=== PATIENT | female | born 1965 | race Caucasian/White ===

== ENCOUNTER → 2020-06-08 14:53 | Outpatient (CLI) | payer MEDICARE, MEDICAID, SELFPAY ==
[2020-06-08 17:15] LABS: Basophils % 0.3 % (0.1-2.0); Eosinophils # 0.1 K/mm3 (0.0-0.4); Eosinophils % 0.6 % (0.1-12.0); Hematocrit 45.9 % (37.0-47.0); Hemoglobin 14.5 g/dL (12.2-16.2); Lymphocytes # 1.8 K/mm3 (0.7-4.5); Lymphocytes % 20.5 % (10-50); Mean Corpuscular HGB Conc 31.5 g/dL (31.8-35.4); Mean Corpuscular Hemoglobin 26.4 pg (27.0-31.2); Mean Corpuscular Volume 83.7 fl (81-99); Mean Platelet Volume 7.6 fl (7.4-10.4); Monocytes # 0.4 K/mm3 (0.1-1.0); Monocytes % 3.9 % (1.7-9.3); Neutrophils # 6.6 K/mm3 (1.8-7.8); Neutrophils % 74.6 % (37.0-80.0); Platelet Count 273 K/mm3 (142-424); Red Blood Count 5.48 M/mm3 (4.20-5.40); Red Cell Distribution Width 12.4 % (11.5-17.5); White Blood Count 8.8 K/mm3 (4.8-10.8)
[2020-06-08 17:26] LABS: Alanine Aminotransferase 13 U/L (12-78); Albumin Level 4.6 g/dl (3.5-5.0); Albumin/Globulin Ratio 1.3 (1.1-1.8); Alkaline Phosphatase 108 U/L (38-126); Anion Gap 12.8 mEq/L (5-15); Aspartate Amino Transferase 23 U/L (14-36); Bilirubin,Total 0.3 mg/dl (0.2-1.3); Blood Urea Nitrogen 11 mg/dl (7-17); Calcium 10.2 mg/dl (8.4-10.2); Carbon Dioxide 28 mmol/L (22.0-30.0); Chloride 102 mmol/L (98-107); Estimated Glomerular Filt Rate 75 ml/min (>60); GFR (African American) 91 ML/MIN (>60); Globulin 3.6 g/dL (1.3-3.2); Glucose 105 mg/dl (74-100); Magnesium 1.7 mg/dl (1.6-2.3); Potassium 3.8 mmoL/L (3.5-5.1); Sodium 139 mmol/L (136-145); Total Protein,Serum 8.2 g/dl (6.3-8.2)
[2020-06-08 17:44] LABS: 25-OH Vitamin D, Total 31.8 ng/mL (30-100)
[2020-06-08 18:15] LABS: Vitamin B12 313 pg/mL (239-931)
== END ==
PROVIDERS: PCP Nurse Practitioner Family; Visit Provider Internal Medicine Gastroenterology
DX: Z01.812 Encounter for preprocedural laboratory examination (principal); Z11.52 Encounter for screening for COVID-19; K21.9 Gastro-esophageal reflux disease without esophagitis; R13.10 Dysphagia, unspecified
CPT/HCPCS: 36415; 80053; 82306; 82607; 83735; 84443; 85025; U0003

== ENCOUNTER → 2020-07-20 14:51 | Outpatient (CLI) | payer MEDICARE, MEDICAID, SELFPAY ==
--- NOTE | 2020-07-20 14:55 | MR_ITS ---
PROCEDURE INFORMATION: Exam: MR Cervical Spine Without Contrast Exam date and time: 07/20/2020 2:55 PM Age: 55 years old Clinical indication: Neck pain; Prior surgery; Surgery date: 6+ months; Additional info: Cervical radiculopathy. HX cervical surgery x1yr ago. Unable to turn head to the left. Bilateral neck and shoulder pain. RT arm tingling. Symptoms [id number]. No injury or trauma. 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 No prior. TECHNIQUE: Imaging protocol: Multiplanar magnetic resonance images of the cervical spine without contrast. Total images: 291 COMPARISON: No relevant prior studies available. FINDINGS: Vertebrae: Odontoid intact. Visualized upper thoracic spine levels were normal. Spinal cord: Mild ventral and dorsal cord surface flattening at C5-C6 related to canal stenosis, with no intrinsic cord signal changes or syrinx. C1-C2: Craniocervical alignment is normal. Unremarkable. C2-C3: Disc desiccation. No canal or foraminal stenosis. C3-C4: Disc desiccation. Slight 1 mm disc bulge. No canal or foraminal stenosis. C4-C5: Slight 1 mm anterolisthesis. Disc desiccation and slight disc space narrowing. 1 mm disc bulge. No central canal stenosis. Moderate left-sided facet hypertrophic change with periarticular edema and periarticular marrow edema. Additional marrow edema with STIR hyperintensity tracks into the leftward pedicles and posterolateral vertebral bodies at C4 and C5. The lack of significant joint fluid or articular erosive change goes against infection somewhat and would tend to favor acute reactive changes of hypertrophic osteoarthritic change although this is not definitive. Postcontrast imaging may be helpful in further characterization. No gross signs of abscess. C5-C6: Disc desiccation and moderate disc space narrowing with 2 mm retrolisthesis and 3 mm posterior mixed spondylotic ridge. Moderate acute reactive end plate changes with STIR hyperintensity. Mild ligamentum flavum hypertrophy. Moderate-severe central canal stenosis with AP thecal sac dimension 6.5 mm. No intrinsic cord signal change. Moderate right and moderate-severe left foraminal stenosis. C6-C7: Prior ACDF without gross hardware complication. Slight central canal stenosis with AP thecal sac dimension 9.5 mm. Slight left foraminal stenosis. C7-T1: Normal. Soft tissues: Soft tissues are unremarkable. Thyroid: The thyroid gland is unremarkable. Vertebral arteries: Expected flow voids in the vertebral arteries. Other findings: Visualized portions of the brain are unremarkable. IMPRESSION: 1. At C5-C6 there is moderate-severe central canal stenosis due to a 3 mm posterior mixed spondylotic protrusion and superimposed ligamentum flavum hypertrophy dorsally, as well as 2 mm degenerative retrolisthesis at this level. 2. Moderate acute reactive end plate changes at C5-C6 with STIR hyperintensity. 3. Moderate left-sided facet arthropathy at C4-C5 demonstrating moderate periarticular marrow edema extending into the leftward pedicles and vertebral bodies, with mild periarticular soft tissue edema. This is nonspecific in nature. It could represent acute reactive inflammatory changes of osteoarthritis. Septic joint seems less likely given the lack of articular erosions and joint fluid, but is not fully excluded, correlate clinically. Postcontrast MRI imaging may be helpful. 4. Multilevel bilateral foraminal stenoses as detailed above.
== END ==
PROVIDERS: PCP Nurse Practitioner Family; Visit Provider Neurological Surgery
DX: M50.20 Other cervical disc displacement, unspecified cervical region (principal); M54.12 Radiculopathy, cervical region
CPT/HCPCS: 72141; 76376

== ENCOUNTER → 2020-10-17 12:58 | Outpatient (CLI) | payer MEDICARE, MEDICAID, SELFPAY ==
--- NOTE | 2020-10-17 13:01 | MR_ITS ---
PROCEDURE: MR LUMBAR SPINE WO/W CON CLINICAL INDICATION: HX OF LUMBAR SURGERY, ACUTE PAIN OF RIGHT LOWER EXTREMITY COMPARISON: MR MR CERVICAL SPINE WO CON from 07/20/2020 TECHNIQUE: Standard multiplanar multiecho sequences are performed without contrast. 3-D MIP and myelographic images are also rendered and reviewed FINDINGS: Normal alignment. Spinal cord ends at L1. T11-T12: Mild degenerative disc disease. T12-L1: Degenerative disc.: Mild degenerative disc disease with minimal bulging disc. Osteophytes are. There is facet ligamentum hypertrophy with lateral recess narrowing. L2-L3: Degenerative disc disease bulging disc with facet ligamentum hypertrophy and with bilateral lateral recess narrowing and moderate bilateral foraminal narrowing greater than right. There is a small central disc protrusion. Borderline canal stenosis. L3-L4: 2 mm anterolisthesis of L3 with bulging disc with severe facet and ligamentum hypertrophic change with moderate canal stenosis at 8 mm and severe bilateral lateral recess narrowing with moderate right and severe left-sided foraminal narrowing. L4-5: Mild bulging disc with severe facet and ligamentum hypertrophy. There is severe bilateral lateral recess narrowing due to the facet and ligamentum hypertrophy. This is slightly greater on the right with impingement upon the descending right L5 and S1 nerve roots and impingement upon the left L5 nerve root. Moderate to severe canal stenosis. L5-S1: Degenerative disc disease with bulging disc with endplate osteophyte. There is a broad-based central and right paracentral bulging disc/disc osteophyte complex eccentric toward the right which is impinging upon the right S1 nerve root. There is severe right foraminal narrowing due to facet hypertrophic change impinging upon the right exiting L5 nerve root. Canal stenosis is present at this level. There is severe facet hypertrophic change. There is severe left foraminal narrowing. IMPRESSION: Abnormal MRI of the lumbar spine. There is multilevel lumbar spondylosis with degenerative disc disease, bulging disc, facet and ligamentum hypertrophy with resultant multilevel canal stenosis, lateral recess narrowing, and foraminal narrowing with neural impingement. Please see above for detailed description at each level. Dictated by: Camacho Sierra MD 10/18/2020 06:42 Camacho Sierra MD in [facility] 10/18/2020 06:42
== END ==
PROVIDERS: PCP Nurse Practitioner Family; Visit Provider Physician Assistant Medical
DX: M54.40 Lumbago with sciatica, unspecified side (principal); M79.604 Pain in right leg; Z98.890 Other specified postprocedural states
CPT/HCPCS: 72158; 76376; A9576

== ENCOUNTER → 2020-11-09 08:37 | Outpatient (CLI) | payer MEDICARE, MEDICAID, SELFPAY ==
--- NOTE | 2020-11-09 08:44 | CT_ITS ---
PROCEDURE INFORMATION: Exam: CT Cervical Spine Without Contrast Exam date and time: 11/09/2020 8:44 AM Age: 55 years old Clinical indication: Other: Bilateral arm numbness/neck pain; Additional info: Cervical myelopathy, cervical cord compression, TECHNIQUE: Imaging protocol: Computed tomography images of the cervical spine without contrast. Radiation optimization: All CT scans at this facility use at least one of these dose optimization techniques: automated exposure control; mA and/or kV adjustment per patient size (includes targeted exams where dose is matched to clinical indication); or iterative reconstruction. COMPARISON: MR CERVICAL SPINE WO CON 07/20/2020 3:06 PM FINDINGS: Vertebrae: There is no evidence of acute fracture. Degenerative osteoarthrosis anteriorly C1-C2 with periarticular spurs and sclerosis. Anterior metallic fusion hardware at C6-C7 appears intact with no evidence of loosening or infection. Straightening of cervical lordosis above the fusion, suggesting muscle spasm. C2-C3: Shallow posterior disc bulge or protrusion indenting the thecal sac series 3, image 36. Central spinal canal appears very mildly narrowed. Neural foramina are ample. C3-C4: Mild degenerative spondylosis. Posterior disc narrowing. Shallow posterior disc bulge. Small lateral uncovertebral spurs greater toward the left. Mild bilateral facet arthropathy. The central spinal canal is very mildly narrowed. Left neural foramen is moderately narrowed, right foramen remains ample. C4-C5: Prominent erosive left facet arthropathy with 2 mm anterolisthesis at C4-C5. The disc appears moderately narrowed posteriorly, and there is mild spondylosis. There is shallow posterior disc bulging. The central spinal canal is minimally narrowed. The left C5 neural foramen appears moderately severely stenosed, and right neural foramen remains ample. C5-C6: The disc appears moderately degenerated and narrowed, with anterior, lateral and posterior spondylosis. Disc-osteophyte complex indents the thecal sac and impinges on the ventral surface of the cord, with at least moderate central spinal stenosis. Canal appears narrowed to 7-8 mm AP diameter in the midline. Mild bilateral facet arthropathy. No significant listhesis is seen in the neutral supine position. Both C6 foramina appear moderately severely stenosed, primarily due to lateral uncovertebral spurs. C6-C7: Post discectomy. Anterior fusion hardware appears intact. The bony central spinal canal is mildly narrowed but adequate. Mild bilateral facet hypertrophy. The C7 foramina are moderately narrowed by facet arthropathy on the right, and lateral uncovertebral spurs on the left. C7-T1: The disc appears narrowed posteriorly. Soft tissue resolution is limited due to metallic hardware. No definite spinal or foraminal stenoses. Other bones/joints: There are no lytic skeletal lesions seen. Soft tissues: No acute findings. No prevertebral swelling or hematoma. Surgical clips in the right face, post parotidectomy; There are no soft tissue masses or fluid collections. Sinuses: Endoscopic sinus surgical changes with bilateral maxillary antrostomies and partial ethmoidectomies. There are bubbly secretions in the right sphenoid sinus, which could be [id number] sinusitis, with some thick fluid in the posterior sinus, series 3, images 7 -10. Mild ethmoid mucosal thickening. Mastoid air cells: Partial opacification of right mastoid air cells, worrisome for mastoid effusion nonspecific etiology. Correlate for acute mastoiditis. Lungs: No acute findings in the visualized lung apices. IMPRESSION: 1. No acute fracture o
== END ==
PROVIDERS: PCP Nurse Practitioner Family; Visit Provider Physician Assistant Medical
DX: M54.2 Cervicalgia (principal); M54.40 Lumbago with sciatica, unspecified side; M54.12 Radiculopathy, cervical region; G95.9 Disease of spinal cord, unspecified; G95.20 Unspecified cord compression
CPT/HCPCS: 72125

== ENCOUNTER → 2021-01-28 12:43 | Outpatient (CLI) | payer MEDICARE, MEDICAID, SELFPAY | PROVIDERS: PCP Nurse Practitioner Family; Visit Provider Nurse Practitioner | DX: Z20.822 Contact with and (suspected) exposure to COVID-19 (principal) | CPT/HCPCS: C9803; U0003; U0005 ==

== ENCOUNTER → 2021-03-11 15:45 | Outpatient (CLI) | payer MEDICARE, MEDICAID, SELFPAY | PROVIDERS: Visit Provider Nurse Practitioner | DX: Z20.822 Contact with and (suspected) exposure to COVID-19 (principal) | CPT/HCPCS: C9803; U0003; U0005 ==

== ENCOUNTER 2024-12-28 13:00 | Outpatient (RCR) | payer MEDICARE, SELFPAY | END 2024-12-28 23:59 | disposition home or self-care (01) | LOC: PT 13:00 | PROVIDERS: Visit Provider Physician Assistant Medical | DX: Z47.89 Encounter for other orthopedic aftercare (principal); Z98.1 Arthrodesis status | CPT/HCPCS: 97014; 97110; 97162; 97530; G0283 ==

== ENCOUNTER 2024-12-28 13:18 | Emergency (ER) | payer MEDICARE, SELFPAY ==
--- OUTSIDE RECORDS SUMMARY | 2024-11-22 11:11 | XMS_ITS | Encounter Summary ---
Author Organization Healthcare Address [address] [place] [address] Care Team Providers Care Blankbook Stitching Machine Operator Name Role Phone Ceci Couch APRN Primary Care Provider Jed Toribio MD Unavailable [phone] Ceci Aguilar Unavailable [phone] Nadir John MD Unavailable [phone] Ceci Aguilar Unavailable [phone] Nadir John MD Unavailable [phone] Encounter Details Date Type Department Care Team (Latest Contact Info) Description 11/22/2024 11:11 AM EDT - 11/22/2024 11:59 PM EDT Hospital En[facility] [address] [place] [id number] S/P cervical spinal fusion; Status post lumbar spinal fusion Discharge Disposition: Home or Self Care Social History Tobacco Use Types Packs/Day Years Used Date Smoking Tobacco: Former Cigarettes 1 40 0 04/1980 - 04/2020 Passive Smoke Exposure: Past Smokeless Tobacco: Never Alcohol Use Standard Drinks/Week Comments Never 0 (1 standard drink = 0.6 oz pur e alcohol) Social Connection and Isolation Panel Answer Date Recorded In a typical week, how many times do you talk on the phone with family, friends, or neighbors? More than three times a week 08/14/2023 How often do you get togethe r with friends or relatives? More than three times a week 08/14/2023 How often do you attend chur or hindu services? Never 08/14/2023 Do you belong to any clubs o r organizations such as mandaeism groups, unions, fraternal or athletic groups, or school groups? No 08/14/2023 How often do you attend meet ings of the clubs or organizations you belong to? Never 08/14/2023 Are you , , di vorced, , never , or living with a partner? 08/14/2023 AUDIT-C Answer Date Recorded Q1: How often do you have a drink containing alcohol? Never 08/14/2023 Q2: How many drinks containi ng alcohol do you have on a typical day when you are drinking? Patient does not drink Q3: How often do you have si x or more drinks on one occasion? Never 08/14/2023 PHQ-2 Answer Date Recorded Patient Health Questionnaire-2 Score 6 06[facility]20[facility] - Occupational Stress Questionnaire Answer Date Recorded Do you feel stress - tense, restless, nervous, or anxious, or unable to sleep at night because your mind is troubled all the time - these days? Not at all 08/14/2023 Exercise Vital Sign Answer Date Recorde d On average, how many days pe r week do you engage in moderate to strenuous exercise (like a brisk walk)? 0 days 08/14/2023 On average, how many minutes do you engage in exercise at this level? 0 min 08/14/2023 PHQ-9 Answer Date Recorded Patient Health Questionnaire-9 Score 20 06/10/2024 Humiliation, Afraid, Rape, and Kick questionnair e Answer Date Recorded Within the last year, have y ou been afraid of your partner or ex-partner? No 10/10/2024 Within the last year, have y ou been humiliated or emotionally abused in other ways by your partner or ex-partner? No Within the last year, have y ou been kicked, hit, slapped, or otherwise physically hurt by your partner or ex-partner? No 10/10/2024 Within the last year, have y ou been raped or forced to have any kind of sexual activity by your partner or ex-partner? No 10/10/2024 Hunger Vital Sign Answer Date Recorded Within the past 12 months, y ou worried that your food would run out before you got the money to buy more. Never true 10/11/19 25 Within the past 12 months, t he food you bought just didn't last and you didn't have money to get more. Never true 10/10/2024 PRAPARE - Transportation Answer Date Re corded In the past 12 months, has l ack of transportation kept you from medical appointments or from getting medications? No 09/30 In the past 12 months, has l ack of transportation kept you from meetings, work, or from getting things needed for daily living? No 10/10/2024 Housing Stability Vital Sign Answer Tc e Recorded In the last 12 months, was t here a time when you were not able to pay the mortgage or rent on time? No 10/10/2024 Number of Times Moved in the Last Year Not on fi le 10/10/2024 At any time in the past 12 m [facility], were you homeless or living in a prison (including now)? No 10/10/2024 Safety and Environment Answer Date Chip rded Do you worry that your child may have been physically abused? Patient declined 08/18/2023 Do you worry that your child may have been sexually abused? Patient declined 08/18/2023 Are there any guns kept in o r around your home or where your child spends time? Patient declined 08/18/2023 Guns Unloaded or Locked Away Not on file Utilities Answer Date Recorded In the past 12 months has th e [employer], [employer], oil, or water [employer] threatened to shut off services in your home? No 10/10/2024 PHQ-2A Answer Date Recorded Patient Health Questionnaire-2 Score 6 11/06/2022 Comments No Sex and Gender Information Value Date Recorded Sex Assigned at Female 01/30/2021 12:26 PM EST Legal Sex Female 8:17 PM EDT Gender Identity Female 01/30/2021 12:26 PM EST Sexual Orientation Not on file documented as of this encounter Medications at Time of Discharge acetaminophen (Tylenol) 500 MG tablet Take 2 tablets by mouth every 6 hours as needed for pain or headaches. 05/31/2024 baclofen (Lioresal) 10 MG tabletIndications:S/ P cervical spinal fusion Take 1 tablet by mouth 3 times a day as needed for muscle spasms. 90 tablet 2 07/12/2024 busPIRone (Buspar) 10 MG tabletIndications:Ot her depression TAKE 1 TABLET BY MOUTH THREE TIMES DAILY 270 tablet 1 11/15/2024 cyclobenzaprine (Fexmid) 7.5 MG tablet Take 1 tablet by mouth 3 times a day. 30 tablet 10/11/2024 fluticasone (Flonase) 50 MCG/ACT nasal spray USE 2 SPRAY(S) IN EACH NOSTRIL ONCE DAILY, SHAKE GENTLY, PRIME BEFORE FIST USE, CLEAN TIP AFTER USE 48 g 3 09/11/2023 lactobacillus (Culturelle Immunity Support) capsule Take 1 capsule by mouth daily. 10/11/2024 lamoTRIgine (LaMICtal) 200 MG tabletIndications:Ot her depression Take 1 tablet by mouth once daily 90 tablet 1 06/01/2024 methocarbamol (Robaxin) 500 MG tabletIndications:St atus post lumbar spinal fusion Take 2 tablets by mouth 4 times a day as needed for muscle spasms. 60 tablet 2 10/25/2024 naloxone (Narcan) 4 mg/0.1 mL nasal spray 1. Give 1 spray in nostril for no/slow breathing or cannot wake after opioid use 2. Call 911 3. Repeat in other nostril if symptoms continue 1 each 05/31/2024 omeprazole (PriLOSEC) [address] capsuleIndications:C hronic GERD TAKE 1 CAPSULE BY MOUTH TWICE DAILY DO NOT CRUSH OR CHEW 180 capsule 1 10/26/2024 ondansetron ODT (Zofran-ODT) 4 MG disintegrating tabletIndications:Na usea DISSOLVE 1 TABLET IN MOUTH EVERY 8 HOURS NEEDED FOR NAUSEA AND VOMITING 20 tablet 10/27/2024 senna-docusate (Jeannine-Colace) 8.6-50 MG tablet Take 2 tablets by mouth 2 times a day. 20 tablet 10/11/2024 sertraline (Zoloft) 100 MG tablet Take 1 tablet by mouth daily. 90 tablet 1 06/01/2024 diazePAM (Valium) 5 MG tabletIndications:St atus post lumbar spinal fusion,S/P cervical spinal fusion Take 1 tablet by mouth every 12 hours as needed for anxiety, sleep or muscle spasms. 45 tablet 10/25/2024 5 oxyCODONE (Roxicodone) 10 MG immediate release tabletIndications:St atus post lumbar spinal fusion,S/P cervical spinal fusion Take 1 tablet by mouth every 6 hours as needed for moderate pain or severe pain. 60 tablet 11/21/2024 5 oxyCODONE (Roxicodone) 15 MG immediate release tablet Take 1 tablet by mouth every 4 hours as needed for severe pain. 30 tablet 10/11/2024 5 oxyCODONE (Roxicodone) 15 MG immediate release tabletIndications:St atus post lumbar spinal fusion,S/P cervical spinal fusion Take 1 tablet by mouth every 6 hours as needed for moderate pain or severe pain. 60 tablet 10/25/2024 venlafaxine XR (Effexor-XR) 150 MG 24 hr capsule Take 1 capsule by mouth daily. Take with food. 90 capsule 1 06/01/2024 5 documented as of this encounter Plan of Treatment Upcoming Encounters Date Type Department Care Team (Late st Contact Info) Description 01/04/2025 3:20 PM EST Office Visit [facility] Orthopaedic Surgery & Sports Medicine [address] [place] [address] Nadir John MD [address] [place] [address] documented as of this encounter Goals Goal Patient Goal Type Associated Problems Recent Progress Patient-Stated? Author Autogenerat ed Goal Care Plan Autogenerated Problem No Jordan, My T documented as of this encounter Procedures Procedure Name Priority Date/Time Associated Diagnosis Comments XR LUMBAR SPINE 2 OR 3 VIEWS Routine 11/22/2024 11:20 AM EDT Status post lumbar spinal fusion XR CERVICAL SPINE 2 OR 3 VIEWS Routine 11/22/2024 11:20 AM EDT S/P cervical spinal fusion documented in this encounter Results * XR Lumbar Spine 2 or 3 Views (11/22/2024 11:20 AM EDT) Anatomical Region Laterality Modality Spine, L-spine Digital Radiogra phy Impressions 11/22/2024 11:34 AM EDT Grade 1 anterolisthesis at C2-3 on flexion only. Anterior cervical fusion hardware without hardware failure or loosening. L2-5 posterior fusion. No hardware failure or loosening. CRITICAL RESULT: No. COMMUNICATION: Per this written report. Drafted by Yemi Rodriguez MD on 11/22/2024 11:32 AM Final report signed by Yemi Rodriguez MD on 11/22/2024 11:34 AM Narrative 11/22/2024 11:34 AM EDT CLINICAL INDICATION: follow up fusion TECHNIQUE: XR LUMBAR SPINE 2 OR 3 VIEWS, XR CERVICAL SPINE 2 OR 3 VIEWS COMPARISON: Radiograph 10/25/2024 FINDINGS: Cervical spine: Patient is edentulous. Grade 1 anterolisthesis at C2-3 on flexion. Postsurgical changes from anterior fusion at C3-4 as well as C4-C6. No prevertebral swelling. Lumbar spine: Overlying soft tissue, stool, bowel gas obscures bone detail. L2- L5 posterior fusion. No hardware failure or loosening. Similar appearance of disc space narrowing and irregularity at L2-3. Grade 1 anterolisthesis at L4-5 redemonstrated. Aortic atherosclerotic vascular calcifications. Marked L5-S1 discogenic disease. Procedure Note Yemi Rodriguez MD - 11/22/2024 CLINICAL INDICATION: follow up fusion TECHNIQUE: XR LUMBAR SPINE 2 OR 3 VIEWS, XR CERVICAL SPINE 2 OR 3 VIEWS COMPARISON: Radiograph 10/25/2024 FINDINGS: Cervical spine: Patient is edentulous. Grade 1 anterolisthesis at C2-3 onflexion. Postsurgical changes from anterior fusion at C3-4 as well asC4-C6. No prevertebral swelling. Lumbar spine: Overlying soft tissue, stool, bowel gas obscures bonedetail. L2-L5 posterior fusion. No hardware failure or loosening. Similarappearance of disc space narrowing and irregularity at L2-3. Grade 1anterolisthesis at L4-5 redemonstrated. Aortic atherosclerotic vascularcalcifications. Marked L5-S1 discogenic disease. IMPRESSION: Grade 1 anterolisthesis at C2-3 on flexion only. Anterior cervical fusion hardware without hardware failure or loosening. L2-5 posterior fusion. No hardware failure or loosening. CRITICAL RESULT: No. COMMUNICATION: Per this written report. Drafted by Yemi Rodriguez MD on 11/22/2024 11:32 AM Final report signed by Yemi Rodriguez MD on 11/22/2024 11:34 AM Ceci SEVERINO IMG XR PROCEDURES Final Result * XR Cervical Spine 2 or 3 Views (11/22/2024 11:20 AM EDT) Anatomical Region Laterality Modality Spine, C-spine Digital Radiogra phy Impressions 11/22/2024 11:34 AM EDT Grade 1 anterolisthesis at C2-3 on flexion only. Anterior cervical fusion hardware without hardware failure or loosening. L2-5 posterior fusion. No hardware failure or loosening. CRITICAL RESULT: No. COMMUNICATION: Per this written report. Drafted by Yemi Rodriguez MD on 11/22/2024 11:32 AM Final report signed by Yemi Rodriguez MD on 11/22/2024 11:34 AM Narrative 11/22/2024 11:34 AM EDT CLINICAL INDICATION: follow up fusion TECHNIQUE: XR LUMBAR SPINE 2 OR 3 VIEWS, XR CERVICAL SPINE 2 OR 3 VIEWS COMPARISON: Radiograph 10/25/2024 FINDINGS: Cervical spine: Patient is edentulous. Grade 1 anterolisthesis at C2-3 on flexion. Postsurgical changes from anterior fusion at C3-4 as well as C4-C6. No prevertebral swelling. Lumbar spine: Overlying soft tissue, stool, bowel gas obscures bone detail. L2- L5 posterior fusion. No hardware failure or loosening. Similar appearance of disc space narrowing and irregularity at L2-3. Grade 1 anterolisthesis at L4-5 redemonstrated. Aortic atherosclerotic vascular calcifications. Marked L5-S1 discogenic disease. Procedure Note Yemi Rodriguez MD - 11/22/2024 CLINICAL INDICATION: follow up fusion TECHNIQUE: XR LUMBAR SPINE 2 OR 3 VIEWS, XR CERVICAL SPINE 2 OR 3 VIEWS COMPARISON: Radiograph 10/25/2024 FINDINGS: Cervical spine: Patient is edentulous. Grade 1 anterolisthesis at C2-3 onflexion. Postsurgical changes from anterior fusion at C3-4 as well asC4-C6. No prevertebral swelling. Lumbar spine: Overlying soft tissue, stool, bowel gas obscures bonedetail. L2-L5 posterior fusion. No hardware failure or loosening. Similarappearance of disc space narrowing and irregularity at L2-3. Grade 1anterolisthesis at L4-5 redemonstrated. Aortic atherosclerotic vascularcalcifications. Marked L5-S1 discogenic disease. IMPRESSION: Grade 1 anterolisthesis at C2-3 on flexion only. Anterior cervical fusion hardware without hardware failure or loosening. L2-5 posterior fusion. No hardware failure or loosening. CRITICAL RESULT: No. COMMUNICATION: Per this written report. Drafted by Yemi Rodriguez MD on 11/22/2024 11:32 AM Final report signed by Yemi Rodriguez MD on 11/22/2024 11:34 AM Ceci SEVERINO IMG XR PROCEDURES Final Result documented in this encounter Visit Diagnoses Diagnosis S/P cervical spinal fusion Arthrodesis status Status post lumbar spinal fusion Arthrodesis status documented in this encounter Additional Health Concerns Active Problems Noted Date Diagnosed Date Autogenerated Problem 09/05/2024 Assessment Noted Time PHQ-9 Depression Total Score: 20 025 9:29 AM EDT A fall risk assessment has been complete d for the patient 11/22/2024 11:38 AM EDT A Body Mass Index follow-up plan has been documented for the patient 11/22/2024 9:23 PM EDT documented as of this encounter Care Teams Blankbook Stitching Machine Operator Relationship Specialty Start Date End Date Ceci Couch APRN [address] [place] [address] PCP - General 07/13/20 Jed Toribio MD [address] [place] [address] Surgeon Neurosurgery 10/02/20 Ceci Aguilar PA [address] [place] [address] Physician Cord Cutter Neurosurgery 10/24/20 Nadir John MD [address] [place] [address] Surgeon Neurosurgery 11/19/20 Ceci Aguilar PA [address] [place] [address] Physician Cord Cutter Neurosurgery 02/13/21 Nadir John MD [address] [place] [address] Surgeon Neurosurgery 04/29/21 documented as of this encounter
--- OUTSIDE RECORDS SUMMARY | 2024-11-22 11:20 | XMS_ITS | Encounter Summary ---
Author Organization Healthcare Address [address] [place] [address] Care Team Providers Care Station Mechanic Name Role Phone Ceci Couch APRN Primary Care Provider [phone] Jed Toribio MD Unavailable [phone] Ceci Gilliam Unavailable [phone] Nadir John MD Unavailable [phone] Ceci Gilliam Unavailable [phone] Nadir John MD Unavailable [phone] Reason for Referral * Consultation (Routine) - Authorized Specialty Diagnoses / Procedures Referred By Jada hoyt Referred To Contact Pain Medicine Diagnoses Status post lumbar spinal fusion S/P cervical spinal fusion Other chronic postprocedural pain Ceci Gilliam PA [address] [place] [address] Phone: tel: fax: Referral ID Status Reason Start Date Expiration Date Visits Requested Visits Authorized [id number] Authorized Specialty Services Required 11/22/2024 05/24/2026 [address] Segundo Mcguire Encounter Details Date Type Department Care Team (Latest Contact Info) Description 11/22/2024 11:20 AM EDT Office Visit [place] [facility] [address] [place] [address] Ceci Gilliam PA [address] [place] [address] Status post lumbar spinal fusion (Primary Dx); S/P cervical spinal fusion; Tobacco use; Other chronic postprocedural pain Social History Tobacco Use Types Packs/Day Years [...] week 08/14/2023 How often do you attend [facility] or faith services? Never 08/14/2023 Do you belong to any clubs o r organizations such as denominational groups, unions, fraternal or athletic groups, or [...] Recorded Patient Health Questionnaire-2 Score 6 06/10/2024 [facility] [place] [facility] - Occupational Stress Questionnaire Answer Date Recorded [...] [facility] time in the past [facility] were you homeless or living in a care home (including now)? No 10/10/2024 Safety and Environment [...] Recorded In the past 12 months has e electric, gas, oil, or water company threatened to shut off services in your home? No 10/10/2024 PHQ-2A Answer Date Recorded Patient Health Questionnaire-2 Score 6 11/06/2022 Comments No Sex and Gender Information Value Date Recorded Sex Assigned at Female 01/30/2021 12:26 PM EST Legal Sex Female 8:17 PM EDT Gender Identity Female 01/30/2021 12:26 PM EST Sexual Orientation Not on file documented as of this encounter Last Filed Vital Signs Vital Sign Reading Time Taken Comments Blood Pressure 108/78 11/22/2024 11:38 AM EDT Pulse 100 11/22/2024 11:38 AM EDT Temperature - - Respiratory Rate - - Oxygen Saturation 100% 11/22/2024 11:38 AM EDT Inhaled Oxygen Concentration - - Weight 50 kg (110 lb 3.7 oz) 11/22/2024 11:38 AM EDT Height 152.4 cm (5') 11/22/2024 11:38 AM EDT Body Mass Index 21.53 11/22/2024 11:38 AM EDT documented in this encounter Miscellaneous Notes * Progress Notes - Ceci Gilliam PA - 11/22/2024 11:20 AM EDT We had the pleasure of seeing your patient in our clinic today for continued Neurosurgical evaluation. Chief Complaint 6 week postoperative follow up. History Of Present Illness Rachel Bronson is a 59 y.o. female here today for continued neurosurgical surveillance. The patient is now 6 weeks status post an L2-L5 laminectomy and fusion with L4-[address] John on 10/07/2024. She is also 6 months status post C3-4 ACDF from prior C4-5-6 and C6-7 ACDFs. Overall, the patient continues to do well. She continues to endorse neck pain with residual numbness and tingling in both hands; however, the numbness and tingling in her hands continues to improve. She feels her balance is still unsteady, reporting a fall on Thursday. Since the fall, she feels numbness in the right lower back and down the right lower extremity into the foot. She endorses pain in the right lower extremity along posterior thigh. She feels her right side is not working well. She states her legs give out on her for no apparent reason. She denies any specific triggers. She is scheduled to start physical therapy on December 05, 2024. She has not had any physical therapy since surgery. She continues taking pain medication, oxycodone, and Valium for muscle spasms which are beneficial. She denies loss of bowel or bladder incontinence. The patient has resumed using nicotine again and smokes up to a pack a day. The patient denies any issues or concerns with the incision. She denies loss of bowel or bladder incontinence. Past Medical History She has a past medical history of Carpal tunnel syndrome, unspecified upper limb, Cellulitis, unspecified, Diverticulitis of large intestine without perforation or abscess without bleeding, Essential(primary) hypertension, GERD (gastroesophageal reflux disease), and Seasonal allergies. Surgical History She has a past surgical history that includes Carpal tunnel release (N/A); section, low transverse (N/A); Sinus surgery (N/A); Other surgical history (N/A); Other surgical history (N/A); Other surgical history (N/A); Other surgical history (N/A); Cervical fusion (Left, 01/30/2021); Lumbar laminectomy (Right, 03/13/2021); Anterior cervical discectomy w/ fusion (Left, 05/27/2024); Neck surgery (Left); Spine surgery; and Spinal fusion (10/07/2024). Family History Family History[1] Social History She reports that she quit smoking about 4 years ago. Her smoking use included cigarettes. She started smoking about 44 years ago. She has a 40 pack-year smoking history. She has been exposed to tobacco smoke. She has never used smokeless tobacco. She reports that she does not drink alcohol and doesnot use drugs. Medications Current Medications[2] Allergies Patient has no known allergies. Review of Systems 14 point review of systems was performed and was negative except as noted per HPI. General Physical Exam Constitutional Oriented to person, place, and time. Appears well-developed and well-nourished. Head Normocephalic and atraumatic. Neck No tracheal deviation or JVD noted. Pulmonary/Chest Effort normal, no shortness of breath Neurological Alert and oriented to person, place, and time Skin Skin is warm and dry Psychiatric Normal mood and affect, behavior and judgment Objective: MUSCULOSKELETAL EXAM: Well healed lumbar incision. Last Recorded Vitals Visit Vitals BP 108/78 Pulse 100 Ht 1.524 m (5') Wt 50 kg (110 lb 3.7 oz) SpO2 100% BMI 21.53 kg/m?? OB Status Postmenopausal Smoking Status Former BSA 1.45 m?? Labs No lab exists for component: ALB Imaging Cervical flexion-extension x-ray films were obtained today and personally reviewed. Imaging demonstrates a grade 1 anterolisthesis at C2-3 on flexion only. Anterior cervical fusion hardware spans from C3-C7 without evidence of hardware failure or loosening noted. Lumbar AP/Lat x-ray films were alsoobtained today and personally reviewed. Imaging demonstrates fusion posteriorly spanning from [id number] evidence of hardware failure or loosening noted. Assessment and Plan Rachel Bronson is a 59 y.o. female here today for continued neurosurgical surveillance. The patient is now 6 weeks status post an L2-L5 laminectomy and fusion with L4-[address] John on 10/07/2024. She is also 6 months status post C3-4 ACDF from prior C4-5-6 and C6-7 ACDFs. Overall, the patient is doing well. She is making progress. We feel she would greatly benefitfrom outpatient physical therapy for which she is scheduled to start on December 05, 2024. We encouraged the patient to continue using a walker for support until strength and mobility have improved with physical therapy. The patient is scheduled to follow up in 6 weeks for continued neurosurgical surv eillance. We will repeat cervical and lumbar x-ray films at follow-up appointment. Because the patient still requires opiate medication for pain control, we will place a referral to pain management to manage chronic opiate use. If the patient continues to endorse symptoms at her scheduled follow-up appointment despite physical therapy, we may elect to obtain new imaging for further diagnostic workup. However, we are hopeful that symptoms will improve with physical therapy. The patient understands that they are not a candidate for surgery unless they have been free from all nicotine products for 6 weeks and we will perform a cotinine test. We spent 3 to 10 minutes counseling them regarding the negative effects of tobacco on health. This includes heart disease, lung cancer, and stroke, as well as acceleration of degenerative change. The patient is agreeable to plan of care. They had the opportunity to ask questions, all of which were answered to their satisfaction. Parts of this note were dictated using [employer] voice recognition software. As a result, errors may occur. When identified, these adjunct faculty for medical terminology errors are corrected, but while every attempt is made to prevent/correct these, errors may still exist. I personally spent a total of 40 minutes on this encounter. This time includes face to face with patient, counseling and discussion and/or coordination of care. I spent >50% in tzey-[id number] communication with the patient over the diagnosis, treatment options and plan. Assessment/Plan Active Problems: There are no active Hospital Problems. Ceci Gilliam PA-C [facility] [place] Department of Neurosurgery [1] Family History Problem Relation Name Age of Onset Aneurysm Father Diabetes Brother Diabetes Father Hyperlipidemia Brother Hyperlipidemia Mother Hypertension Mother Hypertension Brother Migraines Sister [2] Current Outpatient Medications Medication Sig Dispense Refill acetaminophen (Tylenol) 500 MG tablet Take 2 tablets by mouth every 6 hours as needed for pain or headaches. baclofen (Lioresal) 10 MG tablet Take 1 tablet by mouth 3 times a day as needed for muscle spasms. 90 tablet 2 busPIRone (Buspar) 10 MG tablet TAKE 1 TABLET BY MOUTH THREE TIMES DAILY 270 tablet 1 cyclobenzaprine (Fexmid) 7.5 MG tablet Take 1 tablet by mouth 3 times a day. 30 tablet 0 diazePAM (Valium) 5 MG tablet Take 1 tablet by mouth every 12 hours as needed for anxiety, sleep ormuscle spasms. 45 tablet 0 fluticasone (Flonase) 50 MCG/ACT nasal spray USE 2 SPRAY(S) IN EACH NOSTRIL ONCE DAILY, SHAKE GENTLY, PRIME BEFORE FIST USE, CLEAN TIP AFTER USE 48 g 3 lactobacillus (Culturelle Immunity Support) capsule Take 1 capsule by mouth daily. lamoTRIgine (LaMICtal) 200 MG tablet Take 1 tablet by mouth once daily 90 tablet 1 methocarbamol (Robaxin) 500 MG tablet Take 2 tablets by mouth 4 times a day as needed for muscle spasms. 60 tablet 2 naloxone (Narcan) 4 mg/0.1 mL nasal spray 1. Give 1 spray in nostril for no/slow breathing or cannot wake after opioid use 2. Call 911 3. Repeat in other nostril if symptoms continue 1 each 0 omeprazole (PriLOSEC) [address] capsule TAKE 1 CAPSULE BY MOUTH TWICE DAILY DO NOT CRUSH OR CHEW 180capsule 1 ondansetron ODT (Zofran-ODT) 4 MG disintegrating tablet DISSOLVE 1 TABLET IN MOUTH EVERY 8 HOURS ASNEEDED FOR NAUSEA AND VOMITING 20 tablet 0 oxyCODONE (Roxicodone) 10 MG immediate release tablet Take 1 tablet by mouth every 6 hours as needed for moderate pain or severe pain. 60 tablet 0 oxyCODONE (Roxicodone) 15 MG immediate release tablet Take 1 tablet by mouth every 4 hours as needed for severe pain. 30 tablet 0 oxyCODONE (Roxicodone) 15 MG immediate release tablet Take 1 tablet by mouth every 6 hours as needed for moderate pain or severe pain. 60 tablet 0 senna-docusate (Jeannine-Colace) 8.6-50 MG tablet Take 2 tablets by mouth 2 times a day. 20 tablet 0 sertraline (Zoloft) 100 MG tablet Take 1 tablet by mouth daily. 90 tablet 1 venlafaxine XR (Effexor-XR) 150 MG 24 hr capsule Take 1 capsule by mouth daily. Take with food. 90 capsule 1 No current facility-administered medications for this visit. documented in this encounter Plan of Treatment Upcoming Encounters Date Type Department Care Team (Late st Contact Info) Description 01/04/2025 3:20 PM EST Office Visit [facility] [address] [place] [address] Nadir John MD [address] [place] [address] Scheduled Referrals Name Type Priority Associated Diagnoses Orde r Schedule Ambulatory referral to Pain Medicine Outpatient Referral Routine Status post lumbar spinal fusion S/P cervical spinal fusion Other chronic postprocedural pain 1 Occurrences starting 11/22/2024 until 05/26/2026 documented as of this encounter Goals Goal Patient Goal Type Associated Problems Recent Progress Patient-Stated? Author Autogenerat ed Goal Care Plan Autogenerated Problem No Jordan, My T documented as of this encounter Results * XR Cervical Spine 2 or 3 [...] Yemi Rodriguez MD on 11/22/2024 11:34 AM us Ceci SEVERINO IMG XR PROCEDURES Final Result * XR Lumbar Spine 2 or 3 [...] documented in this encounter Visit Diagnoses Diagnosis Status post lumbar spinal fusion- Primary Arthrodesis status S/P cervical spinal fusion Arthrodesis status Tobacco use Other chronic postprocedural pain S/P cervical spinal fusion Arthrodesis status Status [...] documented as of this encounter Care Teams Station Mechanic Relationship Specialty Start Date End Date Ceci Couch APRN [address] [place] [address] PCP - General 07/13/20 Jed Toribio MD [address] [place] [phone] Surgeon Neurosurgery 10/02/20 Ceci Gilliam PA [address] [place] [address] Physician Line Therapist Neurosurgery 10/24/20 Nadir John MD [address] [place] [phone] Surgeon Neurosurgery 11/19/20 Ceci Gilliam PA [address] [place] [address] Physician Line Therapist Neurosurgery 02/13/21 Nadir John MD [address] [place] [phone] Surgeon Neurosurgery 04/29/21 documented as of this encounter
[2024-12-28] VITALS (7 sets, daily range): BP systolic 127–139; BP diastolic 80–97; PULSE 85–105; RESP 16–18; TEMP 37.1–37.2; O2SAT 96–98; BMI 21.4
--- NOTE | 2024-12-28 13:22 | ED_ITS ---
<Statement entered by Varghese Nascimento MD - 12/28/24 20:14> I was consulted by the ELINOR, and we discussed the complexity of the problems being addressed. I approve the treatment and management plan for this patient's care in the emergency department, thus performing a substantive portion of the medical decision making. Varghese Nascimento MD Discharge Plan Disposition Patient Disposition: Home, Self-Care Condition: Good Referrals Follow up/Referrals: Ceci Couch [Primary Care Provider, Medical] - See instructions Activity Restrictions/Add. Instructions Additional Instructions/Restrictions: You were evaluated on an emergency basis. It is very important that you follow- up with your primary care provider and any specialist who we discussed within the next 2 days in order to better assess your health more comprehensively. For example, incidental findings on imaging or laboratory results that were performed today may be discovered, which do not require immediate medical care, but may impact your health in the future. If your symptoms worsen or persist, please return to the emergency department immediately for reassessment. Take all medications as prescribed. In queue for allowing me to participate in your health care, and I hope you feel better soon. Clinical Impressions Clinical Impression: Acute exacerbation of chronic low back pain Instructions Patient Instructions: DI for Low Back Pain Print Language Print Language: Fijian Discharge ED Provider: Varghese Nascimento General Adult HPI General Chief complaint: Fall Stated complaint: AO-12/27/24, fall, Pain lower back/buttocks Time Seen by Provider: 12/28/24 13:24 History of Present Illness HPI narrative: Who presents to department complaints of pain pain following last night. Patient reports she had lumbar fusion done the [facility] on October 07. She states last night while trying to use the restroom her right leg gave out and she fell. She denies hitting her head or loss of consciousness. She does report numbness and tingling to her left leg from her knee down. She also reports tingling but only on the right side of her groin. She denies bowel or bladder incontinence. He reports taking oxycodone 10 mg Q6 that is prescribed by her pain management provider. Related Data Allergies Allergy/AdvReac Type Severity Reaction Status Date / Time No Known Allergies Allergy Unverified 02/17/17 15:35 [facility] Disclaimer: The information contained in this section may have been updated after the patient was seen, as this information can be updated by other users. Social History Smoking Status: Current every day smoker alcohol intake: current current occupational status: previously employed Travel in the last 8 weeks?: None ROS Obtained: Yes other Musculoskeletal Musculoskeletal: Reports back pain, Reports numbness and Reports tingling Neurologic Neurologic: Reports numbness and Reports tingling Physical Exam Narrative Physical exam: General: Awake, aware, in no acute distress HEENT: Normocephalic, no evidence of trauma CV: RRR, no murmurs, rubs, or gallops Pulm: CTA bilaterally with no rhonchi, rales, wheezes ABD: Nontender, no swelling, guarding, or rebound tenderness Psych, appropriate mood and affect Musculoskeletal: Patient with 2+ pulses as well as 5 out of 5 strength in all extremities. Patient with 2+ patellar reflexes bilaterally. Patient reports decrease sensation to her left lower extremity but only from the knee down. She also reports tenderness on palpation of her right buttock. Patient denies tenderness on palpation of her spine. General General appearance: alert Respiratory Respiratory exam: Present normal lung sounds bilaterally Cardiovascular Cardiovascular exam: Present regular rate Neurological Exam Neurological exam: Present alert Medical Decision Making Medical Records Screening: Per USPSTF and CDC recommendations, given the prevalence of disease in our region, it is our hospital?s policy to screen for HIV and viral Hepatitis for all patients aged 18 and over and those with ongoing risk factors. El Inquiry Pt receiving controlled substance: No Vital Signs: 12/28/24 13:24 12/28/24 13:25 12/28/24 13:25 Temperature 99 F 99 F Temperature Source Oral Oral Pulse Rate 94 H 105 H Pulse Rate [Right] 105 H Respiratory Rate 18 18 Blood Pressure 130/80 130/80 Blood Pressure [Right Arm] 130/80 Blood Pressure Mean 85 Blood Pressure Mean [Right Arm] 96 Blood Pressure Source Automatic Cuff Blood Pressure Source [Right Arm] Automatic Cuff Blood Pressure Position Supine Blood Pressure Position [Right Arm] Supine 02 Sat by Pulse Oximetry 98 97 97 Oxygen Delivery Method Room Air Room Air 12/28/24 13:30 12/28/24 14:07 12/28/24 14:31 Temperature Temperature Source Pulse Rate 94 H 86 Pulse Rate [Right] Respiratory Rate 16 Blood Pressure 139/88 138/97 H Blood Pressure [Right Arm] Blood Pressure Mean 105 110 Blood Pressure Mean [Right Arm] Blood Pressure Source Blood Pressure Source [Right Arm] Blood Pressure Position Blood Pressure Position [Right Arm] 02 Sat by Pulse Oximetry 96 98 98 Oxygen Delivery Method Room Air 12/28/24 15:00 Temperature Temperature Source Pulse Rate 85 Pulse Rate [Right] Respiratory Rate Blood Pressure 127/87 Blood Pressure [Right Arm] Blood Pressure Mean Blood Pressure Mean [Right Arm] Blood Pressure Source Blood Pressure Source [Right Arm] Blood Pressure Position Blood Pressure Position [Right Arm] 02 Sat by Pulse Oximetry 98 Oxygen Delivery Method Room Air Lab Data Lab Results 12/28/24 14:07: WBC 8.0, RBC 4.57, Hgb 12.4, Hct 38.8, MCV 84.9, MCH 27.1, MCHC 32.0, RDW 13.9, Plt Count 328, MPV 9.7, Neut % (Auto) 67.7, Lymph % (Auto) 24.2, [place] % (Auto) 6.6, Eos % (Auto) 0.9, Baso % (Auto) 0.3, Neut # (Auto) 5.4, Lymph # (Auto) 1.9, [place] # (Auto) 0.5, Eos # (Auto) 0.1, Baso # (Auto) 0.0, Sodium 135 L, Potassium 3.6, Chloride 98, Carbon Dioxide 31 H, Anion Gap 9.6, BUN 14, Creatinine 0.80, Estimated Creat Clear 61, Estimated GFR 74, Est GFR ( Amer) 89, Glucose 72 L, Calcium 9.9, Magnesium 1.5 L, Total Bilirubin 0.3, AST 20, ALT 10 L, Alkaline Phosphatase 106, Total Protein 7.7, Albumin 3.5, Globulin 4.2 H, Albumin/Globulin Ratio 0.8 L, HCV Ab CORDELL w/Rflx PCR Qn Negative, HIV Ag/Ab Combo Qual Negative 12/28/24 15:27: Urine Color Yellow, Urine Appearance Clear, Urine pH 6.0, Ur Specific Anita 1.025, Urine Protein Negative, Urine Glucose (UA) Negative, Urine Ketones Negative, Urine Blood Negative, Urine Nitrate Negative, Urine Bilirubin Negative, Urine Urobilinogen 0.2, Ur Leukocyte Esterase Negative, Urine RBC 5-10, Urine WBC 10-20, Ur Squamous Epith Cells 5-10, Urine Bacteria 4+, Urine Mucus 4+ 12/28/24 14:07 12/28/24 14:07 Orders (Tests/Meds): ED MEDICATIONS Discontinued Medications Generic Name Dose Route Start Last Admin Trade Name Pat PRN Reason Stop Dose Admin Ketorolac Tromethamine 15 mg 12/28/24 13:45 12/28/24 14:14 Ketorolac 15mg/Ml Vial IV 12/28/24 13:46 15 mg ONCE ONE Administration Magnesium Oxide 400 mg 12/28/24 14:42 12/28/24 15:17 Magnesium Oxide 400mg Tablet PO 12/28/24 14:43 400 mg ONCE ONE Administration Orphenadrine Citrate 60 mg 12/28/24 13:45 12/28/24 14:14 Orphenadrine Citrate 60mg/2ml Vial IV 12/28/24 13:46 60 mg ONCE ONE Administration ORDERS Category Date Time Status CT bony pelvis Stat Cat Scan 12/28/24 13:[address] lumbar spine wo con Stat Cat Scan 12/28/24 13:45 Completed CBC w/Auto Diff [Complete Blood Count Auto Diff] Stat Lab 12/28/24 14:07 Completed CMP [Comprehensive Metabolic Panel] Stat Lab 12/28/24 14:07 Completed Drug Screen,Urine Stat Lab 12/28/24 15:32 Ordered HIV Combo Stat Lab 12/28/24 14:07 Completed Hepatitis C Ab Qual. W/ RFX Stat Lab 12/28/24 14:07 Completed MAG [Magnesium] Stat Lab 12/28/24 14:07 Completed Urinalysis and Microscopic Stat Lab 12/28/24 15:27 Completed Urine Culture Stat Micro 12/28/24 15:27 Received Medical Decision Narrative: Initial impression of presenting illness: 59-year-old female presents emergency department with complaints of pain after falling last night. States that she was attempting to use the restroom when her right leg gave out and she fell. She reports that she had lumbar spinal fusion done with neurosurgery at [facility] on October 07. He reports that she takes 10 mg of oxycodone scheduled every 6 hours as prescribed by her pain management provider. She states since the fall she has had numbness and tingling on her left lower extremity from the knee down. She also reports that she has tingling in her groin but only on the right side of her groin into her buttocks. Denies bowel or bladder incontinence. Differential diagnosis includes but is not limited to: Degenerative disc disease, hardware failure, fracture, cauda equina, herniated disks, musculoskeletal strain Patient arrives hemodynamically stable, afebrile, without respiratory distress with vital signs interpreted by myself. Initial physical exam reveals decree sensation to left lower extremity but only from the knee down. Patient has 5 out of 5 strength in all extremities as well as 2+ patellar reflexes bilaterally. Patient with 2+ pulses in all extremities as well. Rest of exam is unremarkable. Initial diagnostic plan: Laboratory studies, CT of lumbar spine without contrast as well as CT of bony pelvis Results from initial plan were reviewed and interpreted by myself, pertinent positives include: Magnesium 1.5, rest of laboratory studies were nonactionable. Urinalysis was positive for 4+ bacteria however there were 5-10 white blood cells per high-power field as well as 4+ mucus. Will hold on treating patient for UTI as she currently does not have any symptoms and we will wait for culture results before treating. Patient's prevoid bladder scan had 215 mL with a postvoid residual of less than [address] of bony pelvis was unremarkable. CT of lumbar spine without contrast shows L2-L5 fusions with spondylolisthesis of L2 and 3 as well as L4 and 5. Interventions in the ED: Patient was given oral magnesium for supplementation. She was also given Toradol and Norflex for pain control. Patient was made aware of the results and the findings, upon reevaluation patient has remained stable throughout stay, symptoms remained stable. Upon reevaluation patient is resting comfortably in bed with no signs of acute distress. Patient was able to ambulate to the restroom with the use of her home walker without difficulty. Disposition: Reviewed findings today's workup with patient informed no acute abnormalities were noted. Commend that she continue with her previously prescribed oxycodone. Also recommended that she talk to her surgeon if her symptoms are not improving over the next several days to see if additional imaging such as an MRI is needed. Ducted her to return to the emergency department with any new or worsening symptoms. Patient is agreeable to plan of care. Patient made aware of findings and had a detailed discussion with symptomatic care and return precautions, patient voiced understanding. Critical Care Critical Care Time Critical Care Time: No
--- OUTSIDE RECORDS SUMMARY | 2024-12-28 13:34 | XMS_ITS | Clinical Summary ---
Author Organization [facility] Address [address] [id number] Care Team Providers Care Centrifugal Spinner Name Role Phone Ceci Couch APRN Primary Care Provider Jed Toribio MD Unavailable [phone] Ceci Aguilar Unavailable [phone] Nadir John MD Unavailable [phone] Ceci Aguilar Unavailable Nadir John MD Unavailable [phone] Allergies No known active allergies Medications fluticasone (Flonase) 50 MCG/ACT nasal spray USE 2 SPRAY(S) IN EACH NOSTRIL ONCE DAILY, SHAKE GENTLY, PRIME BEFORE FIST USE, CLEAN TIP AFTER USE 48 g 3 09/11/19 24 Active acetaminophen (Tylenol) 500 MG tablet Take 2 tablets by mouth every 6 hours as needed for pain or headaches. 06/01/19 25 Active naloxone (Narcan) 4 mg/0.1 mL nasal spray 1. Give 1 spray in nostril for no/slow breathing or cannot wake after opioid use 2. Call 911 3. Repeat in other nostril if symptoms continue 1 each 06/01/19 25 Active sertraline (Zoloft) 100 MG tablet Take 1 tablet by mouth daily. 90 tablet 1 06/02/19 25 Active lamoTRIgine (LaMICtal) 200 MG tabletIndications :Other depression Take 1 tablet by mouth once daily 90 tablet 1 06/02/19 25 Active baclofen (Lioresal) 10 MG tabletIndications :S/P cervical spinal fusion Take 1 tablet by mouth 3 times a day as needed for muscle spasms. 90 tablet 2 07/13/19 25 Active cyclobenzaprine (Fexmid) 7.5 MG tablet Take 1 tablet by mouth 3 times a day. 30 tablet 10/12/19 25 Active lactobacillus (Culturelle Immunity Support) capsule Take 1 capsule by mouth daily. 10/12/19 25 Active senna-docusate (Jeannine-Colace) 8.6-50 MG tablet Take 2 tablets by mouth 2 times a day. 20 tablet 10/12/19 25 Active methocarbamol (Robaxin) 500 MG tabletIndications :Status post lumbar spinal fusion Take 2 tablets by mouth 4 times a day as needed for muscle spasms. 60 tablet 2 10/26/19 25 Active ondansetron ODT (Zofran-ODT) 4 MG disintegrating tabletIndications :Nausea DISSOLVE 1 TABLET IN MOUTH EVERY 8 HOURS NEEDED FOR NAUSEA AND VOMITING 20 tablet 10/28/19 25 Active omeprazole (PriLOSEC) [address] capsuleIndication s:Chronic GERD TAKE 1 CAPSULE BY MOUTH TWICE DAILY DO NOT CRUSH OR CHEW 180 capsule 1 10/27/19 25 Active busPIRone (Buspar) 10 MG tabletIndications :Other depression TAKE 1 TABLET BY MOUTH THREE TIMES DAILY 270 tablet 1 11/16/19 25 Active diazePAM (Valium) 5 MG tabletIndications :Status post lumbar spinal fusion,S/P cervical spinal fusion Take 1 tablet by mouth every 12 hours as needed for anxiety, sleep or muscle spasms. 45 tablet 12/08/19 25 Active oxyCODONE (Roxicodone) 5 MG immediate release tabletIndications :Status post lumbar spinal fusion,S/P cervical spinal fusion Take 1 tablet by mouth every 6 hours as needed for moderate pain or severe pain. 60 tablet 12/14/19 25 Active venlafaxine XR (Effexor-XR) 150 MG 24 hr capsuleIndication s:Anxiety and depression TAKE 1 CAPSULE BY MOUTH ONCE DAILY WITH FOOD 30 capsule 12/20/19 25 Active venlafaxine XR (Effexor-XR) 150 MG 24 hr capsule Take 1 capsule by mouth daily. Take with food. 90 capsule 1 06/02/19 25 2024 Discontinued oxyCODONE (Roxicodone) 15 MG immediate release tablet Take 1 tablet by mouth every 4 hours as needed for severe pain. 30 tablet 10/12/19 25 2024 Discontinued oxyCODONE (Roxicodone) 15 MG immediate release tabletIndications :Status post lumbar spinal fusion,S/P cervical spinal fusion Take 1 tablet by mouth every 6 hours as needed for moderate pain or severe pain. 60 tablet 10/26/19 25 2024 Discontinued diazePAM (Valium) 5 MG tabletIndications :Status post lumbar spinal fusion,S/P cervical spinal fusion Take 1 tablet by mouth every 12 hours as needed for anxiety, sleep or muscle spasms. 45 tablet 10/26/19 25 2024 Discontinued(R eorder) oxyCODONE (Roxicodone) 10 MG immediate release tabletIndications :Status post lumbar spinal fusion,S/P cervical spinal fusion Take 1 tablet by mouth every 6 hours as needed for moderate pain or severe pain. 60 tablet 11/22/19 25 2024 Discontinued oxyCODONE (Roxicodone) 5 MG immediate release tablet Take 1 tablet by mouth every 6 hours as needed for severe pain for up to 7 days. 28 tablet 12/08/19 25 2024 Active Problems Problem Noted Date Diagnosed Date History of lumbar laminectomy 10/07/2024 Assessment & Plan (10/10/2024 11:39 AM EDT): - s/p L2-5 lami fusion (*CSF leak) - 10/08 XR Lumbar Spine: See findings above - 10/09 CIELO removed; Stitch #1/5 - Len # 4/14 - Change dressing daily with gauze and paper tape. - Continue multimodal PO pain control with scheduled tylenol, flexeril, and PRN baclofen, robaxin, oxycodone. Increased doses of flexeril and robaxin. - Patient reports no BM this admission. Increased daily bowel regimen. - Patient reports history of IBS-C. - Resume home meds as able. - PT/OT following. Recommend acute rehab. CM sent referral to [facility]. - Nursing to assist patient out of bed to the chair at each meal time/evening and with ambulation in the hallway 3 times a day. Spinal stenosis of lumbar re gion with neurogenic claudication 09/05/2024 Assessment & Plan (10/10/2024 11:39 AM EDT): - s/p L2-5 lami fusion (*CSF leak) - 10/08 XR Lumbar Spine: See findings above - 10/09 CIELO removed; Stitch #1/5 - Len # 4/14 - Change dressing daily with gauze and paper tape. - Continue multimodal PO pain control with scheduled tylenol, flexeril, and PRN baclofen, robaxin, oxycodone. Increased doses of flexeril and robaxin. - Patient reports no BM this admission. Increased daily bowel regimen. - Patient reports history of IBS-C. - Resume home meds as able. - PT/OT following. Recommend acute rehab. CM sent referral to [facility]. - Nursing to assist patient out of bed to the chair at each meal time/evening and with ambulation in the hallway 3 times a day. DDD (degenerative disc disease), cervical 2024 DDD (degenerative disc disease), thoracic 2024 Severe protein-calorie malnutrition 05/20/2024 Unable to ambulate 05/19/2024 Spinal stenosis of lumbar re gion without neurogenic claudication 11/18/2022 Spondylolisthesis at L4-L5 level 11/18/2022 History of lumbar fusion 11/18/2022 At high risk for falls 05/16/2021 Chronic pain 01/31/2021 Chronic, continuous use of opioids 01/31/2021 Cervical spinal stenosis 01/30/2021 Cervical myelopathy 11/19/2020 Overview (11/19/2020): Added automatically from request for surgery [id number] Cervical disc disease with myelopathy 11/19/2020 Overview (11/19/2020): Added automatically from request for surgery [id number] Lumbosacral radiculopathy at L5 11/19/2020 Overview (11/19/2020): Added automatically from request for surgery [id number] Esophagogastric junction outflow obstruction Neck pain 05/10/2020 Pre-diabetes 11/03/2019 Acute allergic reaction 11/02/2019 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 Esophageal dysmotility 03/22/2019 Changing skin lesion 03/10/2019 Status post cervical spinal fusion 01/31/2019 Overview (10/02/2020): Arthrodesis status HNP (herniated nucleus pulposus), cervical 01/04 Dysphagia 12/09/2018 Lumbar disc disease with radiculopathy 9 Overview (10/02/2020): Intervertebral disc disorders with radiculopathy, lumbar region Adenoid cystic carcinoma of parotid gland 2017 HNP (herniated nucleus pulposus), lumbar 018 Parotid mass 09/15/2017 Overview (10/02/2020): Disease of salivary gland, unspecified Low back pain 09/08/2017 Mass present on one side of neck 07/16/2017 DDD (degenerative disc disease), lumbar 08/05/19 17 Hearing decreased 02/19/2015 Allergic rhinitis 05/27/2014 Arthralgia of multiple sites 05/27/2014 Chronic GERD 05/27/2014 Assessment & Plan (10/10/2024 11:39 AM EDT): - Has pepcid ordered. Obesity 05/27/2014 Anxiety and depression 08/16/2012 Assessment & Plan (10/10/2024 11:39 AM EDT): - Continue home zoloft, buspar, and effevor. Essential (primary) hypertension 08/16/2012 Hereditary and idiopathic neuropathy 08/16/2012 Hyperlipidemia 08/16/2012 Resolved Problems Problem Noted Date Diagnosed Date Resolved Date Weakness 05/20/2024 05/31/2024 Unable to ambulate 05/19/2024 Lumbar stenosis with neurogenic claudication 2 05/31/2024 Cervical radiculopathy at C6 05/01/2020 02/01/2021 Nausea without vomiting 12/29/20182 05/2024 Encounters Date Type Department Care Team Description 12/19/2024 Refill [facility] [address] [place] [address] Ceci Couch APRN Anxiety and depression (Primary Dx) 12/13/2024 Refill [facility] [address], [address] [place] [address] Ceci Aguilar PA Status post lumbar spinal fusion (Primary Dx); S/P cervical spinal fusion 12/07/2024 Refill [facility] [address] [place] [address] Nadir John MD 12/07/2024 Refill [facility] [address] [place] [address] Nerissa Bangura APRN, DNP Status post lumbar spinal fusion; S/P cervical spinal fusion 12/07/2024 Refill [facility] [address] [place] [address] Nadir John MD Status post lumbar spinal fusion; S/P cervical spinal fusion 11/29/2024 Telephone [facility] [address] [place] [address] [facility], Physician, 11/22/2024 11:20 AM EDT Office Visit [facility] [address] [place] [address] Ceci Aguilar PA Status post lumbar spinal fusion (Primary Dx); S/P cervical spinal fusion; Tobacco use; Other chronic postprocedural pain 11/22/2024 11:11 AM EDT - 11/22/2024 11:59 PM EDT Hospital Encounter [facility] [address] [place] [address] S/P cervical spinal fusion; Status post lumbar spinal fusion Discharge Disposition: Home or Self Care 11/22/2024 Travel 11/18/2024 Refill [facility] [address] [place] [address] Daily Erickson MD Status post lumbar spinal fusion; S/P cervical spinal fusion 11/10/2024 Refill [facility] [address] [place] [address] Ceci Couch APRN Other depression 11/09/2024 Telephone [facility] [address] [place] [address] [facility], Physician, MD 11/04/2024 Refill [facility] [address] [place] [address] Ceci gAuilar PA Status post lumbar spinal fusion (Primary Dx); S/P cervical spinal fusion 11/04/2024 Telephone [facility] [address] [place] [address] Nadir John MD Med Refill 10/25/2024 1:09 PM EDT - 10/25/2024 11:59 PM EDT Hospital Encounter [facility] [address], [address] [place] [address] Status post lumbar spinal fusion; S/P cervical spinal fusion Discharge Disposition: Home or Self Care 10/25/2024 9:20 AM EDT Office Visit [facility] [address] [place] [address] Ceci Aguilar PA Status post lumbar spinal fusion (Primary Dx); S/P cervical spinal fusion; Tobacco use 10/25/2024 Refill [facility] [address] [place] [address] Couch, Ceci E, COMMUNITY SERVICE TECHNICIAN Nausea; Chronic GERD 10/25/2024 Refill [facility] [address] [place] [address] Ceci Aguilar PA 10/25/2024 Refill [facility] [address] [place] [address] Ceci Aguilar PA Status post lumbar spinal fusion (Primary Dx); S/P cervical spinal fusion 10/25/2024 Travel 10/18/2024 Refill [facility] [address] [place] [address] Ceci Aguilar PA Status post lumbar spinal fusion (Primary Dx); Postoperative pain 10/18/2024 Refill [facility] [address] [place] [address] Kyrie Ferrer MD 10/08/2024 Travel 10/07/2024 1:14 PM EDT Anesthesia Event [facility] [address] [place] [phone] Codey Cantrell MD Mitchell, Shad A, CRNA, [facility] 10/07/2024 11:44 AM EDT - 10/11/2024 3:13 PM EDT Hospital Encounter [facility] [address] [place] [id number] Nadir John MD Spinal stenosis of lumbar region with neurogenic claudication [M48.062] (Primary Dx); History of lumbar laminectomy [Z98.890]; Spondylolisthesis at L4-L5 level [M43.16]; History of lumbar fusion Discharge Disposition: Home or Self Care 10/07/2024 11:00 AM EDT - 10/07/2024 3:50 PM EDT Surgery [facility] [address] [place] [address] Nadir John MD L2-L5 Laminectomy and Fusion with L4-L5 TLIF 10/07/2024 Travel 10/04/2024 Refill [facility] [address], [address] [place] [phone] Ceci Aguilar PA Status post lumbar spinal fusion (Primary Dx) 10/03/2024 Refill [facility] [address] [place] [phone] Ceci Aguilar PA Spondylolisthesis at L4-L5 level (Primary Dx); Status post lumbar spinal fusion; Lumbar disc disease with radiculopathy; History of lumbar fusion; Spinal stenosis of lumbar region with neurogenic claudication 10/03/2024 Refill [facility] [address], [address] [place] [address] Nadir John MD Cervical disc disease with myelopathy; S/P cervical spinal fusion; Lumbar disc disease with radiculopathy from Last 3 Months Immunizations Immunization Administration Dates Next Due Influenza, injectable, quadr ivalent, preservative free 11/19/2022,11/16/2019,12/29/2018,2018 Tdap 11/19/2022,05/23/2016 Family History Medical History Relation Name Comments Diabetes Brother 1 Hyperlipidemia Brother 2 Hypertension Brother 3 Aneurysm Father Diabetes Father Hyperlipidemia Mother Hypertension Mother Migraines Sister Relation Name Status Comments Brother 1 Brother 2 Brother 3 Father Mother Sister Social History Tobacco Use Types Packs/Day Years Used Date Smoking Tobacco: Former Cigarettes 1 40 0 04/1980 - 04/2020 Passive Smoke Exposure: Past Smokeless Tobacco: Never Tobacco Cessation:Counseling Given: Not Answered Alcohol Use Standard Drinks/Week Comments Never 0 [...] How often do you attend chur or protestant services? Never 08/14/2023 Do you belong to any clubs o r organizations such as alevism groups, unions, fraternal or athletic groups, or [...] Recorded Patient Health Questionnaire-2 Score 6 06/10/2024 [facility] - Occupational Stress Questionnaire Answer Date [...] any time in the past 12 m [facility], were you homeless or living in a snf (including now)? No 10/10/2024 Safety and Environment [...] the past 12 months has th e electric, gas, oil, or water company threatened to shut off services in your home? No 10/10/2024 PHQ-2A Answer Date Recorded Patient Health Questionnaire-2 Score 6 11/06/2022 Comments No Sex and Gender Information Value Date Recorded Sex Assigned at Female 01/30/2021 12:26 PM EST Legal Sex Female 8:17 PM EDT Gender Identity Female 01/30/2021 12:26 PM EST Sexual Orientation Not on file Last Filed Vital Signs Vital Sign Reading Time Taken Comments Blood Pressure 108/78 11/22/2024 11:38 AM EDT Pulse 100 11/22/2024 11:38 AM EDT Temperature 37 C (98.6 F) 10/11/2024 11:07 AM EDT Respiratory Rate 16 10/11/2024 11:07 AM EDT Oxygen Saturation 100% 11/22/2024 11:38 AM EDT Inhaled Oxygen Concentration - - Weight 50 kg (110 lb 3.7 oz) 11/22/2024 11:38 AM EDT Height 152.4 cm (5') 11/22/2024 11:38 AM EDT Body Mass Index 21.53 11/22/2024 11:38 AM EDT Plan of Treatment Upcoming Encounters Date Type Department Care Team (Late st Contact Info) Description 01/04/2025 3:20 PM EST [facility] [address] [place] [address] Nadir John MD [address] [place] [address] Health Maintenance Due Date Last Done Comments [facility]-Infant/Child/Adol SDOH Screenings 1965 [facility]-Hepatitis B Vaccines (1 of 3 - 19+ 3-dose series) 06/08/1986 [facility]-Pneumococcal Vaccine: 50+ Years (1 of 2 - PCV) 06/08/1986 [facility]-Zoster Vaccines (1 of 2) 06/08/1986 CT Colonography 06/08/2012 FIT-DNA 06/08/2012 FIT 06/08/2012 FOBT 06/08/2012 Sigmoidoscopy 06/08/2012 Lung Cancer Screening Shared Decision Making 06/08/2017 [facility]-Breast Cancer Screening 06/08/2017 [facility]-Pap Smear 09/09/2020 09/09/2017, 07/16/2017 [facility]-Cervical Cancer Screening 09/09/2022 [facility]-HPV/Cotest 09/09/2022 09/09/2017, 07/16/2017 [facility]-Lung Cancer Screening 02/04/20232021, 12/03/2020, 10/09/2017 [facility]-Medicare Annual Wellness (AWV) 08/17/2024 08/18/2023 [id number] Vaccine (3 - season) 2024 01/21/2021, 05/09/2020 [facility]-Influenza Vaccine (#1) 10/31/202411/19, 11/16/2019, 12/29/2018, Additional history exists [facility]- SDOH Screenings 04/12/2025 [facility]-Adult SDOH Screenings 04/12/2025 10/10/2024 [facility]-Depression Screening 06/10/2025 06/10/2024, 05/31 Colonoscopy 08/20/2027 08/19/2017, 08/19/2017 [facility]-Colorectal Cancer Screening 08/20/2027 [facility]-DTaP,Tdap,and Td Vaccines (3 - Td or Tdap) 11/19/2032 11/19/2022, 05/23/2016 [facility]-HIV Screening Completed 05/19/2024 [facility]-Hepatitis C Screening Completed 05/19/2024, [facility]-Diabetes: Hemoglobin A1C Discontinued 09/15/2024, 08/18/2023, 07/10/2022, Additional history exists [facility]-Obesity Intervention Completed 025, 10/25/2024, 09/15/2024, Additional history exists HPV Vaccines Aged Out No longer eligi ble based on patient's age to complete this topic [facility]-HIB Vaccines Aged Out No longer e ligible based on patient's age to complete this topic [facility]-Hepatitis A Vaccines Aged Out No longer eligible based on patient's age to complete this topic [facility]-IPV Vaccines Aged Out No longer e ligible based on patient's age to complete this topic [facility]-Rotavirus Vaccines Aged Out No lo nger eligible based on patient's age to complete this topic Goals Goal Patient Goal Type Associated Problems Recent Progress Patient-Stated? Author Autogenerat ed Goal Care Plan Autogenerated Problem No Jordan, [employer] Implanted Type Area Chief Vendor Quality Device Identifier Shelf Expiration Date Model / Serial / Lot Cif Ui H 7mm 8deg S - S. - [id number] Implanted:Qty: 1 on 01/30/2021 by Nadir John MD at [facility] Cage Left: Spine Cervical [employer] [id number] 01/30/2022 [id number] / . / Cif Ui H 6mm 8deg S - S. - [id number] Implanted:Qty: 1 on 01/30/2021 by Nadir John MD at [facility] Cage Left: Spine Cervical [employer] [id number] 01/30/2022 [id number] / . / Large Diameter 14mm - S. - [id number] Implanted:Qty: 2 on 01/30/2021 by Nadir John MD at [facility] Pin N/A: Spine Cervical [employer] [id number] 01/30/2022 [id number] / . / Plate-03/02/2018 Implanted:03/02 (Quantity not on file) Plate Left: Neck Plate Two Level 32mm - S. - [id number] Implanted:Qty: 1 on 01/30/2021 by Nadir John MD at [facility] Plate N/A: Spine Cervical [employer] -[id number] 01/30/2022 [id number] / . / Self Drilling Screw 14mm - S. - [id number] Implanted:Qty: 4 on 01/30/2021 by Nadir John MD at [facility] Screw N/A: Spine Cervical [employer] -[id number] 01/30/2022 [id number] / . / Graft Vivigen 1cc - [id number] - [id number] Implanted:Qty: 1 on 01/30/2021 by Nadir John MD at [facility] Left: [facility]ervical [facility][id number] 09/07/2021 [id number] / [id number] / [id number] Tissue Vivigen Formable 1.3cc Sm Pk/4 - [id number] - [id number] Implanted:Qty: 1 on 05/27/2024 by Nadir John MD at [facility]ine Cervical [facility]-[id number] 05/13/2025 [id number] / [id number] / [id number] Cage Zero Va Lord 8mm - [id number] Implanted:Qty: 1 on 05/27/2024 by Nadir John MD at [facility] N/A: Spine Cervical [employer] -[id number] 12/30/2033 [id number] / / Compression Pin, 12mm - [id number] Implanted:Qty: 2 on 05/27/2024 by Nadir John MD at [facility] N/A: Spine Cervical [employer] [id number] 05/27/2025 [id number] / / Screw 3.7mm Ti Cervical Selfdrill 16mm - [id number] Implanted:Qty: 2 on 05/27/2024 by Nadir John MD at [facility] N/A: Spine Cervical [employer] [id number] 05/27/2025 [id number] / / Screw 5.5mm Viper Ti Fen Crtcl Polyax 7mm X 45mm - Sna - [id number] Implanted:Qty: 6 on 10/07/2024 by Nadir John MD at [facility] N/A: Spine Lumbar [employer] -[id number] 10/07/2024 [id number] / NA / NA Single Inner Setscrew - Sna - [id number] Implanted:Qty: 8 on 10/07/2024 by Nadir John MD at [facility] N/A: Spine Lumbar [employer] [id number] 10/07/2024 [id number] / NA / NA Giovanny 5.5 Expedium Ti Prelordosed 105mm - Sna - [id number] Implanted:Qty: 2 on 10/07/2024 by Nadir John MD at [facility] N/A: Spine Lumbar [employer] -[id number] 10/07/2024 [id number] / NA / NA Tissue Vivigen Formable [facility] Lg Pk/4 - [id number] - [id number] Implanted:Qty: 1 on 10/07/2024 by Nadir John MD at [facility] N/A: Spine Lumbar [facility]-[id number] 09/21/2025 [id number] / [id number] / [id number] Screw 5.5mm Viper Ti Fen Crtcl Polyax 6mm X 45mm - Sna - [id number] Implanted:Qty: 2 on 10/07/2024 by Nadir John MD at [facility] N/A: Spine Lumbar [employer] LP-[id number] 10/07/2024 [id number] / NA / NA Procedures Procedure Name Priority Date/Time Associated Diagnosis Comments XR LUMBAR SPINE 2 OR 3 VIEWS Routine 11/22/2024 11:20 AM EDT Status post lumbar spinal fusion XR CERVICAL SPINE 2 OR 3 VIEWS Routine 11/22/2024 11:20 AM EDT S/P cervical spinal fusion XR CERVICAL SPINE 2 OR 3 VIEWS Routine 10/25/2024 1:49 PM EDT S/P cervical spinal fusion XR LUMBAR SPINE 2 OR 3 VIEWS Routine 10/25/2024 1:49 PM EDT Status post lumbar spinal fusion CBC W/O DIFFERENTIAL Routine 10/08/2024 5:14 PM EDT BASIC METABOLIC PANEL, PLASMA STAT 10/08/2024 9:31 AM EDT XR LUMBAR SPINE 2 OR 3 VIEWS Routine 10/08/2024 6:32 AM EDT FL LESS THAN 1 HOUR (NON-REPORTABLE) Routine 10/07/2024 4:40 PM EDT ANESTHESIA PERIPHERAL IV PLACEMENT Routine 10/07/2024 1:47 PM EDT ANESTHESIA PERIPHERAL IV PLACEMENT Routine 10/07/2024 1:44 PM EDT PB ANESTHESIA NON-TIMED PROCEDURE PLACEHOLDER Routine 10/07/2024 1:39 PM EDT PB ANESTHESIA PLACEHOLDER Routine 10/07/2024 1:35 PM EDT NV AN ELECTIVE ENDOTRACHEAL AIRWAY Routine 10/07/2024 1:35 PM EDT ADD ON SPINE NAVIGATION 10/07/2024 1:01 PM EDT Spinal stenosis of lumbar region with neurogenic claudication Spondylolisthesis at L4-L5 level History of lumbar laminectomy Incidental durotomy FUSION, SPINE, LUMBAR, TLIF 10/07/2024 1:01 PM EDT Spinal stenosis of lumbar region with neurogenic claudication Spondylolisthesis at L4-L5 level History of lumbar laminectomy Incidental durotomy HEMOGLOBIN A1C Routine 09/15/2024 12:33 PM EDT Chronic bilateral low back pain with bilateral sciatica Lumbar disc disease with radiculopathy Lumbosacral radiculopathy at L5 Essential (primary) hypertension Chronic GERD Degeneration of intervertebral disc of lumbar region with discogenic back pain and lower extremity pain Pre-diabetes Spondylolisthesis at L4-L5 level Hyperlipidemia, unspecified hyperlipidemia type Preop testing Bleeding tendency (CMS/HCC) Tobacco use HEPATITIS C ANTIBODY - ED W/REFLEX TO HCV QUANT PCR STAT 05/19/2024 4:09 PM EDT ED HIV 1/2 ANTIBODY/ANTIGEN SCREEN WITH REFLEX TO HIV I/II DIFFERENTIATION STAT 05/19/2024 4:[address] CHEST W IV CONTRAST Routine 12:57 PM EST Mucoepidermoid carcinoma (CMS/HCC) CYTO DATA CONVERSION Routine 09/09/2017 12:00 AM EDT COLONOSCOPY EXTERNAL RESULT 08/19/2017 from Last 3 Months or Most Recently Relevant to Health Maintenance Results * XR Lumbar Spine 2 or 3 Views (11/22/2024 11:20 AM EDT) Only the most recent of3 resultswithin the time period is included. Anatomical Region Laterality Modality Spine, L-spine Digital [...] or 3 Views (11/22/2024 11:20 AM EDT) Only the most recent of2 resultswithin the time period is included. Anatomical Region Laterality Modality Spine, C-spine Digital [...] Rodriguez MD on 11/22/2024 11:34 AM Ceci Aguilar PA IMG XR PROCEDURES Final Result * (ABNORMAL) CBC W/O Differential (10/08/2024 5:14 PM EDT) WBC Count 10.09 3.70 - 10.30 10*3/uL LAB HEMATOLOGY METHOD 10/08/2024 5:[address] [facility] [facility] RBC Count 3.10(L) 3.90 - 5.20 10*6/uL LAB HEMATOLOGY METHOD 10/08/2024 5:[address] [facility] HGB 8.9(L) 11.2 - 15.7 g/dL LAB HEMATOLOGY METHOD 10/08/2024 5:[address] [facility] HCT 27.2(L) 34.0 - 45.0 % LAB HEMATOLOGY METHOD 10/08/2024 5:[address] [facility] Platelet Count 227 155 - 369 10*3/uL LAB HEMATOLOGY METHOD 10/08/2024 5:[address] [facility] MCV 88 79 - 98 fL LAB HEMATOLOGY METHOD 10/08/2024 5:[address] [facility] MCH 28.7 26.0 - 32.0 pg LAB HEMATOLOGY METHOD 10/08/2024 5:[address] [facility] MCHC 32.7 30.7 - 35.5 g/dL LAB HEMATOLOGY METHOD 10/08/2024 5:[address] [facility] RDW 12.5 11.5 - 14.5 % LAB HEMATOLOGY METHOD 10/08/2024 5:[address] [facility] MPV 9.7 8.8 - 12.5 fL LAB HEMATOLOGY METHOD 10/08/2024 5:[address] [facility] nRBC 0.0 <=0.0 per 100 WBCs LAB HEMATOLOGY METHOD 10/08/2024 5:[address] [facility] Blood Venous blood specimen / Unknown Venipuncture / Unknown 10/08/2024 5:14 PM EDT 10/08/2024 5:21 PM EDT us Nadir John MD LAB BLOOD ORDERABLES Final Resu lt [facility] [address] [place] [address] * (ABNORMAL) Basic metabolic panel (10/08/2024 9:31 AM EDT) Glucose, Plasma 92 74 - 99 mg/dL 10/08/2024 10:[address] [facility] BUN, Plasma 13 7 - 21 mg/dL 10/08/2024 10:[address] [facility] Creatinine, Plasma 0.51(L) 0.60 - 1.10 mg/dL 10/08/2024 10:[address] [facility] BUN/Creatinine Ratio 25 10/08/2024 10:[address] [facility] Sodium, Plasma 139 136 - 145 mmol/L 10/08/2024 10:[address] [facility] Potassium, Plasma 3.8 3.6 - 4.9 mmol/L 10/08/2024 10:[address] [facility] Chloride, Plasma 103 97 - 107 mmol/L 10/08/2024 10:[address] [facility] CO2, Plasma 27 22 - 29 mmol/L 10/08/2024 10:[address] [facility] Anion Gap 9 6 - 16 mmol/L 10/08/2024 10:[address] [facility] Total Calcium, Plasma 8.7(L) 8.9 - 10.2 mg/dL 10/08/2024 10:[address] [facility] eGFRcr 109.0 mL/min/1.7 3m*2 10/08/2024 10:[address] [facility] Comment:Reported eGFRcr in m L/min/1.73m2 is based the CKD-EPI 2020 equation that does not use a race coefficient. Blood Venous blood specimen / Unknown Venipuncture / Unknown 10/08/2024 9:31 AM EDT 10/08/2024 9:42 AM EDT Result Alannah John MD LAB BLOOD ORDERABLES Final Resu lt [facility] [address] [place] [address] * FL Less than 1 Hour Intraoperative (10/07/2024 4:40 PM EDT) Narrative IMAGING - 10/07/2024 4:41 PM EDT Images were obtained for surgical purposes. See Nadir John's surgical note in the patient's chart for the findings. Result Alannah John MD IMG FLUOROSCOPY PROCEDURES May l Result Performing Organization Address [facility] Co de Phone Number IMAGING * Peripheral IV (10/07/2024 1:47 PM EDT) Narrative Adolph Escamilla CRNA, DNP - 10/07/2024 1:47 PM EDT Adolph Escamilla CRNA, DNP 10/07/2024 2:29 PM Peripheral IV Date/Time: 10/07/2024 1:47 PM Inserted by: Codey Cantrell MD Placement Needle size: 18 G Location: foot Site prep: alcohol Technique: anatomical landmarks Attempts: 1 Result Alannah Cantrell MD ANESTHESIA ORDERABLES Final Re sult * Peripheral IV (10/07/2024 1:44 PM EDT) Narrative Adolph Escamilla CRNA, DNP - 10/07/2024 1:44 PM EDT Adolph Escamilla CRNA, DNP 10/07/2024 2:28 PM Peripheral IV Date/Time: 10/07/2024 1:44 PM Other anesthesia staff: Bartolo SNOW. Placement Needle size: 18 G Location: arm Site prep: alcohol Technique: anatomical landmarks Attempts: 1 Result Alannah Cantrell MD ANESTHESIA ORDERABLES Final Re sult * PB ANESTHESIA NON-TIMED PROCEDURE PLACEHOLDER (10/07/2024 1:39 PM EDT) Narrative Adolph Escamilla CRNA, DNP - 10/07/2024 1:39 PM EDT Adolph Escamilla CRNA, DNP 10/07/2024 2:31 PM Arterial Line: Date/Time: 10/07/2024 1:39 PM An arterial line was placed. Procedure performed using surface landmarks in the OR for the following indication(s): continuous blood pressure monitoring. A 20 gauge (size) (length), Arrow (type) catheter was placed into the Left radial artery and secured by tape. Events: patient tolerated procedure well with no complications. Staffing Performed: CHUY Anesthesiologist: Codey Cantrell MD ASSOCIATE MATERIAL HANDLER: Adolph Escamilla CRNA, DNP Codey Cantrell MD ANESTHESIA ORDERABLES Final Re sult * NV AN ELECTIVE ENDOTRACHEAL AIRWAY, PB ANESTHESIA PLACEHOLDER (10/07/2024 1:35 PM EDT) Narrative Adolph Escamilla CRNA, DNP - 10/07/2024 1:35 PM EDT Adolph Escamilla CRNA, DNP 10/07/2024 2:27 PM Airway Date/Time: 10/07/2024 1:35 PM Reason: elective Airway not difficult General Information and Staff Patient location during procedure: OR Anesthesiologist: Codey Cantrell MD ASSOCIATE MATERIAL HANDLER: Adolph Escamilla CRNA, DNP Performed: CHUY Patient Condition Indications for airway management: anesthesia and airway protection Patient position: sniffing Final Airway Details Final airway type: endotracheal airway Successful airway: ETT Cuffed: yes Successful intubation technique: video laryngoscopy Adjuncts used in placement: intubating stylet Endotracheal tube insertion site: oral Blade: Bennie Blade size: #3 ETT size (mm): 7.0 Cormack-Lehane Classification: grade I - full view of glottis Placement verified by: chest auscultation and capnometry Measured from: lips ETT to lips (cm): 21 Codey Cantrell MD ANESTHESIA ORDERABLES Final Re sult * Hemoglobin A1c (09/15/2024 12:33 PM EDT) Hemoglobin A1c 5.4 <5.7 % 09/15/2024 3:[address] [facility] Blood Venous blood specimen / Unknown Venipuncture / Unknown 09/15/2024 12:33 PM EDT 09/15/2024 12:[address] [facility] - 09/15/2024 3:44 PM EDT HA1C Interpretive Data: Diagnosis of Diabetes: Diabetic > or = 6.5% Pre-diabetic 5.7 to 6.4% Non-diabetic < or = 5.6% Glycemic Targets for Type I and Type II Diabetics: Non- Adults <7.0% Adults <6.0% Children and Adolescents <7.5% Source: [place] [employer]. Standards of medical care in diabetes,2017. Diabetes Care.2017:40 (suppl 1):S1-S135. Ceci SEVERINO LAB BLOOD ORDERABLES Final Resu lt Performing Organization Address [facility] Co de Phone Number [facility] [address] [place] [address] * ED HIV 1/2 Antibody/Antigen Screen w/Reflex to HIV 1/2 Differentiation (05/19/2024 4:09 PM EDT) Pathologist [facility] HIV 1 & 2 Antibody/Antigen Screen Non Reactive Non Reactive 05/19/2024 5:[address] [facility] Comment:Screening for HIV 1 & 2 antibodies, and P24 antigen is NONREACTIVE. No confirmatory testing is required. Blood Venous blood specimen / Unknown Venipuncture / Unknown 05/19/2024 4:09 PM EDT 05/19/2024 4:39 PM EDT Lloyd Klein MD LAB BLOOD ORDERABLES Final Resul t [facility] [address] [place] [address] * Hepatitis C Antibody - ED (05/19/2024 4:09 PM EDT) Hepatitis C Antibody Negative Negative 05/19/2024 5:[address] [facility] Blood Venous blood specimen / Unknown Venipuncture / Unknown 05/19/2024 4:09 PM EDT 05/19/2024 4:38 PM EDT us Lloyd Klein MD LAB BLOOD ORDERABLES Final Resul t [facility] [address] [place] [address] * CT Chest w IV Contrast (02/04/2022 12:57 PM EST) Anatomical Region Laterality Modality Chest Computed Tomogra phy Impressions 02/04/2022 2:27 PM EST No evidence of thoracic progression. CRITICAL RESULT: No. COMMUNICATION: Per this written report. Dictated by Esvin Obregon MD on 02/04/2022 2:25 PM Signed by Esvin Obregon MD on 02/04/2022 2:27 PM Narrative 02/04/2022 2:27 PM EST Exam/Procedure: CT CHEST W IV CONTRAST ordered by RYAN HENRIQUEZ [id number] CLINICAL INDICATION: Head/neck cancer, staging TECHNIQUE: Multiple CT helical images were obtained from thoracic inlet through upper abdomen with administration of IV contrast. 100 mL of Omnipaque-300 were administered intravenously. Total DLP (Dose-Length Product): 684 mGy*cm. Please note: The reported value represents the total of one or more individual components during the CT acquisition on this date and at this time, and as such, the same value may appear in more than one CT report depending on the interpreting/reporting physicians. COMPARISON: December 03, 2020 FINDINGS: Mediastinum and Pleura: No mediastinal or hilar adenopathy. No pleural or pericardial effusion. Lipomatous hypertrophy of the interatrial septum. Lungs: No suspicious pulmonary nodules. Upper Abdomen: No suspicious lesions in the partially visualized upper abdomen. Musculoskeletal: No suspicious lytic or sclerotic lesion. Procedure Note Esvin Obregon MD - 02/04/2022 Exam/Procedure: CT CHEST W IV CONTRAST ordered by RYAN [id number] CLINICAL INDICATION: Head/neck cancer, staging TECHNIQUE: Multiple CT helical images were obtained from thoracic inlet through upperabdomen with administration of IV contrast. 100 mL of Omnipaque-300 wereadministered intravenously. Total DLP (Dose-Length Product): 684 mGy*cm. Please note: The reportedvalue represents the total of one or more individual components during theCT acquisition on this date and at this time, and as such, the same valuemay appear in more than one CT report depending on theinterpreting/reporting physicians. COMPARISON: December 03, 2020 FINDINGS: Mediastinum and Pleura: No mediastinal or hilar adenopathy. No pleural orpericardial effusion. Lipomatous hypertrophy of the interatrial septum. Lungs: No suspicious pulmonary nodules. Upper Abdomen: No suspicious lesions in the partially visualized upperabdomen. Musculoskeletal: No suspicious lytic or sclerotic lesion. IMPRESSION: No evidence of thoracic progression. CRITICAL RESULT: No. COMMUNICATION: Per this written report. Dictated by Esvin Obregon MD on 02/04/2022 2:25 PM Signed by Esvin Obregon MD on 02/04/2022 2:27 PM Ryan Henriquez MD IMG CT PROCEDURES Final Re sult * Cytology (09/09/2017 12:00 AM EDT) 09/09/2017 09/09/2017 8:4 4 AM EDT Narrative [facility] - 09/10/2017 9:28 AM EDT [facility] MR #: [id number] [facility] [address] [place] [address] 1965 (Age: 52) FW Collect Date: 09/09/2017 00:00 Receipt Date: 09/09/2017 08:44 Page 1 DEPARTMENT OF PATHOLOGY AND LABORATORY MEDICINE CYTOPATHOLOGY REPORT Email: [email or web address] [phone] ATTENDING MD/Practitioner: Gillian Kulkarni MD Service: [facility] Location: [facility] Reported: 09/10/2017 09:28 Collected: 09/09/2017 00:00 [facility] [address] [place] [address] OUTSIDE DIAGNOSIS PAROTID, RIGHT, FNA (OUTSIDE CONSULT CASE; [id number]; DOS 08/25/2017, THIN PREP ONLY): - BASALOID SALIVARY GLAND NEOPLASM, SEE COMMENT. COMMENT The specimen is cellular, and demonstrates matrix material which is more rounded than fibrillar (although this is somewhat difficult to evaluate in this preparation). Cells are seen admixed with matrix material in some areas. The differential diagnosis includes adenoid cystic carcinoma, cellular pleomorphic adenoma, and basal cell neoplasm. Complete excision of the lesion is suggested. This case has been shown in consultation to Dr. Maggie Coy, who concurs with the diagnosis. Electronically Signed Out Radhames Henriquez MD PROCEDURES/ADDENDA CLINICAL INFORMATION: Other Clinical Conditions: Specimen obtained on: 08/25/2017 CLINICAL DIAGNOSIS For clinical data and diagnosis (ATYPICAL) for this specimen ([id number]/ PAROTID, FNA, RIGHT) see final report issued by [facility] Pathology Department. 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 A pathologist has performed and is responsible for the reported pathologic evaluation. Zack Kulkarni MD LAB PATHOLOGY ORDERABLES Final R esult [facility] * COLONOSCOPY EXTERNAL RESULT (08/19/2017) Anatomical Region Laterality Modality Endoscopy Narrative 08/19/2017 Ordered by an unspecified provider. us External Provider GI PROCEDURE ORDERABLES Final Result from Last 3 Months or Most Recently Relevant to Health Maintenance Additional Health Concerns Active Problems Noted Date Diagnosed Date Autogenerated Problem 09/05/2024 Insurance [employer] MEDICARE Advance Directives * Full Code (Latest Code Status on File) Date Activated Date Inactivated Comments 10/07/2024 5:55 PM 10/11/2024 5:18 PM Question Answer Comments I have reviewed the capacity from the link above and, if needed, have updated to appropriate status: Yes * Full Code Date Activated Date Inactivated Comments 05/20/2024 1:30 AM 05/31/2024 4:30 PM * Full Code Date Activated Date Inactivated Comments 01/30/2021 2:06 PM 02/01/2021 2:25 PM Question Answer Comments Patient has decision-making capacity? Yes Care Teams Centrifugal Spinner Relationship Specialty Start Date End Date Ceci Couch APRN [address] [place] [address] PCP - General 07/13/20 Jed Toribio MD [address] [place] [address] Surgeon Neurosurgery 10/02/20 Ceci Aguilar PA [address] [place] [address] Physician Oxygen Equipment Aide Neurosurgery 10/24/20 Nadir John MD [address] [place] [address] Surgeon Neurosurgery 11/19/20 Ceci Aguilar PA [address] [place] [phone] Physician Oxygen Equipment Aide Neurosurgery 02/13/21 Nadir John MD [address] [place] [address] Surgeon Neurosurgery 04/29/21
--- OUTSIDE RECORDS SUMMARY | 2024-12-28 13:34 | XMS_ITS | Encounter Summary ---
Author Organization [facility] Address [address] [id number] Care Team Providers Care Wellness Program Manager Name Role Phone Ceci Couch APRN Primary Care Provider Jed Toribio MD Unavailable Ceci Aguilar Unavailable [phone] Myles Henriquez MD Unavailable [phone] Nadir John MD Unavailable [phone] Ceci Aguilar Unavailable [phone] Nadir John MD Unavailable [phone] Rosa Chaney PACKAGING ASSOCIATE Unavailable Unavailab Jade Murillo PACKAGING ASSOCIATE Unavailable Unavailable Reason for Visit * Reason Comments Med Refill Encounter Details Date Type Department Care Team (Late st Contact Info) Description 09/09/2023 Refill [facility] [address] [place] [address] Ceci Couch APRN [address] [place] [address] History of lumbar fusion; Spondylolisthesis at L4-L5 level; Lumbar disc disease with radiculopathy Social History Tobacco Use Types Packs/Day Years Used Date Smoking Tobacco: Every Day Cigarettes 1 40 Started: 04/1980; Last attempted to quit: 04/2020 Passive Smoke Exposure: Past Smokeless Tobacco: Never Alcohol Use Standard Drinks/Week Comments Never 0 (1 standard drink = 0.6 oz pur e alcohol) Humiliation, Afraid, Rape, and Kick questionnair e Answer Date Recorded Within the last year, have y ou been afraid of your partner or ex-partner? Patient declined 08/18/2023 Within the last year, have y ou been humiliated or emotionally abused in other ways by your partner or ex-partner? Patient declined 08/18/2023 Within the last year, have y ou been kicked, hit, slapped, or otherwise physically hurt by your partner or ex-partner? Patient declined 08/18/2023 Within the last year, have y ou been raped or forced to have any kind of sexual activity by your partner or ex-partner? Patient declined 08/18/2023 Social Connection and Isolation Panel Answer Date Recorded In a typical week, how many times do you talk on the phone with family, friends, or neighbors? More than three times a week 08/14/2023 How often do you get togethe r with friends or relatives? More than three times a week 08/14/2023 How often do you attend chur ch or jewish services? Never 08/14/2023 Do you belong to any clubs o r organizations such as religion groups, unions, fraternal or athletic groups, or [...] Answer Date Recorded Patient Health Questionnaire-2 Score 0 08/18/2023 [facility] - Occupational Stress Questionnaire Answer Date Recorded [...] exercise at this level? 0 min 08/14/2023 Hunger Vital Sign Answer Date Recorded Within the past 12 months, y ou worried that your food would run out before you got the money to buy more. Never true 08/18/19 24 Within the past 12 months, t he food you bought just didn't last and you didn't have money to get more. Never true 08/18/2023 PRAPARE - Transportation Answer Date Re corded In the past 12 months, has l ack of transportation kept you from medical appointments or from getting medications? No 07/31 In the past 12 months, has l ack of transportation kept you from meetings, work, or from getting things needed for daily living? No 08/18/2023 Housing Stability Vital Sign Answer Tc e Recorded In the last 12 months, was t here a time when you were not able to pay the mortgage or rent on time? No 08/18/2023 In the last 12 months, how many places have you lived? 1 08/18/2023 In the last 12 months, was t here a time when you did not have a steady place to sleep or slept in a residential (including now)? No 08/18/2023 PHQ-9 Answer Date Recorded Patient Health Questionnaire-9 Score 20 03/06/2023 Safety and Environment Answer Date Chip rded [...] shut off services in your home? No 08/18/2023 PHQ-2A Answer Date Recorded Patient Health Questionnaire-2 Score 6 11/06/2022 Comments No Sex and Gender Information Value Date Recorded Sex Assigned at Female 01/30/2021 12:26 PM EST Legal Sex Female 8:17 PM EDT Gender Identity Female 01/30/2021 12:26 PM EST Sexual Orientation Not on file documented as of this encounter Miscellaneous Notes * Telephone Encounter - Valentina Gaming PharmD - 09/11/2023 10:08 AM EDT 2 medication(s) has been approved per protocol. documented in this encounter Plan of Treatment Upcoming Encounters Date Type Department Care Team (Late st Contact Info) Description 01/04/2025 3:20 PM EST Office Visit [facility] Orthopaedic Surgery & Sports Medicine [address] [place] [address] Nadir John MD [address] [facility] [place] [address] documented as of this encounter Visit Diagnoses Diagnosis History of lumbar fusion Spondylolisthesis at L4-L5 level Lumbar disc disease with radiculopathy documented in this encounter Additional Health Concerns Assessment Noted Time PHQ-9 Depression Total Score: 20 024 9:31 AM EST A fall risk assessment has been complete d for the patient 03/06/2023 9:34 AM EST A Body Mass Index follow-up plan has been documented for the patient 08/18/2023 11:37 AM EDT documented as of this encounter Care Teams Wellness Program Manager Relationship Specialty Start Date End Date Ceci Couch APRN [address] [place] [address] PCP - General 07/13/20 Jed Toribio MD [address] [place] [address] Surgeon Neurosurgery 10/02/20 Ceci Aguilar PA [address] [place] [phone] Physician Stock Broker Supervisor Neurosurgery 10/24/20 Myles Henriquez MD [address] [place] [phone] Consulting Physician Radiation Therapy 11/02/20 Nadir John MD [address] [place] [address] Surgeon Neurosurgery 11/19/20 Ceci Aguilar PA [address] [place] [address] Physician Stock Broker Supervisor Neurosurgery 02/13/21 Nadir John MD [address] [place] [address] Surgeon Neurosurgery 04/29/21 Rosa Chaney LPN VALUE-BASED TRANSFORMATION PROGRAM Licensed Practical Nurse 08/13/23 09/17/23 Jade Pack LPN [employer] [address] TCM Nurse 06/07/24 07/07/24 documented as of this encounter
--- OUTSIDE RECORDS SUMMARY | 2024-12-28 13:35 | XMS_ITS | Encounter Summary ---
Author Organization Healthcare Address [address] [place] [address] Care Team Providers Care Hat Finisher Name Role Phone Ceci Couch APRN Primary Care Provider Jed Toribio MD Unavailable Ceci Aguilar Unavailable [phone] Nadir John MD Unavailable [phone] Ceci Aguilar Unavailable [phone] Nadir John MD Unavailable [phone] Encounter Details Date Type Department Care Team (Late st Contact Info) Description 11/29/[address] [facility] [address] [place] [phone] [facility], Physician, [address] [place], [place] [id number] Social History Tobacco Use Types Packs/Day Years [...] How often do you attend chur or uatsdin services? Never 08/14/2023 Do you belong to any clubs o r organizations such as restoration groups, unions, fraternal or athletic groups, or [...] Recorded Patient Health Questionnaire-2 Score 6 06/10/2024 [facility] - Occupational Stress Questionnaire Answer Date Recorded [...] time in the past 12 m [facility], were you homeless or living in a nursing home (including now)? No 10/10/2024 Safety and [...] on file documented as of this encounter Plan of Treatment Upcoming Encounters Date Type Department Care Team (Late st Contact Info) Description 01/04/2025 3:20 PM EST Office Visit [facility] Orthopaedic Surgery & Sports Medicine [address] [place] [address] Nadir John MD [address] [place] [address] documented as of this encounter Goals Goal Patient Goal Type Associated Problems Recent Progress Patient-Stated? Author Autogenerat ed Goal Care Plan Autogenerated Problem No Jordan, My T documented as of this encounter Visit Diagnoses Not on filedocumented in this encounter Additional Health Concerns Active [...] documented as of this encounter Care Teams Hat Finisher Relationship Specialty Start Date End Date Ceci Couch APRN [address] [place] [address] PCP - General 07/13/20 Jed Toribio MD [address] [place] [address] Surgeon Neurosurgery 10/02/20 Ceci Aguilar PA [address] [place] [address] Physician Food Preparer Neurosurgery 10/24/20 Nadir John MD [address] [place] [address] Surgeon Neurosurgery 11/19/20 Ceci Aguilar PA [address] [place] [address] Physician Food Preparer Neurosurgery 02/13/21 Nadir John MD [address] [place] [phone] Surgeon Neurosurgery 04/29/21 documented as of this encounter
--- OUTSIDE RECORDS SUMMARY | 2024-12-28 13:35 | XMS_ITS | Encounter Summary ---
Author Organization [employer] ([place], [place], [place], [place]) Address [address] [place] [address] Care Team Providers Care Industrial Nurse Name Role Phone Unavailable Primary Care Provider Unavailabl e Encounter Details Date Type Department Care Team (Late st Contact Info) Description 06/29/2018 Transcribed Document [facility] [place] Family Medicine [address] [place] [address] ProviderZe MD [address] [place] [address] Social History Tobacco Use Types Packs/Day Years Used Date Smoking Tobacco: Never Assessed Comments Unknown Sex and Gender Information Value Date Recorded Sex Assigned at Female 08/27/2021 7:27 PM CDT Legal Sex Female 7:27 PM CDT Gender Identity Female 08/27/2021 7:27 PM CDT Sexual Orientation Not on file documented as of this encounter Miscellaneous Notes * Cerner Conversion Note - Ze Edwards MD - 06/29/2018 11:39 AM CDT Patient Education Materials Follows:and Gynecology Monitored Anesthesia Care Anesthesia is a term that refers to techniques, procedures, and medicines that help a person stay safe and comfortable during a medical procedure. Monitored anesthesia care, or sedation, is one type of anesthesia. Your anesthesia specialist may recommend sedation if you will be having a procedure that does not require you to be unconscious, such as: ??? Cataract surgery. ??? A dental procedure. ??? A biopsy. ??? A colonoscopy. During the procedure, you may receive a medicine to help you relax (sedative). There are three levels of sedation: ??? Mild sedation. At this level, you may feel awake and relaxed. You will be able to follow directions. ??? Moderate sedation. At this level, you will be sleepy. You may not remember the procedure. ??? Deep sedation. At this level, you will be asleep. You will not remember the procedure. The more medicine you are given, the deeper your level of sedation will be. Depending on how you respond to the procedure, the anesthesia specialist may change your level of sedation or the type of anesthesia to fit your needs. An anesthesia specialist will monitor you closely during the procedure. Let your health care provider know about: ??? Any allergies you have. ??? All medicines you are taking, including vitamins, herbs, eye drops, creams, and vipl-acb-asfnilj medicines. ??? Any use of steroids (by mouth or as a cream). ??? Any problems you or family members have had with sedatives and anesthetic medicines. ??? Any blood disorders you have. ??? Any surgeries you have had. ??? Any medical conditions you have, such as sleep apnea. ??? Whether you are or may be . ??? Any use of cigarettes, alcohol, or street drugs. What are the risks? Generally, this is a safe procedure. However, problems may occur, including: ??? Getting too much medicine (oversedation). ??? Nausea. ??? Allergic reaction to medicines. ??? Trouble breathing. If this happens, a breathing tube may be used to help with breathing. It will be removed when you are awake and breathing on your own. ??? Heart trouble. ??? Lung trouble. Before the procedure Staying hydrated Follow instructions from your health care provider about hydration, which may include: ??? Up to 2 hours before the procedure ? you may continue to drink clear liquids, such as water, clear fruit juice, black coffee, and plain tea. Eating and drinking restrictions Follow instructions from your health care provider about eating and drinking, which may include: ??? 8 hours before the procedure ? stop eating heavy meals or foods such as meat, fried foods, or fatty foods. ??? 6 hours before the procedure ? stop eating light meals or foods, such as toast or cereal. ??? 6 hours before the procedure ? stop drinking milk or drinks that contain milk. ??? 2 hours before the procedure ? stop drinking clear liquids. Medicines Ask your health care provider about: ??? Changing or stopping your regular medicines. This is especially important if you are taking diabetes medicines or blood thinners. ??? Taking medicines such as aspirin and ibuprofen. These medicines can thin your blood. Do not take these medicines before your procedure if your health care provider instructs you not to. Tests and exams ??? You will have a physical exam. ??? You may have blood tests done to show: ? How well your kidneys and liver are working. ? How well your blood can clot. General instructions ??? Plan to have someone take you home from the hospital or clinic. ??? If you will be going home right after the procedure, plan to have someone with you for 24 hours. What happens during the procedure? Your blood pressure, heart rate, breathing, level of pain and overall condition will be monitored. ??? An IV tube will be inserted into one of your veins. ??? Your anesthesia specialist will give you medicines as needed to keep you comfortable during the procedure. This may mean changing the level of sedation. ??? The procedure will be performed. After the procedure ??? Your blood pressure, heart rate, breathing rate, and blood oxygen level will be monitored until the medicines you were given have worn off. ??? Do notdrive for 24 hours if you received a sedative. ??? You may: ? Feel sleepy, clumsy, or nauseous. ? Feel forgetful about what happened after the procedure. ? Have a sore throat if you had a breathing tube during the procedure. ? Vomit. This information is not intended to replace advice given to you by your health care provider. Make sure you discuss any questions you have with your health care provider. Document Released: 11/12/2005 Document Revised: 07/25/2016 Document Reviewed: 06/08/2016 [employer]) Interactive Patient Education ? 2017 [employer] ([employer] Ophthalmology Cataract A cataract is cloudiness on the lens of your eye. The lens is the clear part of your eye that is behind your iris and pupil. The lens focuses light on the retina, which lets you see clearly. When a lens becomes cloudy, vision may become blurry. The clouding can range from a tiny dot to complete cloudiness. As some cataracts develop, they make a person more nearsighted. Other cataracts increase glare. Cataracts can worsen over time, and sometimes the pupil can look white. Cataracts get bigger and they cloud more of the lens, making it difficult to see. Cataracts can affect one eye or both eyes. What are the causes? Most cataracts are associated with age-related eye changes. The eye lens is mostly made up of water and protein. Normally, this protein is arranged in a way that keeps the lens clear. Cataracts develop when protein begins to clump together over time. This clouds the lens and lets less light pass through to the retina, which causes blurry vision. What increases the risk? This condition is more likely to develop in people who: ??? Are 60 years of age or older. ??? Have diabetes. ??? Have high blood pressure. ??? Take?certain medicines, such as steroids or hormone replacement therapy. ??? Have had an eye injury. ??? Have or have had eye inflammation. ??? Have a family history of cataracts. ??? Smoke. ??? Drink alcohol heavily. ??? Are frequently exposed to sun or very strong light without eye protection. ??? Are obese. ??? Have been exposed to large amounts of radiation, lead, or other toxic substances. ??? Have had eye surgery. What are the signs or symptoms? The main symptom of a cataract is blurry vision. Your vision may change or get worse over time. Other symptoms include: ??? Increased glare. ??? Seeing a bright ring or halo around light. ??? Poor night vision. ??? Double vision in one eye. ??? Having trouble seeing, even while wearing contact lenses or glasses. ??? Seeing colors that appear faded. ??? Trouble telling the difference between blue and purple. ??? Needing frequent changes to your prescription glasses or contacts. How is this diagnosed? This condition is diagnosed with a medical history and eye exam. You may need to see an qa specialist (donkey ride operator or solar manufacturer's representative). Your health care provider may enlarge (dilate) your pupils with eye drops to see the back of your eye more clearly and look for signs of cataracts or other damage. You may also have tests, including: ??? A visual acuity test. This uses a chart to determine the smallest letters that you can see from a specific distance. ??? A slit-lamp exam. This uses a microscope to examine small sections of your eye for abnormalities. ??? Tonometry. This test measures the pressure of the fluid inside your eye. How is this treated? Treatment depends on the stage of your cataract. For an early cataract, vision may improve by using different eyeglasses or stronger lighting. If that does not help your vision, surgery may be recommended to remove the cataract. If your health care provider thinks your cataract may be linked to any medicines that you are taking, he or she may change your medicines. Follow these instructions at home: Lifestyle ??? Use stronger or brighter lighting. ??? Consider using a magnifying glass for reading or other activities. ??? Become familiar with your surroundings. Having poor vision can put you at a greater risk for tripping, falling, or bumping into things. ??? Wear sunglasses and a hat if you are sensitive to bright light or are having problems with glare. ??? Quit smoking if you smoke. If you need help quitting, talk with your health care provider. General instructions ??? If you are prescribed new eyeglasses, wear them as told by your health care provider. ??? Take mxok-ecn-swsorel and prescription medicines only as told by your health care provider. Do not change your medicines unless told by your health care provider. ??? Do notdrive or operate heavy machinery if your vision is blurry, particularly at night. ??? Keep your blood sugar under control, if you have diabetes. ??? Keep all follow-up visits as told by your health care provider. This is important. Contact a health care provider if: ??? Your symptoms get worse. ??? Your vision affects your ability to perform daily activities. ??? You have new symptoms. ??? You have a fever. Get help right away if: ??? You have sudden vision loss. ??? You have redness, swelling, or increasing pain in your eye. ??? You develop a headache and sensitivity to light. This information is not intended to replace advice given to you by your health care provider. Make sure you discuss any questions you have with your health care provider. Document Released: 02/16/2006 Document Revised: 06/26/2016 Document Reviewed: 08/22/2015 [employer]) Interactive Patient Education ? 2017 [employer] documented in this encounter Plan of Treatment Not on file documented as of this encounter Visit Diagnoses Not on filedocumented in this encounter
--- OUTSIDE RECORDS SUMMARY | 2024-12-28 13:35 | XMS_ITS | Clinical Summary ---
Author Organization [facility] Address [address] [place] [address] Care Team Providers Care Adapted Physical Education Teacher Name Role Phone Unavailable Primary Care Provider Unavailabl e Social History Tobacco Use Types Packs/Day Years Used Date Smoking Tobacco: Never Assessed Abuse Screen Answer Date Recorded Unsafe at Home or Work/School Not on file Feels Threatened by Someone? Not on file 10/2022 Does Anyone Keep You from Co ntacting Others or Doint Things Outside the Home? Not on file 12/08/2022 Physical Sign of Abuse Present Not on file 1 Housing Stability Answer Date Recorded Current Living Arrangements Not on file 10/2022 Potentially Unsafe Housing Conditions Not on vasyl e 12/08/2022 Family and Community Support Answer Tc e Recorded Help with Day-to-Day Activities Not on file 12/08/2022 Lonely or Isolated Not on file 12/08/2022 Employment Answer Date Recorded Do you want help finding or keeping work or a mihcael b? Not on file 12/08/2022 Disabilities Answer Date Recorded Concentrating, Remembering, or Making Decisions Difficulty Not on file 12/08/2022 Doing Errands Independently Difficulty Not on fi le 12/08/2022 Education Answer Date Recorded Help with school or training? Not on file Preferred Language Not on file 12/08/2022 Comments Unknown Sex and Gender Information Value Date Recorded Sex Assigned at Not on file Legal Sex Female 1:03 PM EDT Gender Identity Not on file Sexual Orientation Not on file Last Filed Vital Signs Vital Sign Reading Time Taken Comments Blood Pressure 114/62 04/05/2014 9:08 AM EST Pulse 107 04/05/2014 9:08 AM EST Temperature - - Respiratory Rate 20 04/05/2014 9:08 AM EST Oxygen Saturation - - Inhaled Oxygen Concentration - - Weight 76.7 kg (169 lb 0.1 oz) 04/05/2014 9:08 A M EST Height 152.4 cm (5') 04/05/2014 9:08 AM EST Body Mass Index 33.01 04/05/2014 9:08 AM EST Plan of Treatment Health Maintenance Due Date Last Done Comments ANNUAL PHYSICAL 1965 Annual Gynecologic Pelvic and Breast Exam 1965 HEPATITIS C SCREENING 1965 TDAP/TD VACCINES (1 - Tdap) 06/08/1986 MAMMOGRAM 2007 COLOGUARD 06/08/2012 COLON CANCER SCREENING 5 YEAR SIGMOIDOSCOPY 06/08/2012 COLONOSCOPY 06/08/2012 COLORECTAL CANCER SCREENING 06/08/2012 CT COLONOGRAPHY 06/08/2012 FECAL OCCULT BLOOD TEST 06/08/2012 FIT Testing (1 year) 06/08/2012 Pneumococcal Vaccine 50+ (1 of 1 - PCV) 06/08/2017 ZOSTER VACCINE (1 of 2) 06/08/2017 INFLUENZA VACCINE 09/30/2024
--- OUTSIDE RECORDS SUMMARY | 2024-12-28 13:35 | XMS_ITS | Encounter Summary ---
Author Organization [facility] Address [address] [id number] Care Team Providers Care Wire Temperer Name Role Phone Ceci Couch APRN Primary Care Provider [phone] Jed Toribio MD Unavailable [phone] Ceci Aguilar Unavailable [phone] Nadir John MD Unavailable [phone] Ceci Aguilar Unavailable [phone] Nadir John MD Unavailable [phone] Encounter Details Date Type Department Care Team (Latest Contact Info) Description 11/22/2024 Travel Social History Tobacco Use Types Packs/Day Years [...] often do you attend chur ch or denominational services? Never 08/14/2023 Do you belong to any clubs o r organizations such as advent groups, unions, fraternal or athletic groups, or [...] Recorded Patient Health Questionnaire-2 Score 6 06/10/2024 [facility] - Occupational Stress Questionnaire Answer Date [...] any time in the past 12 m [facility], were you homeless or living in a jail (including now)? No 10/10/2024 Safety and Environment [...] Description 01/04/2025 3:20 PM EST Office Visit [facility] Orthopaedic Surgery & Sports Medicine [address] [place] [address] Nadir John MD [address] [place] [address] documented as of this encounter Goals Goal Patient Goal Type Associated Problems Recent Progress Patient-Stated? Author Autogenerat ed Goal Care Plan Autogenerated Problem No Amelia Ortega documented as of this encounter Visit Diagnoses [...] documented as of this encounter Care Teams Wire Temperer Relationship Specialty Start Date End Date Ceci Couch APRN [address] [place] [address] PCP - General 07/13/20 Jed Toribio MD [address] [place] [address] Surgeon Neurosurgery 10/02/20 Ceci Aguilar PA [address] [place] [address] Physician Inspector Air Carrier Neurosurgery 10/24/20 Nadir John MD [address] [place] [address] Surgeon Neurosurgery 11/19/20 Ceci Aguilar PA [address] [place] [address] Physician Inspector Air Carrier Neurosurgery 02/13/21 Nadir John MD [address] [place] [address] Surgeon Neurosurgery 04/29/21 documented as of this encounter
--- OUTSIDE RECORDS SUMMARY | 2024-12-28 13:35 | XMS_ITS | Encounter Summary ---
Author Organization [facility] Address [address] [place] [address] Care Team Providers Care Kiln Firer Name Role Phone Ceci Couch APRN Primary Care Provider [phone] Jed Toribio MD Unavailable [phone] Ceci Aguilar Unavailable [phone] Myles Henriquez MD Unavailable [phone] Nadir John MD Unavailable [phone] Ceci Aguilar Unavailable [phone] Nadir John MD Unavailable [phone] Jade Pack LPN Unavailable Unavailable Encounter Details Date Type Department Care Team (Late st Contact Info) Description 10/15/2023 Outside Procedure External Location [address] [place] [phone] Provider, Marce Madison Social History Tobacco Use Types Packs/Day Years [...] week 08/14/2023 How often do you attend [facility] or synagogue services? Never 08/14/2023 Do you belong to any clubs o r organizations such as jain groups, unions, fraternal or athletic groups, or [...] Recorded Patient Health Questionnaire-2 Score 0 08/18/2023 [facility]ational [facility] Questionnaire Answer [...] place to sleep or slept in a mcc (including now)? No 08/18/2023 PHQ-9 Answer Date [...] Description 01/04/2025 3:20 PM EST Office Visit [facility] Orthopaedic Surgery & Sports Medicine [address] [place] [address] Nadir John MD [address] [place] [address] documented as of this encounter Procedures Procedure Name Priority Date/Time Associated Diagnosis Comments CT HEAD WO IV CONTRAST 10/15/2023 4:45 PM EDT documented in this encounter Results * CT Head wo IV Contrast (10/15/2023 4:45 PM EDT) Anatomical Region Laterality Modality Head Computed Tomogra phy 10/15/2023 4:45 PM EDT Narrative 10/15/2023 5:23 PM EDT [address] [place] [address] Name: MARGA BRONSON Exam Date: 10/15/2023 : 1965 Age 58 years Gender: F Physician: GWENDOLYN WISE Facility: [facility] Facility HSV: Outpatient Exam: CT BRAIN W/O FINAL REPORT TECHNIQUE: null CLINICAL HISTORY: Headache COMPARISON: null FINDINGS: CT head without contrast Comparison: None Findings: No intra-axial mass, midline shift, hydrocephalus, or acute hemorrhage. No significant atrophy-like change or white matter disease. The visualized paranasal sinuses and mastoid air cells are normal. The orbits are unremarkable. There is no acute fracture. IMPRESSION: IMPRESSION: 1. No acute intracranial findings Authenticated and EASTERN Dictated By: Jeannie Hutton Transcribed By: Transcribed On: 10/15/2023 5:21 PM Electronically signed by: Jeannie Hutton 10/15/2023 Thank you for referring MARGA BRONSON to [facility]. Legally authenticated by LEYLA CERVANTES 2023-10-15 17:21:12 Procedure Note Provider, Marce Madison - 10/15/2023 [facility] [address] [place] [address] Name: MARGA BRONSON Exam Date: 10/15/2023 : 1965 Age 58 years Gender: F Physician: GWENDOLYN WISE Facility: [facility] Facility HSV: Outpatient Exam: CT BRAIN W/O FINAL REPORT TECHNIQUE: null CLINICAL HISTORY: Headache COMPARISON: null FINDINGS: CT head without contrast Comparison: None Findings: No intra-axial mass, midline shift, hydrocephalus, or acute hemorrhage. No significant atrophy-like change or white matter disease. The visualized paranasal sinuses and mastoid air cells are normal. The orbits are unremarkable. There is no acute fracture. IMPRESSION: IMPRESSION: 1. No acute intracranial findings Authenticated and EASTERN Dictated By: Jeannie Hutton Transcribed By: Transcribed On: 10/15/2023 5:21 PM Electronically signed by: Jeannie Hutton 10/15/2023 Thank you for referring MARGA BRONSON to [facility]. Legally authenticated by LEYLA CERVANTES 2023-10-15 17:21:12 Generic Madison Provider IMG CT PROCEDURES Fi nal Result documented in this encounter Visit Diagnoses Not on filedocumented in this encounter Additional Health Concerns Assessment Noted Time PHQ-9 Depression Total Score: 20 024 9:31 AM EST A fall risk assessment has been complete d for the patient 03/06/2023 9:34 AM EST A Body Mass Index follow-up plan has been documented for the patient 08/18/2023 11:37 AM EDT documented as of this encounter Care Teams Kiln Firer Relationship Specialty Start Date End Date Ceci Couch APRN [facility] [place] [address] PCP - General 07/13/20 Jed Toribio MD [address] [place] [address] Surgeon Neurosurgery 10/02/20 Ceci Aguilar PA [address] [place] [address] Physician Retirement Plan Specialist Neurosurgery 10/24/20 Myles Henriquez MD [address] [place] [phone] Consulting Physician Radiation Therapy 11/02/20 Nadir John MD [address] [place] [address] Surgeon Neurosurgery 11/19/20 Ceci Aguilar PA [address] [place] [phone] Physician Retirement Plan Specialist Neurosurgery 02/13/21 Nadir John MD [address] [place] [phone] Surgeon Neurosurgery 04/29/21 Jade Pakc LPN VALUE-BASED [place] [address] TCM Nurse 06/07/24 07/07/24 documented as of this encounter
--- OUTSIDE RECORDS SUMMARY | 2024-12-28 13:35 | XMS_ITS | Encounter Summary ---
Author Organization Healthcare Address [address] [place] [address] Care Team Providers Care Supervisor Intelligence Analyst Name Role Phone Ceci Couch APRN Primary Care Provider [phone] Jed Toribio MD Unavailable [phone] Ceci Aguilar Unavailable [phone] Nadir John MD Unavailable [phone] Ceci Aguilar Unavailable [phone] Nadir John MD Unavailable [phone] Encounter Details Date Type Department Care Team (Late st Contact Info) Description 11/09/2024 [facility]phone [facility] [address] [place] [phone] [facility], Physician, [address] [place], [place] [id number] Social History Tobacco Use Types Packs/Day Years [...] How often do you attend chur or zoroastrianism services? Never 08/14/2023 Do you belong to any clubs o r organizations such as jehovah's witness groups, unions, fraternal or athletic groups, or [...] Recorded Patient Health Questionnaire-2 Score 6 06/10/20[facility]ational [facility] Questionnaire Answer Date Recorded [...] any time in the past 12 m [facility], were you homeless or living in a long-term (including now)? No 10/10/2024 Safety and Environment [...] Description 01/04/2025 3:20 PM EST Office Visit [facility] Orthopaedic Surgery & Sports Medicine [address] [place] [address] Nadir John MD [address] [place] [address] documented as of this encounter [...] has been complete d for the patient 10/25/2024 12:27 PM EDT A Body Mass Index follow-up plan has been documented for the patient 10/26/2024 8:09 AM EDT documented as of this encounter Care Teams Supervisor Intelligence Analyst Relationship Specialty Start Date End Date Ceci Couch APRN [address] [place] [address] PCP - General 07/13/20 Jed Toribio MD [address] [place] [address] Surgeon Neurosurgery 10/02/20 Ceci Aguilar PA [address] [place] [address] Physician Planning Assistant Neurosurgery 10/24/20 Nadir John MD [address] [place] [address] Surgeon Neurosurgery 11/19/20 Ceci Aguilar PA [address] [place] [address] Physician Planning Assistant Neurosurgery 02/13/21 Nadir John MD [address] [place] [address] Surgeon Neurosurgery 04/29/21 documented as of this encounter
--- OUTSIDE RECORDS SUMMARY | 2024-12-28 13:35 | XMS_ITS | Encounter Summary ---
Author Organization [facility] Address [address] [id number] Care Team Providers Care Croze Cutter Name Role Phone Ceci Couch APRN Primary Care Provider Jed Toribio MD Unavailable Ceci Aguilar Unavailable [phone] Nadir John MD Unavailable [phone] Ceci Aguilar Unavailable [phone] Nadir John MD Unavailable [phone] Reason for Visit * Reason Comments Med Refill Encounter Details Date Type Department Care Team (Late st Contact Info) Description 11/10/2024 Refill [facility] [address] [place] [address] Ceci Couch APRN [address] [place] [address] Other depression Social History Tobacco Use Types Packs/Day Years [...] How often do you attend chur or baptism services? Never 08/14/2023 Do you belong to any clubs o r organizations such as anabaptist groups, unions, fraternal or athletic groups, or [...] Recorded Patient Health Questionnaire-2 Score 6 06/10/2024 [facility] - Occupational Stress Questionnaire [...] any time in the past 12 m [facility], were you homeless or living in [...] encounter Miscellaneous Notes * Telephone Encounter - Esvin Starkey PharmD - 11/15/2024 12:05 PM EDT 1 medication(s) has been approved per protocol. documented in this encounter Plan of Treatment Upcoming Encounters Date Type Department Care Team (Late st Contact Info) Description 01/04/2025 3:20 PM EST Office Visit [facility] Orthopaedic Surgery & Sports Medicine [address] [place] [address] Nadir John MD [address] [place] [address] documented as of this encounter Goals Goal Patient Goal Type Associated Problems Recent Progress Patient-Stated? Author Autogenerat ed Goal Care Plan Autogenerated Problem No Jordan, My T documented as of this encounter Visit Diagnoses Diagnosis Other depression documented in this encounter Additional Health Concerns [...] documented as of this encounter Care Teams Croze Cutter Relationship Specialty Start Date End Date Ceci Couch APRN [address] [place] [address] PCP - General 07/13/20 Jed Toribio MD [address] [place] [address] Surgeon Neurosurgery 10/02/20 Ceci Aguilar PA [address] [place] [address] Physician Biometrics Head Neurosurgery 10/24/20 Nadir John MD [address] [place] [address] Surgeon Neurosurgery 11/19/20 Ceci Aguilar PA [address] [place] [address] Physician Biometrics Head Neurosurgery 02/13/21 Nadir John MD [address] [place] [address] Surgeon Neurosurgery 04/29/21 documented as of this encounter
--- OUTSIDE RECORDS SUMMARY | 2024-12-28 13:35 | XMS_ITS | Encounter Summary ---
Author Organization [facility] Address [address] [id number] Care Team Providers Care Interior Systems Carpenter Name Role Phone Ceci Couch BEESWAX BLEACHER Primary Care Provider [phone] Jed Toribio MD Unavailable Ceci Aguilar Unavailable [phone] Myles Henriquez MD Unavailable [phone] Nadir John MD Unavailable [phone] Ceci Aguilar Unavailable [phone] Nadir John MD Unavailable [phone] Rosa Chaney MANAGER TECHNICAL Unavailable Unavailab Jade Murillo MANAGER TECHNICAL Unavailable Unavailable Reason for Visit * Reason Comments Med Refill Encounter Details Date Type Department Care Team (Late st Contact Info) Description 06/30/2022 [facility] [address] [place] [address] Ceci Couch APRN [address] [place] [address] Social History Tobacco Use Types Packs/Day Years Used Date Smoking Tobacco: Former Cigarettes 1 40 0 04/1980 - 04/2020 Smokeless Tobacco: Never Alcohol Use Standard Drinks/Week Comments Never 0 (1 standard drink = 0.6 oz pur e alcohol) PHQ-2 Answer Date Recorded Patient Health Questionnaire-2 Score 0 12/03/2020 Comments No Sex and Gender Information Value Date Recorded Sex Assigned at Female 01/30/2021 12:26 PM EST Legal Sex Female 8:17 PM EDT Gender Identity Female 01/30/2021 12:26 PM EST Sexual Orientation Not on file documented as of this encounter Plan of Treatment Upcoming Encounters Date Type Department Care Team (Late st Contact Info) Description 01/04/2025 3:20 PM EST Office Visit [facility] Orth[facility] Surgery & Sports Medicine [address] [place] [address] Nadir John MD [address] [place] [address] documented as of this encounter Visit Diagnoses Not on filedocumented in this encounter Additional Health Concerns Assessment Noted Time PHQ-9 Depression Total Score: 17 021 11:02 AM EDT A fall risk assessment has been complete d for the patient 03/24/2022 2:52 PM EST A Body Mass Index follow-up plan has been documented for the patient 03/25/2022 12:05 PM EST documented as of this encounter Care Teams Interior Systems Carpenter Relationship Specialty Start Date End Date Ceci Couch APRN [address] [place] [phone] PCP - General 07/13/20 Jed Toribio MD [address] [place] [address] Surgeon Neurosurgery 10/02/20 Ceci Aguilar PA [address] [place] [address] Physician Quantitative Analyst Developer Neurosurgery 10/24/20 Myles Henriquez MD [address] [place] [address] Consulting Physician Radiation Therapy 11/02/20 Nadir John MD [address] [facility] [address] [place] [address] Surgeon Neurosurgery 11/19/20 Ceci Aguilar PA [address] [place] [address] Physician Quantitative Analyst Developer Neurosurgery 02/13/21 Nadir John MD [address] [facility] [address] [place] [address] Surgeon Neurosurgery 04/29/21 Rosa Chaney LPN VALUE-BASED TRANSFORMATION PROGRAM Licensed Practical Nurse 08/13/23 09/17/23 Jade Pack LPN VALUE-[employer]ED [place] [address] TCM Nurse 06/07/24 07/07/24 documented as of this encounter
--- OUTSIDE RECORDS SUMMARY | 2024-12-28 13:35 | XMS_ITS | Encounter Summary ---
Author Organization [facility] Address [address] [id number] Care Team Providers Care Acquisition Marketing Coordinator Name Role Phone Ceci Couch PROPELLER MECHANIC Primary Care Provider [phone] Jed Toribio MD Unavailable Ceci Aguilar Unavailable [phone] Myles Henriquez MD Unavailable [phone] Nadir John MD Unavailable [phone] Ceci Aguilar Unavailable [phone] Nadir John MD Unavailable [phone] Rosa Chaney ASPNET DEVELOPER Unavailable Unavailab Jade Murillo ASPNET DEVELOPER Unavailable Unavailable Reason for Visit * Reason Comments Med Refill Encounter Details Date Type Department Care Team (Late st Contact Info) Description 10/22/2020 Refill [facility] [address] [place] [address] Ceci Couch APRN [address] [place] [address] Social History Tobacco Use Types Packs/Day Years Used Date Smoking Tobacco: Every Day Cigarettes Smokeless Tobacco: Never Alcohol Use Standard Drinks/Week Comments No 0 (1 standard drink = 0.6 oz pure alcohol) Alcoholic Drinks/day: No history of alcohol use PHQ-2 Answer Date Recorded Patient Health Questionnaire-2 Score 5 10/25/2020 Comments Unknown Sex and Gender Information Value Date Recorded Sex Assigned at Female 01/30/2021 12:26 PM EST Legal Sex Female 8:17 PM EDT Gender Identity Female 01/30/2021 12:26 PM EST Sexual Orientation Not on file COVID-19 Exposure Response Date Recorded In the last month, have you been in contact with someone who was confirmed or suspected to have Coronavirus / COVID-19? No / Unsure 10/24/2020 12:53 PM EDT documented as of this encounter Functional Status * Over the past 2 weeks, how often have you been bothered by any of the following problems? Question Answer Date of Assessment Author Little interest or pleasure in doing things Nearly every day 10/25/2020 11:02 AM Shaunna Redmond Feeling down, depressed, or hopeless More than half the days 10/25/2020 11:02 AM Miya Redmond Patient Health Questionnaire-2 Score 5 10/25/2020 11:02 AM Miya Redmond * Question Answer Date of Assessment Author Trouble falling or staying asleep, or sleeping too much More than half the days 10/25/2020 11:02 AM Miya Redmond Feeling tired or having little energy Nearly every day 10/25/2020 11:02 AM Miya Redmond Poor appetite or overeating Nearly every day 11:02 AM Miya Redmond Feeling bad about yourself - or that you are a failure or have let yourself or your family down More than half the days 10/25/2020 11:02 AM Miya Redmond Trouble concentrating on things, such as reading the newspaper or watching television More than half the days 10/25/2020 11:02 AM Miya Redmond Moving or speaking so slowly that other people could have noticed? Or the opposite - being so fidgety or restless that you have been moving around a lot more than usual. Not at all 10/25/2020 11:02 AM Miya Redmond Thoughts that you would be better off or hurting yourself in some way Not at all 10/25/2020 11:02 AM EDT Miya Jones Patient Health Questionnaire-9 Score 17 10/25/2020 11:02 AM EDT Miya Jones * Calculated C-SSRS Risk Score (Lifetime/Recent) Answer Date of Assessment Author No Risk Indicated 10/25/2020 11:06 AM EDT Miya Guzman * Question Answer Date of Assessment Author 1. Wish to be (Past 1 Month) No 021 11:06 AM EDT Miya Jones 2. Non-Specific Active Suici navi Thoughts (Past 1 Month) No 10/25/2020 11:06 AM EDT Mariella Jones 6. Suicidal Behavior (Lifetime) No 11:06 AM EDT Miya Jones documented as of this encounter Plan of Treatment Upcoming Encounters Date Type Department Care Team (Late st Contact Info) Description 01/04/2025 3:20 PM EST Office Visit [facility] Orthopaedic Surgery & Sports Medicine [address], [address] [address] Nadir John MD [address] [facility] [address] documented as of this encounter Visit Diagnoses Not on filedocumented in this encounter Additional Health Concerns Assessment Noted Time A fall risk assessment has been complete d for the patient 10/02/2020 3:46 PM EDT documented as of this encounter Care Teams Acquisition Marketing Coordinator Relationship Specialty Start Date End Date Ceci Couch APRN [address] [place] [address] PCP - General 07/13/20 Jed Toribio MD [address] [address] Surgeon Neurosurgery 10/02/20 Ceci Aguilar PA [address] [address] Physician Alarm Field Technician Neurosurgery 10/24/20 Myles Henriquez MD [address] [address] Consulting Physician Radiation Therapy 11/02/20 Nadir John MD [address] [address] Surgeon Neurosurgery 11/19/20 Ceci Aguilar PA [address] [address] Physician Alarm Field Technician Neurosurgery 02/13/21 Nadir John MD [address] [address] Surgeon Neurosurgery 04/29/21 Rosa Chaney LPN VALUE-BASED TRANSFORMATION PROGRAM Licensed Practical Nurse 08/13/23 09/17/23 Jade Pack LPN VALUE-BASED TRANSFORMATION PROGRAM [address] TCM Nurse 06/07/24 07/07/24 documented as of this encounter
--- OUTSIDE RECORDS SUMMARY | 2024-12-28 13:35 | XMS_ITS | Encounter Summary ---
Author Organization [employer] ([place], [place], [place], [place]) Address [address] [place] [address] Care Team Providers Care In Home Baby Sitter Name Role Phone Unavailable Primary Care Provider Unavailabl e Encounter Details Date Type Department Care Team (Late st Contact Info) Description 06/29/2018 Transcribed Document [facility] [address] [place] [address] ProviderZe MD [address] [place] [address] Social History Tobacco Use Types Packs/Day Years Used Date Smoking Tobacco: Never Assessed Comments Unknown Sex and Gender Information Value Date Recorded Sex Assigned at Female 08/27/2021 7:27 PM CDT Legal Sex Female 7:27 PM CDT Gender Identity Female 08/27/2021 7:27 PM CDT Sexual Orientation Not on file documented as of this encounter Miscellaneous Notes * Cerner Conversion Note - Ze ProviderMD - 06/29/2018 11:09 AM CDT [facility] Main OR PostOp Summary Primary Physician: AKIL CARTAGENA MD-OPT Finalized Date/Time: 06/29/18 11:57:34 Pt. Name: AILYN LANDAVERDERA Gonzalez /Sex: 1965 Female Med Rec #: [id number] Physician: AKIL CARTAGENA MD-OPT Financial #: [id number] Pt. Type: O Room/Bed: Admit/Disch: 06/29/18 08:20:00 - Institution: [facility] [place] PostOp Case Times Entry 1 In PACU II 06/29/18 11:35:00 Ready for PACU II 06/29/18 11:53:00 Discharge Discharge from PACU 06/29/18 11:53:00 II Last Modified By: Marlene Green Rn 06/29/18 11:57:29 Finalized By: Marlene Green, Rn Document Signatures Signed By: Marlene Green Rn 06/29/18 11:57 Electronically signed by Han[facility] Conversion Net Programmer Cerner at 06/16/2022 11:52 AM CDT documented in this encounter Plan of Treatment Not on file documented as of this encounter Visit Diagnoses Not on filedocumented in this encounter
--- OUTSIDE RECORDS SUMMARY | 2024-12-28 13:35 | XMS_ITS | Encounter Summary ---
Author Organization [facility] Address [address] [id number] Care Team Providers Care Rn Utilization Management Um Name Role Phone Ceci Couch SUPERVISOR CELL MAINTENANCE Primary Care Provider [phone] Jed Toribio MD Unavailable Ceci Aguilar Unavailable [phone] Myles Henriquez MD Unavailable [phone] Nadir John MD Unavailable [phone] Ceci Aguilar Unavailable [phone] Nadir John MD Unavailable [phone] Rosa Chaney ELECTRONICS HARDWARE DESIGN ENGINEER Unavailable Unavailab Jade Murillo ELECTRONICS HARDWARE DESIGN ENGINEER Unavailable Unavailable Reason for Visit * Reason Comments Med Refill Encounter Details Date Type Department Care Team (Late st Contact Info) Description 05/24/2021 Refill [facility] [address] [place] [address] Ceci Couch APRN [address] [place] [address] Chronic GERD Social History Tobacco Use Types Packs/Day Years [...] have Coronavirus / COVID-19? No / Unsure 05/22/2021 2:57 PM EDT documented as of this encounter Miscellaneous Notes * Telephone Encounter - [place] - 05/27/2021 3:00 PM EDT Refill request does not meet protocol. Sending to clinic for review. Additional info: Prveious rx has end date in computer. Please refill if appropriate documented in this encounter Plan of Treatment Upcoming Encounters Date Type Department Care Team (Late st Contact Info) Description 01/04/2025 3:20 PM EST Office Visit [facility] Orthopaedic Surgery & Sports Medicine [address] [place] [address] Nadir John MD [id number] [place] [address] documented as of this encounter Visit Diagnoses Diagnosis Chronic GERD documented in this encounter Additional Health Concerns Assessment Noted Time PHQ-9 Depression Total Score: 17 021 11:02 AM EDT A fall risk assessment has been complete d for the patient 05/22/2021 3:21 PM EDT documented as of this encounter Care Teams Rn Utilization Management Um Relationship Specialty Start Date End Date Ceci Couch APRN [address] [place] [address] PCP - General 07/13/20 Jed Toribio MD [phone] [place] [address] Surgeon Neurosurgery 10/02/20 Ceci Aguilar PA [address] [place] [address] Physician Renewal Specialist Neurosurgery 10/24/20 Myles Henriquez MD [address] [place] [address] Consulting Physician Radiation Therapy 11/02/20 Nadir John MD [address] [place] [address] Surgeon Neurosurgery 11/19/20 Ceci Aguilar PA [address] [place] [address] Physician Renewal Specialist Neurosurgery 02/13/21 Nadir John MD [address] [place] [address] Surgeon Neurosurgery 04/29/21 Rosa Chaney LPN VALUE-BASED TRANSFORMATION PROGRAM Licensed Practical Nurse 08/13/23 09/17/23 Jade Pack LPN VALUE-BASED [place] [address] TCM Nurse 06/07/24 07/07/24 documented as of this encounter
--- OUTSIDE RECORDS SUMMARY | 2024-12-28 13:35 | XMS_ITS | Encounter Summary ---
Author Organization [facility] Address [address] [place] [address] Care Team Providers Care Valet Parker Name Role Phone Ceci Couch APRN Primary Care Provider [phone] Jed Toribio MD Unavailable [phone] Ceci Aguilar Unavailable [phone] Myles Henriquez MD Unavailable [phone] Nadir John MD Unavailable [phone] Ceci Aguilar Unavailable [phone] Nadir John MD Unavailable [phone] Jade Pack LPN Unavailable Unavailable Encounter Details Date Type Department Care Team (Late st Contact Info) Description 10/15/2023 Outside Procedure External Location [address] [place] [id number] Provider, Marce [place] Social History Tobacco Use Types Packs/Day Years [...] week 08/14/2023 How often do you attend [facility] or [facility] services? Never 08/14/2023 Do you belong to any clubs o r organizations such as judaism groups, unions, fraternal or athletic groups, or [...] Recorded Patient Health Questionnaire-2 Score 0 08/18/2023 [facility] - Occupational Stress Questionnaire [...] place to sleep or slept in a longterm (including now)? No 08/18/2023 PHQ-9 Answer Date [...] Description 01/04/2025 3:20 PM EST Office Visit [facility] Orthopaedic Surgery & Sports Medicine [address] [place] [address] Nadir John MD [address] [place] [address] documented as of this encounter Procedures Procedure Name Priority Date/Time Associated Diagnosis Comments CT CERVICAL SPINE WO IV CONTRAST 10/15/2023 4:45 PM EDT documented in this encounter Results * CT Cervical Spine wo IV Contrast (10/15/2023 4:45 PM EDT) Anatomical Region Laterality Modality Spine, C-spine Computed Tomogra phy 10/15/2023 4:45 PM EDT Narrative 10/15/2023 5:27 PM EDT [address] [address] Name: MARGA BRONSON Exam Date: 10/15/2023 : 1965 Age 58 years Gender: F Physician: GWENDOLYN WISE Facility: [facility] Facility HSV: Outpatient Exam: CT CERVICAL SPINE W/O FINAL REPORT TECHNIQUE: null CLINICAL HISTORY: Pain with Trauma/Injury COMPARISON: null FINDINGS: CT cervical spine without contrast Comparison: None Findings: No acute findings on limited view of the intracranial contents. No cervical fluid collections or masses. There is moderate mucosal thickening within the right posterior ethmoid air cells. Complete opacification of the right sphenoid sinus. Anterior fusion at C4-C7. Lung apices are clear. Normal vertebral body alignment. No acute fractures or dislocations. No significant degenerative change. IMPRESSION: IMPRESSION: 1. No acute findings. 2. Postsurgical sequelae. 3. Sinus disease. Authenticated and [facility] Dictated By: Jeannie Hutton Transcribed By: Transcribed On: 10/15/2023 5:25 PM Electronically signed by: Jeannie Hutton 10/15/2023 Thank you for referring MARGA BRONSON to [facility]. Legally authenticated by LEYLA CERVANTES 2023-10-15 17:25:33 Procedure Note Provider, Marce [place] - 10/15/[address] [place] [address] Name: MARGA BRONSON Exam Date: 10/15/2023 : 1965 Age 58 years Gender: F Physician: GWENDOLYN WISE Facility: [facility] Facility HSV: Outpatient Exam: CT CERVICAL SPINE W/O FINAL REPORT TECHNIQUE: null CLINICAL HISTORY: Pain with Trauma/Injury COMPARISON: null FINDINGS: CT cervical spine without contrast Comparison: None Findings: No acute findings on limited view of the intracranial contents. No cervical fluid collections or masses. There is moderate mucosal thickening within the right posterior ethmoid air cells. Complete opacification of the right sphenoid sinus. Anterior fusion at C4-C7. Lung apices are clear. Normal vertebral body alignment. No acute fractures or dislocations. No significant degenerative change. IMPRESSION: IMPRESSION: 1. No acute findings. 2. Postsurgical sequelae. 3. Sinus disease. Authenticated and [facility] Dictated By: Jeannie Hutton Transcribed By: Transcribed On: 10/15/2023 5:25 PM Electronically signed by: Jeannie Hutton 10/15/2023 Thank you for referring MARGA BRONSON to [facility]. Legally authenticated by LEYLA CERVANTES 2023-10-15 17:25:33 Generic [place] Provider IMG CT PROCEDURES Fi nal Result [...] documented as of this encounter Care Teams Valet Parker Relationship Specialty Start Date End Date Ceci Couch APRN [address] [place] [address] PCP - General 07/13/20 Jed Toribio MD [address] [place] [address] Surgeon Neurosurgery 10/02/20 Ceci Aguilar PA [address] [place] [address] Physician Soft Hat Binder Neurosurgery 10/24/20 Myles Henriquez MD [address] [place] [address] Consulting Physician Radiation Therapy 11/02/20 Nadir John MD [address] [place] [address] Surgeon Neurosurgery 11/19/20 Ceci Aguilar PA [address] [place] [address] Physician Soft Hat Binder Neurosurgery 02/13/21 Nadir John MD [address] [place] [address] Surgeon Neurosurgery 04/29/21 Jade Pack LPN VALUE-BASED [place] [address] TCM Nurse 06/07/24 07/07/24 documented as of this encounter
--- OUTSIDE RECORDS SUMMARY | 2024-12-28 13:35 | XMS_ITS | Clinical Summary ---
Author Organization [employer] ([place], [place], [place], [place]) Address [address] [place] [address] Care Team Providers Care Expediter Service Order Name Role Phone Unavailable Primary Care Provider Unavailabl e Social History Tobacco Use Types Packs/Day Years Used Date Smoking Tobacco: Never Assessed Comments Unknown Sex and Gender Information Value Date Recorded Sex Assigned at Female 08/27/2021 7:27 PM CDT Legal Sex Female 7:27 PM CDT Gender Identity Female 08/27/2021 7:27 PM CDT Sexual Orientation Not on file Plan of Treatment Not on file
--- OUTSIDE RECORDS SUMMARY | 2024-12-28 13:35 | XMS_ITS | Encounter Summary ---
Author Organization [employer] ([place], [place], [place], [place]) Address [address] [place] [address] Care Team Providers Care Irrigationist Name Role Phone Unavailable Primary Care Provider Unavailabl e Encounter Details Date Type Department Care Team (Late st Contact Info) Description 06/29/2018 Transcribed Document [facility] Family Medicine [facility] [address] ProviderZe MD [address] [place] [address] Social History Tobacco Use Types Packs/Day Years Used Date Smoking Tobacco: Never Assessed Comments Unknown Sex and Gender Information Value Date Recorded Sex Assigned at Female 08/27/2021 7:27 PM CDT Legal Sex Female 7:27 PM CDT Gender Identity Female 08/27/2021 7:27 PM CDT Sexual Orientation Not on file documented as of this encounter Miscellaneous Notes * Cerner Conversion Note - Historical ProviderMD - 06/29/2018 11:29 AM CDT DATE OF PROCEDURE: 06/29/2018 PREOPERATIVE DIAGNOSIS(ES): Dense cataract, right eye, H25.041. POSTOPERATIVE DIAGNOSIS(ES): Dense cataract, right eye, H25.041. PROCEDURE: Phacoemulsification with posterior chamber intraocular lens implant, right eye. SURGEON: Denny Hoskins MD ANESTHESIA: Topical. COMPLICATIONS: None. INDICATIONS FOR SURGERY: The patient is a healthy and active 53-year-old who has noted progressively deteriorating visual acuity in the right eye to its best corrected current level of 20/200. Examination revealed a visually significant cataract. Because of the dense cataract, the patient was admitted for phacoemulsification and posterior chamber intraocular lens implant, right eye. The risks, benefits, alternatives, indications, contraindications, expectations and complications have been fully explained to the patient and she wishes to proceed. OPERATIVE REPORT: While in the preoperative area, 4% nonpreserved lidocaine was applied topically to the eye. The patient was then wheeled into the operating room where the right eye was prepped and draped in the usual sterile fashion. A wire lid speculum was placed in the right eye. The microscope was set up for a temporal approach. Using the keratome blade, a limbal-corneal incision was made at the limbus, at the appropriate point. The anterior chamber was entered with the 15-blade for the secondary incision. Viscoelastic was instilled into the anterior chamber. The anterior capsulotomy was carried out in a capsulorrhexis fashion with the cystotome and Utrata forceps. Hydrodissection and hydrodelineation were carried out with the blunt 27-gauge cannula. The nucleus was then emulsified in a uptoua-kxy-qywoovg fashion. Following nuclear removal, the cortex was removed using the automated irrigating and aspirating device. Following cortical cleanup, an Maynor model [id number] +24.5 power posterior chamber intraocular lens was brought into the operative field, and inserted into the inserting device. The implant was placed into the posterior capsular bag. The viscoelastic was removed using the automated irrigating and aspirating device. BSS was instilled into the anterior chamber via the paracentesis to ensure that the limbal incision was watertight. Once it was assured incision was water-tight, the aqueous was replaced with Moxifloxacin 160 mcg/mL of BSS, and Durezol was applied topically to the eye. The patient tolerated the procedure well. There were no complications. Denny Hoskins M.D. Dict: 06/29/2018 11:29:12 Trans: 06/29/2018 13:21:43 CC1: Denny Hoskins M.D. documented in this encounter Plan of Treatment Not on file documented as of this encounter Visit Diagnoses Not on filedocumented in this encounter
--- OUTSIDE RECORDS SUMMARY | 2024-12-28 13:35 | XMS_ITS | Encounter Summary ---
Author Organization Healthcare Address [address] [place] [address] Care Team Providers Care Full Stack Python Developer Name Role Phone Ceci Couch APRN Primary Care Provider Jed Toribio MD Unavailable Ceci Aguilar Unavailable [phone] Nadir John MD Unavailable [phone] Ceci Aguilar Unavailable [phone] Nadir John MD Unavailable [phone] Encounter Details Date Type Department Care Team (Late st Contact Info) Description 12/13/2024 Refill [place] [facility] [address], [address] [place] [address] Ceci Aguilar PA [address] [place] [address] Status post lumbar spinal fusion (Primary Dx); S/P cervical spinal fusion Social History Tobacco Use Types Packs/Day Years [...] any clubs o r organizations such as presybeterian groups, unions, fraternal or athletic groups, or [...] Recorded Patient Health Questionnaire-2 Score 6 06/10/2024 [facility] - [facility]ational [facility] [...] any time in the past [address] [facility], were you homeless or living in a mcc (including now)? No 10/10/2024 Safety and Environment [...] encounter Miscellaneous Notes * Telephone Encounter - Delair, Ceci M, PA - 12/13/2024 1:26 PM EDT El request #: [id number] was reviewed and appropriate. Refill for oxycodone sent to the patient's pharmacy, pending Dr. John's authorization. Patient sees pain management on 12/22/2024. documented in this encounter Plan of Treatment Upcoming Encounters Date Type Department Care Team (Late st Contact Info) Description 01/04/2025 3:20 PM EST Office Visit [facility] Orthopaedic Surgery & Sports Medicine [address] [place] [address] Nadir John MD [address] [facility] [place] [address] documented as of this encounter Goals Goal Patient Goal Type Associated Problems Recent Progress Patient-Stated? Author Autogenerat ed Goal Care Plan Autogenerated Problem No Jordan, My T documented as of this encounter Visit Diagnoses Diagnosis Status post lumbar spinal fusion- Primary Arthrodesis status S/P cervical spinal fusion Arthrodesis status documented in this [...] documented as of this encounter Care Teams Full Stack Python Developer Relationship Specialty Start Date End Date Ceci Couch APRN [address] [place] [address] PCP - General 07/13/20 Jed Toribio MD [address] [place] [address] Surgeon Neurosurgery 10/02/20 Ceci Aguilar PA [address] [place] [address] Physician Storm Door Maker Neurosurgery 10/24/20 Nadir John MD [address] [place] [address] Surgeon Neurosurgery 11/19/20 Ceci Aguilar PA [address] [place] [address] Physician Storm Door Maker Neurosurgery 02/13/21 Nadir John MD [address] [place] [address] Surgeon Neurosurgery 04/29/21 documented as of this encounter
--- OUTSIDE RECORDS SUMMARY | 2024-12-28 13:35 | XMS_ITS | Encounter Summary ---
Author Organization Healthcare Address [address] [place] [address] Care Team Providers Care Services Mgr Name Role Phone Ceci Couch APRN Primary Care Provider Jed Toribio MD Unavailable [phone] Ceci Aguilar Unavailable [phone] Nadir John MD Unavailable [phone] Ceci Aguilar Unavailable [phone] Nadir John MD Unavailable [phone] Reason for Visit * Reason Onset Date Comments Med Refill 12/07/2024 Encounter Details Date Type Department Care Team (Late st Contact Info) Description 12/07/2024 Refill [place] [facility] [address], [address] [place] [address] Nadir John MD [address] [place] [address] Status post lumbar spinal fusion; S/P cervical spinal fusion Social History Tobacco [...] How often do you attend chur or baptist services? Never 08/14/2023 Do you belong to any clubs o r organizations such as mosque groups, unions, fraternal or athletic groups, or [...] Recorded Patient Health Questionnaire-2 Score 6 06/10/2024 [facility] ional Health - Occupational Stress [...] any time in the past 12 m [facility], were you homeless or living in a retirement (including now)? No 10/10/2024 Safety and Environment [...] encounter Miscellaneous Notes * Telephone Encounter - Nerissa Bangura APRN, DNP - 12/07/2024 11:15 AM EDT documented in this encounter Plan of Treatment Upcoming Encounters Date Type Department Care Team (Late st Contact Info) Description 01/04/2025 3:20 PM EST Office Visit [facility] Orthopaedic Surgery & Sports Medicine [address] [place] [address] Nadir John MD [address] [facility] [address] [place] [address] documented as of this encounter Goals Goal Patient Goal Type Associated Problems Recent Progress Patient-Stated? Author Autogenerat ed Goal Care Plan Autogenerated Problem No Jordan, My T documented as of this encounter Visit Diagnoses Diagnosis Status post lumbar spinal fusion Arthrodesis status S/P cervical spinal fusion Arthrodesis [...] documented as of this encounter Care Teams Services Mgr Relationship Specialty Start Date End Date Ceci Couch APRN [address] [place] [phone] PCP - General 07/13/20 Jed Toribio MD [address] [place] [address] Surgeon Neurosurgery 10/02/20 Ceci Aguilar PA [address] [place] [address] Physician Executive Asst Neurosurgery 10/24/20 Nadir John MD [address] [place] [address] Surgeon Neurosurgery 11/19/20 Ceci Aguilar PA [address] [place] [address] Physician Executive Asst Neurosurgery 02/13/21 Nadir John MD [address] [place] [address] Surgeon Neurosurgery 04/29/21 documented as of this encounter
--- OUTSIDE RECORDS SUMMARY | 2024-12-28 13:35 | XMS_ITS | Encounter Summary ---
Author Organization Healthcare Address [address] [place] [address] Care Team Providers Care Welder Journeyman Name Role Phone Ceci Couch APRN Primary Care Provider Jed Toribio MD Unavailable Ceci Aguilar Unavailable [phone] Nadir John MD Unavailable [phone] Ceci Aguilar Unavailable [phone] Nadir John MD Unavailable [phone] Encounter Details Date Type Department Care Team (Late st Contact Info) Description 11/04/2024 Refill [place] [facility] [address] [place] [address] Ceci Aguilar PA [address] [place] [address] Status post lumbar spinal fusion [...] How often do you attend chur or catholic services? Never 08/14/2023 Do you belong to any clubs o r organizations such as mandaen groups, unions, fraternal or athletic groups, or [...] Questionnaire-2 Score 6 06/10/2024 [facility] - Occupational Stress Questionnaire [...] any time in the past [address] [facility], were you homeless or living in a penitentiary (including now)? No 10/10/2024 Safety and Environment [...] Description 01/04/2025 3:20 PM EST Office Visit [facility] Orthopaedic Surgery & Sports Medicine [address] [place] [address] Nadir John MD [address] [place] [address] documented as of this encounter [...] documented as of this encounter Care Teams Welder Journeyman Relationship Specialty Start Date End Date Ceci Couch APRN [address] [place] [phone] PCP - General 07/13/20 Jed Toribio MD [address] [place] [address] Surgeon Neurosurgery 10/02/20 Ceci Aguilar PA [address] [place] [address] Physician Bus Starter Neurosurgery 10/24/20 Nadir John MD [address] [place] [address] Surgeon Neurosurgery 11/19/20 Ceci Aguilar PA [address] [place] [address] Physician Bus Starter Neurosurgery 02/13/21 Nadir John MD [address] [place] [address] Surgeon Neurosurgery 04/29/21 documented as of this encounter
--- OUTSIDE RECORDS SUMMARY | 2024-12-28 13:35 | XMS_ITS | Encounter Summary ---
Author Organization Healthcare Address [address] [place] [address] Care Team Providers Care Dredge Lever Operator Name Role Phone Ceci Couch APRN Primary Care Provider Jed Toribio MD Unavailable Ceci Aguilar Unavailable [phone] Nadir John MD Unavailable [phone] Ceci Aguilar Unavailable [phone] Nadir John MD Unavailable [phone] Reason for Visit * Reason Onset Date Comments Med Refill 12/07/2024 Encounter Details Date Type Department Care Team (Late st Contact Info) Description 12/07/2024 Refill [place] [facility] [address], [address] [place] [address] Nadir John MD [address] [place] [address] Social History Tobacco Use Types Packs/Day Years [...] week 08/14/2023 How often do you attend [facility] or buddhist services? Never 08/14/2023 Do you belong to any clubs o r organizations such as religious groups, unions, fraternal or athletic groups, or [...] Patient Health Questionnaire-2 Score 6 06/10/2024 [facility] - Occupational Stress Questionnaire Answer Date [...] any time in the past 12 m [facility], were you homeless or living in a detention (including now)? No 10/10/2024 Safety and Environment [...] - Delair, Ceci M, PA - 12/13/2024 1:28 PM EDT El request #: [id number] was reviewed and appropriate. Refill for oxycodone sent to the patient's pharmacy, pending Dr. John's authorization. Patient sees pain management on 12/22/2024. documented in this encounter Plan of Treatment Upcoming Encounters Date Type Department Care Team (Late st Contact Info) Description 01/04/2025 3:20 PM EST Office Visit [facility] Orthopaedic Surgery & Sports Medicine [address] [place] [address] Nadir John MD [id number] [place] [address] documented as of this encounter Goals Goal Patient Goal Type Associated Problems Recent Progress Patient-Stated? Author Autogenerat ed Goal Care Plan Autogenerated Problem No Jordan, My T documented as of this encounter Visit Diagnoses Not on filedocumented in this encounter Additional Health Concerns Active Problems Noted Date Diagnosed Date Autogenerated Problem 09/05/2024 Assessment Noted Time PHQ-9 Depression Total Score: 20 04 025 9:29 AM EDT A fall risk assessment has been complete d for the patient 11/22/2024 11:38 AM EDT A Body Mass Index follow-up plan has been documented for the patient 11/22/2024 9:23 PM EDT documented as of this encounter Care Teams Dredge Lever Operator Relationship Specialty Start Date End Date Ceci Couch APRN [address] [place] [address] PCP - General 07/13/20 Jed Toribio MD [address] [place] [address] Surgeon Neurosurgery 10/02/20 Ceci Aguilar PA [address] [place] [address] Physician Carbon Capture Power Plant Operator Neurosurgery 10/24/20 Nadir John MD [address] [place] [address] Surgeon Neurosurgery 11/19/20 Ceci Aguilar PA [address] [place] [address] Physician Carbon Capture Power Plant Operator Neurosurgery 02/13/21 Nadir John MD [address] [place] [address] Surgeon Neurosurgery 04/29/21 documented as of this encounter
--- OUTSIDE RECORDS SUMMARY | 2024-12-28 13:35 | XMS_ITS | Encounter Summary ---
Author Organization Healthcare Address [address] [place] [address] Care Team Providers Care Aluminum Siding Installer Name Role Phone Ceci Couch APRN Primary Care Provider Jed Toribio MD Unavailable Ceci Aguilar Unavailable [phone] Nadir John MD Unavailable [phone] Ceci Aguilar Unavailable [phone] Nadir John MD Unavailable [phone] Reason for Referral * Medications - Authorized Specialty Diagnoses / Procedures Referred By Jada t Referred To Contact Diagnoses Status post lumbar spinal fusion S/P cervical spinal fusion Nadir John MD [id number] [place] [address] Phone: tel: fax: Referral ID Status Reason Start Date Expiration Date V isits Requested Visits Authorized [id number] Authorized 03/02/2024 03/01/2026 1 1 Encounter Details Date Type Department Care Team (Late st Contact Info) Description 12/07/2024 Refill [place] [facility] [address] [place] [address] Nerissa Bangura APRN, DNP [address] [facility] [address] [place] [address] Status post lumbar spinal fusion; S/P cervical [...] How often do you attend chur or bahai services? Never 08/14/2023 Do you belong to any clubs o r organizations such as christianity groups, unions, fraternal or athletic groups, or [...] Recorded Patient Health Questionnaire-2 Score 6 06/10/2024 [facility] ional Health - Occupational Stress [...] any time in the past 12 m [facility], were you homeless or living in [...] Description 01/04/2025 3:20 PM EST Office Visit [facility] Orthopaedic Surgery & Sports Medicine [address], [address] [place] [address] Nadir John MD [address] [place] [address] documented as of this encounter [...] documented as of this encounter Care Teams Aluminum Siding Installer Relationship Specialty Start Date End Date Ceci Couch APRN [address] [place] [address] PCP - General 07/13/20 Jed Toribio MD [address] [place], [place] [address] Surgeon Neurosurgery 10/02/20 Ceci Aguilar PA [address] [place], [place] [address] Physician Welding Machine Assembler Neurosurgery 10/24/20 Nadir John MD [address] [place], [place] [address] Surgeon Neurosurgery 11/19/20 Ceci Aguilar PA [address] [place], [place] [address] Physician Welding Machine Assembler Neurosurgery 02/13/21 Nadir John MD [address] [place], [place] [address] Surgeon Neurosurgery 04/29/21 documented as of this encounter
--- OUTSIDE RECORDS SUMMARY | 2024-12-28 13:35 | XMS_ITS | Encounter Summary ---
Author Organization Healthcare Address [address] [place] [address] Care Team Providers Care Inverter And Clipper Name Role Phone Ceci Couch APRN Primary Care Provider [phone] Jed Toribio MD Unavailable [phone] Ceci Aguilar Unavailable [phone] Nadir John MD Unavailable [phone] Ceci Aguilar Unavailable [phone] Nadir John MD Unavailable [phone] Reason for Visit * Reason Onset Date Comments Med Refill 11/04/2024 Encounter Details Date Type Department Care Team (Late st Contact Info) Description 11/04/2024 Telephone [place] [facility] [address] [place] [address] Nadir John MD [address] [place] [address] Med Refill Social History Tobacco Use Types Packs/Day Years [...] How often do you attend chur or evangelical services? Never 08/14/2023 Do you belong to any clubs o r organizations such as sikh groups, unions, fraternal or athletic groups, or [...] Recorded Patient Health Questionnaire-2 Score 6 06/10/2024 [facility] - Occupational Stress Questionnaire Answer Date [...] any time in the past 12 m [facility], were you homeless or living in [...] Description 01/04/2025 3:20 PM EST Office Visit [facility] Orthopaedic Surgery & Sports Medicine [address] [place] [address] Nadir John MD [address] [place] [address] documented as of this encounter [...] documented as of this encounter Care Teams Inverter And Clipper Relationship Specialty Start Date End Date Ceci Couch APRN [address] [place] [phone] PCP - General 07/13/20 Jed Toribio MD [address] [place] [address] Surgeon Neurosurgery 10/02/20 Ceci Aguilar PA [address] [place] [address] Physician Jail Guard Neurosurgery 10/24/20 Nadir John MD [address] [place] [address] Surgeon Neurosurgery 11/19/20 Ceci Aguilar PA [address] [place] [address] Physician Jail Guard Neurosurgery 02/13/21 Nadir John MD [address] [place] [address] Surgeon Neurosurgery 04/29/21 documented as of this encounter
--- OUTSIDE RECORDS SUMMARY | 2024-12-28 13:35 | XMS_ITS | Encounter Summary ---
Author Organization [employer] ([place], [place], [place], [place]) Address [address] [place] [address] Care Team Providers Care Quality Analyst/Technical Writer Name Role Phone Unavailable Primary Care Provider Unavailabl e Encounter Details Date Type Department Care Team (Late st Contact Info) Description 06/29/2018 Transcribed Document [facility] [place] [facility] [place] [address] ProviderZe MD [address] [place] [address] Social History Tobacco Use Types [...] Conversion Note - Ze ProviderMD - 06/29/2018 11:38 AM CDT [facility] [address] [id number] MARGA BRONSON :1965 Visit Time:06/29/2018 What to do next Follow-Up Appointments Follow Up with AKIL CARTAGENA MD-OPT When 06/30/2018 08:15 AM EDT [facility]: [address] [facility] [address] [place] [address]- Medications What How Much When Instructions Next Dose acetaminophen-oxycodone (Percocet 5/ 325 oral tablet) 1 Tablet(s) Oral Every 4 Hours as needed for for pain take 2 for severe pain chlorpheniramine (Allergy Relief) 180 Milligram(s) Oral Every Day dicyclomine 10 Milligram(s) Oral Three Times A Day duloxetine (Cymbalta) 90 Milligram(s) Oral Every Day ergocalciferol (Vitamin D2 50,000 intl units (1.25 mg) oral capsule) Oral Weekly fluticasone nasal (Flonase 50 mcg/ inh nasal spray) 1 [place](s) Nasal Two Times A Day gabapentin 900 Milligram(s) Oral Three Times A Day hydrochlorothiazide-triamterene (hydrochlorothiazide-triamterene 25 mg-37.5 mg oral tablet) 1 Tablet(s) Oral Every Day lactobacillus rhamnosus GG ([facility] [employer] [facility]) 1 Tablet(s) Oral Every Day lamotrigine 100 Milligram(s) Oral Every Day lisinopril 20 Milligram(s) Oral At Bedtime naproxen 440 Milligram(s) Oral Four Times A Day as needed for Pain Non Formulary (Non Formulary Medication) 1 Tablet(s) Oral Two Times A Day gummie fibers omeprazole 20 Milligram(s) Oral Every Day polyethylene glycol 3350 (MiraLax) 1 capful Oral Two Times A Day as needed for Constipation quetiapine (Seroquel 200 mg oral tablet) Take your medications faithfully. Do NOT skip medication. Do NOT stop taking medications without the direction of a physician. Carry a list of your medications with you at all times, and take this medication list with you to your first follow up visit. Report any side effects. Avoid herbal remedies unless discussed with your physician. As part of your treatment plan, your physician may have prescribed a limited course of a controlled substance. This medication may be given to help people with moderate or severe pain or for other medical conditions, but there are risks involved with treatment. Common side effects may include nausea, constipation, drowsiness, sweating, itching, dry mouth, and rash. More serious side effects may include cognitive and motor impairment, like problems with thinking, concentrating, alertness, and movement (e.g. slowed reflexes), and driving and operating heavy machinery can be dangerous. It is important for you to talk to your physician if you have these side effects or questions. These controlled substances can produce physical dependence and be habit-forming if taken for an extended period of time, which means that the body has gotten used to them and may experience withdrawal symptoms if they are abruptly stopped. Withdrawal symptoms can include runny nose, sweating, goose bumps, diarrhea, abdominal cramping, rapid heartbeat, difficulty sleeping, and nervousness. Please dispose of unused and medications per pharmacy guidance. Education Materials Cataract A cataract is cloudiness on the [...] diabetes. ??? Have high blood pressure. ??? Take certain medicines, such as steroids or hormone replacement [...] exam. You may need to see an health informatics specialist (imaging services director or t rail turner). Your health care provider may enlarge (dilate) [...] by your health care provider. ??? Take zdlg-iqy-czzgbct and prescription medicines only as told by [...] 02/16/2006 Document Revised: 06/26/2016 Document Reviewed: 08/22/2015 [employer] Interactive Patient Education ?? 2017 [employer]. Monitored Anesthesia Care Anesthesia is a term [...] including vitamins, herbs, eye drops, creams, and tdra-jwh-uorkske medicines. ??? Any use of steroids (by [...] Up to 2 hours before the procedure ??? you may continue to drink clear liquids, such as water, clear fruit juice, black coffee, and plain tea. Eating and drinking restrictions Follow instructions from your health care provider about eating and drinking, which may include: ??? 8 hours before the procedure ??? stop eating heavy meals or foods such as meat, fried foods, or fatty foods. ??? 6 hours before the procedure ??? stop eating light meals or foods, such as toast or cereal. ??? 6 hours before the procedure ??? stop drinking milk or drinks that contain milk. ??? 2 hours before the procedure ??? stop drinking clear liquids. Medicines Ask your [...] 11/12/2005 Document Revised: 07/25/2016 Document Reviewed: 06/08/2016 [employer] Interactive Patient Education ?? 2017 [employer]. Emergency Awareness and Preventative Care STROKE is an EMERGENCY Every Minute Counts Act FAST and Check for these signs: FACE Does the face look uneven? ARM Does one arm drift down? SPEECH Does their speech sound strange? TIME Call at any sign of stroke Stroke Risk Factors Atrial Fibrillation (irregular heartbeat) Diabetes Family history of stroke Heart Disease Heavy alcohol use High Blood Pressure High Cholesterol Physical inactivity and obesity Smoking Cigarette Smoking The facts are clear, cigarette smoking will shorten your life. Smoking can cause many illnesses along the way. As a healthcare provider, we recommend that you stop smoking. Assistance with quitting is available by contacting 1-230-VSUM-NOW. This is a free resource providing counseling, support, and referral. Or you may contact your personal physician. National Suicide Prevention Lifeline: The National Suicide Prevention Lifeline is a national network of local crisis centers that provides free and confidential emotional support to people in suicidal crisis or emotional distress 24 hours a day, 7 days a week. Don't Wait! Stop a Heart Attack Before it Starts What is a heart attack? A heart attack is damage or to a part of the heart from severely decreased or lack of blood flow to the heart. Over time, arteries can become narrow from the buildup of fat and cholesterol, which is called plaque. The plaque can rupture causing a blood clot to form. When the blood clot forms, the artery can become severely narrowed or completely blocked, causing a heart attack. Heart attack is the leading cause of in the [place]. 85% of muscle damage occurs within the first 2 hours. Delay in the recognition of heart attack symptoms increases the chances of . Know the early symptoms of a heart attack: Nausea Feeling of fullness in chest Jaw Pain Pain that travels down one or both arms Fatigue/being tired Anxiety Back Pain Chest pressure, squeezing, or discomfort Shortness of breath Sweating, or a cold sweat Feeling of impending doom There are unusual signs of a heart attack, too! Women, the elderly, and diabetics may present with atypical symptoms: Fainting/dizziness Weakness Confusion Risk Factors for a Heart Attack Some heart disease risk factors, such as age and family history, cannot be changed. Others, like smoking and lack of exercise, can be changed. Smoking High Cholesterol High Blood Pressure Family History Obesity Age Gender (Males are at higher risk) Lack of Exercise Diabetes Diet Stress Excessive Alcohol Intake If you or someone you know is experiencing the signs and symptoms of a heart attack, DON???T DELAY. Call immediately and seek help. If someone collapses, perform CPR! Do not attempt to drive if you are having symptoms of heart attack. Hands-Only CPR Why Hands-Only CPR? Hands-Only CPR has been shown to be as effective as conventional CPR for cardiac arrests that occur outside of a hospital. Survival depends on immediately receiving CPR from someone nearby. How do you perform Hands-Only CPR? There are two easy steps: Call if you see a teen or adult collapse Push hard and fast in the center of the chest at a beat of 100 beats per minute. Save a life! 4 WAYS TO GET AHEAD OF SEPSIS SEPSIS is a MEDICAL EMERGENCY. Time matters! Infections put you and your family at risk for a life-threatening condition called sepsis. Sepsis is the body's extreme response to an infection. It is life-threatening, and without timely treatment, sepsis can rapidly lead to tissue damage, organ failure, and . Sepsis happens when an infection you already have-in your skin, lungs, urinary tract or somewhere else-triggers a chain reaction throughout your body. 1 PREVENT INFECTIONS Take good care of chronic conditions. Talk to your doctor about getting the recommended vaccines. 2 PRACTICE GOOD HYGIENE Wash your hands frequently. Keep cuts or open sores clean and covered until they are healed. 3 KNOW THE SYMPTOMS Confusion or disorientation Shortness of breath High heart rate Fever, shivering, or feeling very cold Extreme pain or discomfort Clammy or sweaty skin 4 ACT FAST Get medical care IMMEDIATELY if you suspect sepsis or if you have an infection that is not getting better or is getting worse. To learn more about sepsis and how to prevent infections, visit www.cdc.gov/sepsis. Patient Portal Reminder: Be sure to sign up for the [facility] patient portal, which gives you 22/09 access to your medical information ??? including these discharge instructions ??? using your computer, smartphone, or tablet. Just go to [employer] to get started. Questions? Call . Test Results Laboratory or Other Results This Visit (last charted value for your 06/29/2018 visit) No Laboratory or Other Results This Visit Patient Name:MARGA BRONSON iLsa I have received this information and was given the opportunity to ask questions. Patient/Medicare Specialist Name: Patient/Medicare Specialist Signature: Relationship to Patient: Clinician/Hospital Medicare Specialist Signature: Date: documented in this encounter Plan of Treatment Not on file documented as of this encounter Visit Diagnoses Not on filedocumented in this encounter
--- OUTSIDE RECORDS SUMMARY | 2024-12-28 13:35 | XMS_ITS | Encounter Summary ---
Author Organization [employer] ([place], [place], [place], [place]) Address [address] [place] [address] Care Team Providers Care Horizontal Boring Mill Operator Name Role Phone Unavailable Primary Care Provider Unavailabl e Encounter Details Date Type Department Care Team (Late st Contact Info) Description 06/29/2018 Transcribed Document [facility] [place] [facility] [place] [address] ProviderZe MD [address] [place] [address] Social History Tobacco Use Types [...] Conversion Note - Ze ProviderMD - 06/29/2018 11:42 AM CDT [facility] [address] [place] [address] MARGA BRONSON :1965 Visit Time:06/29/2018 What to do next Instructions From Your Care Team Do not lie on Right side for 7 days; Refer to Dr Cui post Cataract instructions Follow-Up Appointments Follow Up with AKIL CARTAGENA MD-OPT When 06/30/2018 08:15 AM EDT [facility] [address] [place] [address]- Medications What How Much When Instructions Next [...] (Flonase 50 mcg/ inh nasal spray) 1 [place](s) Nasal Two Times A Day gabapentin 900 Milligram(s) Oral Three Times A Day hydrochlorothiazide-triamterene (hydrochlorothiazide-triamterene 25 mg-37.5 mg oral tablet) 1 Tablet(s) Oral Every Day lactobacillus rhamnosus GG ([facility] [employer] [facility]) 1 Tablet(s) Oral Every Day lamotrigine 100 [...] exam. You may need to see an intranet specialist (ironworker wire fence erector or document photographer). Your health care provider may enlarge (dilate) [...] by your health care provider. ??? Take bcgl-hdt-gicqhbo and prescription medicines only as told by [...] 02/16/2006 Document Revised: 06/26/2016 Document Reviewed: 08/22/2015 [employer] Interactive Patient Education ?? 2017 [employer]. Monitored Anesthesia Care Anesthesia is a term [...] including vitamins, herbs, eye drops, creams, and ktbw-xxj-tpkmujc medicines. ??? Any use of steroids (by [...] 11/12/2005 Document Revised: 07/25/2016 Document Reviewed: 06/08/2016 [employer] Interactive Patient Education ?? 2017 [employer]. acetaminophen (oral) (a SEET a MIN oh fen) Actamin, Anacin AF, Apra, Bromo Wilson, Children's Tylenol, Elixsure Fever/Pain, Mapap, Medi-Tabs, Q-Pap, Silapap Childrens, Tactinal, Tempra Quicklets, Tycolene, Tylenol, Vitapap What is the most important information I should know about acetaminophen? You should not use this medication if you have severe liver disease. An overdose of acetaminophen can damage your liver or cause . ? Adults and teenagers who weigh at least 110 pounds should not take more than 1000 milligrams (mg) at one time, or more than 4000 mg in 24 hours. ?? Children younger than 12 years old should not take more than 5 doses in 24 hours, using only the number of milligrams per dose that is recommended for the child's weight and age. Use exactly as directed on the label. Avoid also using other medicines that contain acetaminophen (sometimes abbreviated as APAP), or you could have a fatal overdose. Call your doctor at once if you have nausea, pain in your upper stomach, itching, loss of appetite, dark urine, silvina-colored stools, or jaundice (yellowing of your skin or eyes). Stop taking this medicine and call your doctor right away if you have skin redness or a rash that spreads and causes blistering and peeling. What is acetaminophen? There are many brands and forms of acetaminophen available. Not all brands are listed on this leaflet. Acetaminophen is a pain reliever and a fever sports book server. Acetaminophen is used to treat many conditions such as headache, muscle aches, arthritis, backache, toothaches, colds, and fevers. Acetaminophen may also be used for purposes not listed in this medication guide. What should I discuss with my healthcare provider before taking acetaminophen? You should not take acetaminophen if you are allergic to it, or if you have severe liver disease. Do not take acetaminophen without a doctor's advice if you have ever had alcoholic liver disease (cirrhosis) or if you drink more than 3 alcoholic beverages per day. You may not be able to take acetaminophen. Your doctor will determine whether acetaminophen is safe for you to use during . Do not use this medicine without the advice of your doctor if you are . Acetaminophen can pass into breast milk and may harm a nursing baby. Tell your doctor if you are breast-feeding a baby. Do not give this medicine to a child younger than 2 years old without the advice of a doctor. How should I take acetaminophen? Use exactly as directed on the label, or as prescribed by your doctor. Do not use in larger or smaller amounts or for longer than recommended. Do not take more than your recommended dose. An overdose of acetaminophen can damage your liver or cause . ? Adults and teenagers who weigh at least 110 pounds (50 kilograms): Do not take more than 1000 milligrams (mg) at one time. Do not take more than 4000 mg in 24 hours. ?? Children younger than 12 years old: Do not take more than 5 doses of acetaminophen in 24 hours. Use only the number of milligrams per dose that is recommended for the child's weight and age. Use exactly as directed on the label. ?? Avoid also using other medicines that contain acetaminophen, or you could have a fatal overdose. If you are treating a child, use a pediatric form of acetaminophen. Use only the special dose-measuring dropper or oral syringe that comes with the specific pediatric form you are using. Carefully follow the dosing directions on the medicine label. Measure liquid medicine with the dosing syringe provided, or with a special dose-measuring spoon or medicine cup. If you do not have a dose-measuring device, ask your pharmacist for one. Acetaminophen made for infants is available in two different dose concentrations, and each concentration comes with its own medicine dropper or oral syringe. These dosing devices are not equal between the different concentrations. Using the wrong device may cause you to give your child an overdose of acetaminophen. Never mix and match dosing devices between infant formulations of acetaminophen. You may need to shake the liquid before each use. Follow the directions on the medicine label. The chewable tablet must be chewed thoroughly before you swallow it. Make sure your hands are dry when handling the acetaminophen disintegrating tablet. Place the tablet on your tongue. It will begin to dissolve right away. Do not swallow the tablet whole. Allow it to dissolve in your mouth without chewing. To use the acetaminophen effervescent granules, dissolve one packet of the granules in at least 4 ounces of water. Stir this mixture and drink all of it right away. To make sure you get the entire dose, add a little more water to the same glass, swirl gently and drink right away. Stop taking acetaminophen and call your doctor if: ? you still have a fever after 3 days of use; ?? you still have pain after 7 days of use (or 5 days if treating a child); ?? you have a skin rash, ongoing headache, or any redness or swelling; or ?? if your symptoms get worse, or if you have any new symptoms. This medication can cause unusual results with certain lab tests for glucose (sugar) in the urine. Tell any doctor who treats you that you are using acetaminophen. Store at room temperature away from heat and moisture. What happens if I miss a dose? Since acetaminophen is used when needed, you may not be on a dosing schedule. If you are on a schedule, use the missed dose as soon as you remember. Skip the missed dose if it is almost time for your next scheduled dose. Do not use extra medicine to make up the missed dose. What happens if I overdose? Seek emergency medical attention or call the Poison Help line at . An overdose of acetaminophen can be fatal. The first signs of an acetaminophen overdose include loss of appetite, nausea, vomiting, stomach pain, sweating, and confusion or weakness. Later symptoms may include pain in your upper stomach, dark urine, and yellowing of your skin or the whites of your eyes. What should I avoid while taking acetaminophen? Ask a doctor or pharmacist before using any other cold, allergy, pain, or sleep medication. Acetaminophen (sometimes abbreviated as APAP) is contained in many combination medicines. Taking certain products together can cause you to get too much acetaminophen which can lead to a fatal overdose. Check the label to see if a medicine contains acetaminophen or APAP. Avoid drinking alcohol. It may increase your risk of liver damage while taking acetaminophen. What are the possible side effects of acetaminophen? Get emergency medical help if you have signs of an allergic reaction: hives; difficulty breathing; swelling of your face, lips, tongue, or throat. In rare cases, acetaminophen may cause a severe skin reaction that can be fatal. This could occur even if you have taken acetaminophen in the past and had no reaction. Stop taking this medicine and call your doctor right away if you have skin redness or a rash that spreads and causes blistering and peeling. If you have this type of reaction, you should never again take any medicine that contains acetaminophen. Stop taking acetaminophen and call your doctor at once if you have: ? nausea, upper stomach pain, itching, loss of appetite; ?? dark urine, silvina-colored stools; or ?? jaundice (yellowing of the skin or eyes). This is not a complete list of side effects and others may occur. Call your doctor for medical advice about side effects. You may report side effects to FDA at 5-662-QFL-4596. What other drugs will affect acetaminophen? Other drugs may interact with acetaminophen, including prescription and wune-phf-tqemwzo medicines, vitamins, and herbal products. Tell your doctor about all your current medicines and any medicine you start or stop using. Where can I get more information? Your pharmacist can provide more information about acetaminophen. Remember, keep this and all other medicines out of the reach of children, never share your medicines with others, and use this medication only for the indication prescribed. Every effort has been made to ensure that the information provided by [employer]. ('[employer]') is accurate, up-to-date, and complete, but no guarantee is made to that effect. Drug information contained herein may be time sensitive. [employer] information has been compiled for use by healthcare practitioners and consumers in the [place] and therefore [employer] does not warrant that uses outside of the [place] are appropriate, unless specifically indicated otherwise. [employer] drug information does not endorse drugs, diagnose patients or recommend therapy. [employer] drug information is an informational resource designed to assist licensed healthcare practitioners in caring for their patients and/or to serve consumers viewing this service as a supplement to, and not a substitute for, the expertise, skill, knowledge and judgment of healthcare practitioners. The absence of a warning for a given drug or drug combination in no way should be construed to indicate that the drug or drug combination is safe, effective or appropriate for any given patient. [employer] does not assume any responsibility for any aspect of healthcare administered with the aid of information [employer] provides. The information contained herein is not intended to cover all possible uses, directions, precautions, warnings, drug interactions, allergic reactions, or adverse effects. If you have questions about the drugs you are taking, check with your doctor, nurse or pharmacist. Copyright 0283-7359 [employer]. Version: 20.03. Revision Date: 09/10/2016. Emergency Awareness and Preventative Care STROKE is [...] Assistance with quitting is available by contacting 8-780-NRCE-NOW. This is a free resource providing counseling, [...] Be sure to sign up for the [facility] patient portal, which gives you 22/09 access to your medical information ??? including these discharge instructions ??? using your computer, smartphone, or tablet. Just go to [employer] to get started. Questions? Call . Test Results Laboratory or Other Results This Visit (last charted value for your 06/29/2018 visit) No Laboratory or Other Results This Visit Patient Name:MARGA BRONSON I have received this information and was given the opportunity to ask questions. Patient/Endoscopy Registered Nurse Name: Patient/Endoscopy Registered Nurse Signature: Relationship to Patient: Clinician/Hospital Endoscopy Registered Nurse Signature: Date: Electronically signed by Hanh, [facility] Conversion [employer] [place] Law Clerk Cerner at 06/16/2022 12:02 PM CDT documented in this encounter Plan of Treatment Not on file documented as of this encounter Visit Diagnoses Not on filedocumented in this encounter
--- OUTSIDE RECORDS SUMMARY | 2024-12-28 13:35 | XMS_ITS | Encounter Summary ---
Author Organization [employer] ([place], [place], [place], [place]) Address [address] [place] [address] Care Team Providers Care Bessemer Bottom Maker Name Role Phone Unavailable Primary Care Provider Unavailabl e Encounter Details Date Type Department Care Team (Late st Contact Info) Description 06/29/2018 Transcribed Document [facility] [place] [address] [place] [address] ProviderZe MD [address] [place] [address] Social History Tobacco Use Types [...] 06/29/2018 11:09 AM CDT [facility] Main OR PreOp Summary Primary Physician: AKIL CARTAGENA MD-OPT Finalized Date/Time: 06/29/18 11:24:45 Pt. Name: AILYN LANDAVERDERA Gonzalez /Sex: 1965 Female Med Rec #: [id number] Physician: AKIL CARTAGENA MD-OPT Financial #: [id number] Pt. Type: O Room/Bed: Admit/Disch: 06/29/18 08:20:00 - [place] [facility] [place] [facility] [place] Case Times Entry 1 In Preop 06/29/18 08:30:00 Ready for Holding n/a Room Patient Ready for 06/29/18 10:13:00 Surgery Patient Out of Preop 06/29/18 10:55:00 Patient Out of n/a Holding Room Last Modified By: NIMA WYNN 06/29/18 11:24:40 S[facility] PreOp Case Times Audit 06/29/18 11:24:40 Industrial Technology Education Teacher: HERVE Modifier: [email or web address] <+> 1 Patient Out of Preop Finalized By: NIMA WYNN Document Signatures Signed By: NIMA WYNN 06/29/18 11:24 Electronically signed by Hanh [facility] Conversion Director Investor Relations Cerner at 06/16/2022 12:06 PM CDT documented in this encounter Plan of Treatment Not on file documented as of this encounter Visit Diagnoses Not on filedocumented in this encounter
--- OUTSIDE RECORDS SUMMARY | 2024-12-28 13:35 | XMS_ITS | Encounter Summary ---
Author Organization [employer] ([place], [place], [place], [place]) Address [address] [place] [address] Care Team Providers Care Set Up Operator Tool Name Role Phone Unavailable Primary Care Provider Unavailabl e Encounter Details Date Type Department Care Team (Late st Contact Info) Description 06/29/2018 Transcribed Document [facility] [place] [address] [place] [address] ProviderZe MD [address] [place] [address] Social History Tobacco Use Types [...] Ze ProviderMD - 06/29/2018 11:09 AM CDT [facility] [place] IntraOp Summary Primary Physician: AKIL CARTAGENA MD-OPT Finalized Date/Time: 06/30/18 10:46:05 Pt. Name: MARGA BRONSON Lisa /Sex: 1965 Female Med Rec #: [id number] Physician: AKIL CARTAGENA MD-OPT Financial #: [id number] Pt. Type: O Room/Bed: Admit/Disch: 06/29/18 08:20:00 - 06/29/18 11:53:00 Institution: [facility] [place] IntraOp Case Attendance Entry 1 Entry 2 Entry 3 Case Attendee AKIL CARTAGENA MD-OPT Brenna Parker, Rosy Parker, Arbitrator Cert Role Performed Surgeon/Proceduralist, Elevator Constructor, First Scrub, First First Time In 06/29/18 10:55:00 06/29/18 10:55:00 06/29/18 10:55:00 Time Out 06/29/18 11:28:00 06/29/18 11:28:00 06/29/18 11:28:00 Procedure Cataract Extraction w Cataract Extraction w Cataract Extraction w Intraocular Lens I Intraocular Lens I Intraocular Lens I Other Attendee Superficial Wound Closed By: Last Modified By: Brenna Parker, Brenna Da Silva, RN Brenna Parker RN 06/29/18 11:29:09 06/29/18 11:29:09 06/29/18 11:29:09 Entry 4 Case Attendee PAGE WADE RN Role Performed Monitor RN Time In 06/29/18 10:55:00 Time Out 06/29/18 11:28:00 Procedure Cataract Extraction w Intraocular Lens I Other Attendee Superficial Wound Closed By: Last Modified By: Brenna Parker RN 06/29/18 11:29:09 [facility] IntraOp Case Attendance Audit 06/29/18 11:29:09 Guest Attendant: [email or web address] Modifier: [email or web address] 1 <+> Time Out 1 <*> Procedure Cataract Extraction w Intraocular Lens I 2 <+> Time Out 2 <*> Procedure Cataract Extraction w Intraocular Lens I 3 <+> Time Out 3 <*> Procedure Cataract Extraction w Intraocular Lens I 4 <+> Time Out 4 <*> Procedure Cataract Extraction w Intraocular Lens I 06/29/18 11:13:08 Guest Attendant: [email or web address] Modifier: [email or web address] <+> 1 Procedure 2 <*> Procedure Cataract Extraction w Intraocular Lens I 3 <*> Procedure Cataract Extraction w Intraocular Lens I 4 <*> Procedure Cataract Extraction w Intraocular Lens I 06/29/18 11:12:11 Guest Attendant: [email or web address] Modifier: [email or web address] 2 <+> Time In 2 <*> Procedure Cataract Extraction w Intraocular Lens I 3 <+> Time In 3 <*> Procedure Cataract Extraction w Intraocular Lens I 4 <+> Time In 4 <*> Procedure Cataract Extraction w Intraocular Lens I 06/29/18 11:11:21 Guest Attendant: [email or web address] Modifier: [email or web address] <+> 1 Time In <+> 2 Case Attendee <+> 2 Role Performed <+> 2 Procedure <+> 3 Case Attendee <+> 3 Role Performed <+> 3 Procedure <+> 4 Case Attendee <+> 4 Role Performed <+> 4 Procedure [facility] IntraOp Case Times Entry 1 Patient In Room Time 06/29/18 10:55:00 Out Room Time 06/29/18 11:28:00 Anesthesia Start Time 06/29/18 10:55:00 Stop Time 06/29/18 11:28:00 Surgery / Procedure Times Start Time 06/29/18 11:09:00 Stop Time 06/29/18 11:25:00 Last Modified By: Brenna Parker RN 06/29/18 11:25:23 SJE IntraOp Case Times Audit 06/29/18 11:25:23 Guest Attendant: [email or web address] Modifier: [email or web address] <+> 1 Out Room Time <+> 1 Stop Time <+> 1 Stop Time [facility] IntraOp Communication Entry 1 Communication To Other Comment COMMUNICATION BOARD Last Modified By: Brenna Parker RN 06/29/18 11:10:44 [facility] IntraOp Counts Verification Entry 1 Procedure Cataract Extraction w Intraocular Lens I Count Info Count Type Sharps Counts Verification Baseline/pre-procedure Sequence Count Results Correct, surgeon notified Counts Performed By Count Performed By Rosy Brown, Surgical (Scrub) Refrigerating Engineer Head Cert Count Performed By Brenna Parker RN (RN) Last Modified By: Brenna Parker RN 06/29/18 11:11:34 SJE IntraOp Counts Verification Audit 06/29/18 11:11:34 Guest Attendant: [email or web address] Modifier: CUTWRISK 1 <*> Procedure Cataract Extraction w Intraocular Lens I 1 <+> Count Performed By (Scrub) 1 <+> Count Performed By (RN) SJE IntraOp Counts Final Entry 1 Procedure Cataract Extraction w Intraocular Lens I Final Count Info Count Type Sharps Counts Verification Skin Closure/end of Sequence procedure Count Results Correct, surgeon notified Counts Performed By Count Performed By Rosy Brown, Surgical (Scrub) Refrigerating Engineer Head Cert Count Performed By Brenna Parker RN (RN) Last Modified By: Brenna Parker RN 06/29/18 11:25:15 SJE IntraOp Departure from OR Entry 1 Integumentary Assessment Integumentary WDL Assessment WDL Transfer/Handoff Transfer to Ambulatory unit, Phase II Handoff Method Bedside/Face to face Post-op Transport Stretcher/Gurney Via Patient Transport PAGE WADE RN Accompanied by Last Modified By: Brenna Parker RN 06/29/18 11:11:38 SJE IntraOp Fire Risk Assessment Entry 1 Fire Info Surgical Site or 1- Yes Incision Above the Xyphoid Open O2 Source 1- Yes (Mask or Cannula) Available Ignition 0- No (ESU, Laser, Light Source) Fire Risk 2 Assessment Score Fire Score Fire Risk Yes Assessment Complete Fire Risk Brenna Parker RN Assessment Verified By Fire Risk 06/29/18 11:08:00 Assessment Verified Date/Time Fire Risk High Risk Protocol Yes Implemented Standard Fire Yes Safety Precautions Followed Last Modified By: Brenna Parker RN 06/29/18 11:11:43 SJE IntraOp General Case Weight Training Instructor 1 Case Information OR OR 09 SJE Case Level 1 Room Verified Yes Wound Class I - Clean Specialty SN Ophthalmology Anesthesia Type Moderate Sedation ASA Class 2 Diagnosis Preop Diagnosis CATARACT RIGHT EYE Postop Same As Preop Yes Postop Diagnosis CATARACT RIGHT EYE Last Modified By: Brenna Parker RN 06/29/18 11:11:57 SJE IntraOp Implant Log Entry 1 Type Implant (Synthetic) Implant Log Implant Type Lens Implant IOL ACRYSOF ELMER 6.0 13 Identification [id number] Description Implant Quantity 1 Implant Site RIGHT EYE Implant [id number] Identification Serial Number Implant Maynor Lab:Surg Identification Pump Press Operator Name: Implant [id number] Identification Catalog Number Implant Has an Yes Expiration Date Implant Expiration 11/29/22 Date Tissue Implant Last Modified By: Brenna Parker RN 06/29/18 11:14:14 S[facility] IntraOp Intraoperative Assessment Entry 1 Handoff Method Other Valid History / Yes Physical in Chart Preoperative Yes Checklist Reviewed/Evaluated Allergies Reviewed Yes Patient is Latex No Sensitive Isolation Not applicable Precautions Noted Level of WDL Consciousness (WDL = Alert, Oriented to Person, Place, and Time) Skin Assessment Yes Verified Present Upon IVs Arrival to OR Last Modified By: Brenna Parker RN 06/29/18 11:12:01 S[facility] IntraOp Medication Admin Entry 1 Entry 2 Entry 3 Medication/Irrigant epinephrine 1mg/ml amp tetracaine hcl 0.5% 2ml Lidocaine 4% 5 ml - [id number] ophthalmic solution - injectable - [id number] Combo Med List 1 - Combo Med Time Administered Route of INTRAOCCULAR TOPICAL TOPICAL Administration Dose Dose 0.3 Unit of Measure ml drops drops Volume QS QS QS Administered By AKIL CARTAGENA, AKIL DEL VALLE MD-OPT GARRETT, DAVID T, MD-OPT Procedure Irrigation Irrigant Volume In Irrigant Volume Out Last Modified By: Brenna Parker RN Cutwright, Shawsta, RN Cutwright, Shawsta, RN 06/29/18 11:12:31 06/29/18 11:12:31 06/29/18 11:12:31 Entry 4 Entry 5 Entry 6 Medication/Irrigant BSS 15ml - [id number] Duovisc ophthalmic BSS Plain 500ml - 0.4ml - [id number] Combo Med List 1 - Combo Med Time Administered Route of topical INTRAOCCULAR INTRAOCCULAR Administration Dose Dose Unit of Measure drops ml Volume QS QS QS Administered By Rosy Brown, AKIL Fitch, AKIL DEL VALLE MD-OPT Refrigerating Engineer Head Cert Procedure Irrigation Irrigant Volume In Irrigant Volume Out Last Modified By: Brenna Parker RN Cutwright, Shawsta, RN Cutwright, Shawsta, RN 06/29/18 11:12:32 06/29/18 11:12:32 06/29/18 11:12:32 Entry 7 Entry 8 Medication/Irrigant difluprednate Vigamox 0.5% ophthalmic ophthalmic 0.05% drops solution - [id number] Combo Med List Time Administered Route of TOPICAL INTRAOCCULAR Administration Dose Dose Unit of Measure drops Volume QS QS Administered By AKIL CARTAGENA, AKIL DEL VALLE MD-OPT Procedure Irrigation Irrigant Volume In Irrigant Volume Out Last Modified By: Brenna Parker RN Cutwright, Shawsta, RN 06/29/18 11:12:32 06/29/18 11:12:32 SJE IntraOp Medication Admin Audit 06/29/18 11:12:32 Guest Attendant: [email or web address] Modifier: [email or web address] <+> 3 Volume <+> 3 Administered By <+> 4 Medication/Irrigant <+> 4 Route of Administration <+> 4 Volume <+> 4 Administered By <+> 4 Unit of Measure <+> 5 Medication/Irrigant <+> 5 Route of Administration <+> 5 Volume <+> 5 Administered By <+> 6 Medication/Irrigant <+> 6 Route of Administration <+> 6 Volume <+> 6 Administered By <+> 6 Combo Med List <+> 6 Unit of Measure <+> 7 Medication/Irrigant <+> 7 Route of Administration <+> 7 Volume <+> 7 Administered By <+> 7 Unit of Measure <+> 8 Medication/Irrigant <+> 8 Route of Administration <+> 8 Volume <+> 8 Administered By SJE IntraOp Patient Positioning Entry 1 Procedure Cataract Extraction w Intraocular Lens I Body Position Supine Left Arm Position Resting at side Right Arm Position Resting at side Left Leg Position Uncrossed, parallel Right Leg Position Uncrossed, parallel Position Comments PT REMAINED ON EYE STRETCHER IN BILATERAL WRIST RESTRAINTS WITH PILLOW UNDER KNEES. Feet Uncrossed Yes Pressure Points Yes Checked Positioning Devices Pillows, Soft Cuff Straps Device Position HEAD ON PADDED HEADREST. ARMS ADDUCTED TO SIDES. PILLOW UNDER KNEES. Positioned By Brenna Parker RN, PAGE WADE RN, AKIL CARTAGENA MD-OPT Position Verified Positioning Yes Verified by Anesthesia Positioning Yes Verified by Surgeon Last Modified By: Brenna Parker RN 06/29/18 11:12:41 SJE IntraOp Sign In Entry 1 Patient, Site, Yes Procedure Identified Surgical Consent Yes Confirmed Relevant Surgical Yes Documents Available Surgical Site Yes Marked by person performing procedure Anesthesia Machine Yes Check Completed Medication Checks Yes Completed Allergies No Airway Difficult No Airway/Aspiration Risk Difficult Yes Airway/Aspiration Intervention Equipment Available Blood Loss Risk No Blood Loss Yes Intervention Equipment Prepared and Ready Blood Identifiers Not applicable Verified Per Policy Hypothermia Risk No Warming Measures Yes Taken Last Modified By: Brenna Parker RN 06/29/18 11:12:48 SJE Intra Op Sign Out Entry 1 RN Confirmation Surgical Yes Procedure(s) Identified Instrument, Sponge Yes and Sharps Counts Correct/Documented Equipment Problems N/A Documented Specimen Labeled N/A Correctly Urinary Catheter N/A Documented in IView Patel Patient Yes Recovery Concerns Reviewed with Anesthesia Provider, Surgeon and RN Patel Patient Yes Management Concerns Reviewed with Anesthesia Provider, Surgeon and RN Safety Checklist Yes Elements Complete? RN Sign Out Brenna Parker RN Signature RN Sign Out 06/29/18 11:25:00 Signature Date/Time Plan of Care Outcome - Fire Risk OUTCOME STATEMENT: Goal met Patient is free from injury related to surgical fire Plan of Care Outcome - Pt Positioning OUTCOME STATEMENT: Goal met Absence of signs and symptoms of positioning injury. Plan of Care Outcome - Skin Prep OUTCOME STATEMENT: Goal met Intraoperative care is consistent with measures to prevent infection Plan of Care Outcome - Xray/Images OUTCOME STATEMENT: N/A Absence of observable signs or symptoms of radiation injury Plan of Care Outcome - Counts OUTCOME STATEMENT: Goal met Absence of signs and symptoms of injury related to extraneous objects Last Modified By: Brenna Parker RN 06/29/18 11:25:02 SJE IntraOp Skin Prep Entry 1 Procedure Cataract Extraction w Intraocular Lens I Prescribed N/A Pre-Surgical Prep Completed Prep Area OPERATIVE EYE RIGHT Intraop Prep Integumentary WDL Assessment WDL Prep Agents Betadine solution Prep by Brenna Parker RN Skin Prep Comment 5% BETADINE Hair Removal Methods No hair removal performed Last Modified By: Brenna Parker RN 06/29/18 11:12:56 SJE IntraOp Surgical Procedures Entry 1 Procedure Cataract Extraction w Intraocular Lens Implant Additional CATARACT IOL RIGHT EYE Procedure Description Primary Procedure Yes Primary Surgeon AKIL CARTAGENA MD-OPT Start 06/29/18 11:09:00 Stop 06/29/18 11:25:00 Anesthesia Type Moderate Sedation Specialty SN Ophthalmology Wound Class I - Clean Last Modified By: Brenna Parker RN 06/29/18 11:13:08 SJE IntraOp Surgical Procedures Audit 06/30/18 10:46:04 Guest Attendant: [email or web address] Modifier: [email or web address] 1 <*> Procedure Cataract Extraction w Intraocular Lens Implant 1 <*> Anesthesia Type Local 06/29/18 11:25:06 Guest Attendant: [email or web address] Modifier: [email or web address] 1 <*> Procedure Cataract Extraction w Intraocular Lens Implant 1 <+> Stop SJE IntraOp Time Out Entry 1 Procedure to be Cataract Extraction w Performed Intraocular Lens I Time Out Time Out Pause Time 06/29/18 11:08:00 All activity Yes suspended (unless life threatening emergency) Team Verbally Correct patient Confirms Information identity, Correct side and site are marked, Consent form is present and accurate, Agreement on the procedure to be done, Correct patient position, Confirm the skin prep has dried, Confirm prosthesis/implant/devic e is present, Performed in location of procedure after prepped/draped Antibiotic N/A Prophylaxis Administered Or In Progress Within the Last 60 Minutes Beta Prasanth Yes Administered Venous N/A Thromboembolism Prophylaxis Required Anticipated Critical Events Surgeon None expected Anesthesia Provider None expected Nursing Assures Sterility of instruments, Equipment concerns or issues, Implant Availability Essential Imaging N/A Labeled and Displayed Last Modified By: Brenna Parker RN 06/29/18 11:10:32 Case Comments <None> Finalized By: Brenna Parker RN Document Signatures Signed By: Brenna Parker RN 06/29/18 11:29 Brenna Parker RN 06/30/18 10:46 Unfinalized History Date/Time Username Reason for Unfinalizing Freetext Reason for Unfinalizing 06/30/18 10:45 CUTWRISK Chart Audit documented in this encounter Plan of Treatment Not on file documented as of this encounter Visit Diagnoses Not on filedocumented in this encounter
--- OUTSIDE RECORDS SUMMARY | 2024-12-28 13:35 | XMS_ITS | Encounter Summary ---
Author Organization Healthcare Address [address] [place] [address] Care Team Providers Care Electric Trucker Name Role Phone Ceci Couch APRN Primary Care Provider [phone] Jed Toribio MD Unavailable [phone] Ceci Aguilar Unavailable [phone] Nadir John MD Unavailable [phone] Ceci Aguilar Unavailable [phone] Nadir John MD Unavailable [phone] Reason for Visit * Reason Onset Date Comments Med Refill 11/18/2024 Encounter Details Date Type Department Care Team (Late st Contact Info) Description 11/18/2024 [facility]ill [place] [facility] [address] [place] [address] Daily Erickson MD [address] [place] [address] Status post lumbar spinal fusion; [...] How often do you attend chur or druze services? Never 08/14/2023 Do you belong to any clubs o r organizations such as buddhist groups, unions, fraternal or athletic groups, or [...] Recorded Patient Health Questionnaire-2 Score 6 06/10/2024 [facility] - Occupational Stress Questionnaire Answer [...] any time in the past 12 m [facility], were you homeless or living in a mcfp (including now)? No 10/10/2024 Safety and Environment [...] Description 01/04/2025 3:20 PM EST Office Visit [facility] [address] [place] [address] Nadir John MD [address] [place] [address] documented as of this encounter [...] documented as of this encounter Care Teams Electric Trucker Relationship Specialty Start Date End Date Ceci Couch APRN [address] [place] [address] PCP - General 07/13/20 Jed Toribio MD [address] [place] [address] Surgeon Neurosurgery 10/02/20 Ceci Aguilar PA [address] [place] [address] Physician Head Of Geography Neurosurgery 10/24/20 Nadir John MD [address] [place] [address] Surgeon Neurosurgery 11/19/20 Ceci Aguilar PA [address] [place] [address] Physician Head Of Geography Neurosurgery 02/13/21 Nadir John MD [address] [place] [address] Surgeon Neurosurgery 04/29/21 documented as of this encounter
--- OUTSIDE RECORDS SUMMARY | 2024-12-28 13:35 | XMS_ITS | Encounter Summary ---
Author Organization [facility] Address [address] [id number] Care Team Providers Care Classroom Technology Coach Name Role Phone Ceci Couch APRN Primary Care Provider Jed Toribio MD Unavailable Ceci Aguilar Unavailable [phone] Nadir John MD Unavailable [phone] Ceci Aguilar Unavailable [phone] Nadir John MD Unavailable [phone] Reason for Referral * Medications - Closed Specialty Diagnoses / Procedures Referred By Jada hoyt Referred To Contact Diagnoses Anxiety and depression [place] [address] Phone: tel: fax: Referral ID Status Reason Start Date Expiration Date Visits Re quested Visits Authorized [id number] Closed 1 1 Reason for Visit * Reason Comments Med Refill Encounter Details Date Type Department Care Team (Late Contact Info) Description 12/19/2024 Refill [facility] [address] [place] [address] Ceci Couch APRN [address] [place] [address] Anxiety and depression (Primary Dx) Social History Tobacco Use Types Packs/Day Years [...] week 08/14/2023 How often do you attend [facility] or gnosticist services? Never 08/14/2023 Do you belong to any clubs o r organizations such as gnosticist groups, unions, fraternal or athletic groups, or [...] Recorded Patient Health Questionnaire-2 Score 6 06/10/2024 [facility] - Occupational Stress [...] time in the past 12 m [facility], were you homeless or living in a chcf (including now)? No 10/10/2024 Safety and Environment [...] the past 12 months has th e [employer], gas, oil, or water [employer] threatened to shut off services in your [...] encounter Miscellaneous Notes * Telephone Encounter - Juanis Kirkland RN - 12/19/2024 2:07 PM EDT Venlafaxine refill: chronic medication. Past due for annual wellness visit, last done 08/2023. 30 day supply sent. Please schedule appt for further refills. documented in this encounter Plan of Treatment Upcoming Encounters Date Type Department Care Team (Late st Contact Info) Description 01/04/2025 3:20 PM EST Office Visit [facility] Orthopaedic Surgery & Sports Medicine [address] [place] [address] Nadir John MD [address] [place] [address] documented as of this encounter Goals Goal Patient Goal Type Associated Problems Recent Progress Patient-Stated? Author Autogenerat ed Goal Care Plan Autogenerated Problem No Jordan, My T documented as of this encounter Visit Diagnoses Diagnosis Anxiety and depression- Primary documented in this encounter Additional Health Concerns [...] documented as of this encounter Care Teams Classroom Technology Coach Relationship Specialty Start Date End Date Ceci Couch, ROLL LINE OPERATOR [address] [place] [address] PCP - General 07/13/20 Jed Toribio MD [address] [place] [address] Surgeon Neurosurgery 10/02/20 Ceci Aguilar PA [address] [place] [address] Physician Winding Inspector Neurosurgery 10/24/20 Nadir John MD [address] [place] [address] Surgeon Neurosurgery 11/19/20 Ceci Aguliar PA [address] [place] [address] Physician Winding Inspector Neurosurgery 02/13/21 Nadir John MD [address] [place] [address] Surgeon Neurosurgery 04/29/21 documented as of this encounter
--- OUTSIDE RECORDS SUMMARY | 2024-12-28 13:35 | XMS_ITS | Referral Summary ---
Author Organization [employer] ([place], [place], [place], [place]) Address [address] [place] [address] Care Team Providers Care Locker Room Attendant Name Role Phone Unavailable Primary Care Provider [...]
--- OUTSIDE RECORDS SUMMARY | 2024-12-28 13:35 | XMS_ITS ---
Author Organization [facility] Address [address] [place] [address] Care Team Providers Care Paper Cone Grader Name Role Phone Ceci Couch APRN Primary Care Provider Jed Toribio MD Unavailable [phone] Ceci Aguilar Unavailable [phone] Nadir John MD Unavailable [phone] Ceci Aguilar Unavailable [phone] Nadir John MD Unavailable [phone] Active Problems Problem Noted Date Diagnosed Date [...] Recommend acute rehab. CM sent referral to [facility]. - Nursing to assist patient out of [...] Recommend acute rehab. CM sent referral to [facility]. 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 Past Treatment and Therapy Plans No past plan information found. Lifetime Dose Tracking * Chemical Lifetime Dose Automatic Entry Manual Entr y Fluoro Time 1.517 minutes 1.517 minutes 0 minutes Air Kerma 163.615 mGy 163.615 mGy 0 mGy Resolved Problems Problem Noted Date Diagnosed Date Resolved Date Weakness 05/20/2024 05/31/2024 Unable to ambulate 05/19/2024 Lumbar stenosis with neurogenic claudication 05/31/2024 Cervical radiculopathy at C6 05/01/2020 02/01/2021 Nausea without vomiting 12/29/201805/01
--- OUTSIDE RECORDS SUMMARY | 2024-12-28 13:35 | XMS_ITS | Encounter Summary ---
Author Organization [facility] ([place], [place], [place], [place]) Address [address] [place] [id number] Care Team Providers Care Assembler De[employer] Hull Name Role Phone Unavailable Primary Care Provider Unavailabl e Encounter Details Date Type Department Care Team (Late st Contact Info) Description 06/29/2018 Transcribed Document [facility] [place] Family Medicine [address] [place] [address] ProviderZe MD [address] [place] [address] Social History Tobacco Use Types [...] Conversion Note - Historical ProviderMD - 06/29/2018 10:04 AM CDT Pre Procedure Adult Entered On: 06/29/2018 10:07 EDT Performed On: 06/29/2018 10:04 EDT by PATTY CURTIS RN Height and Weight, Clinical Dosing Height Source : Stated Height Entry Format : [place] Height, Feet : 5 ft(Converted to: 152 cm, 60 Inch) Height, Inches : 0 Inch(Converted to: 0 ft 0 Inch, 0.00 cm) Clinical Height : 152.4 cm Weight Source : Standing scale Weight Entry Format : [place] Clinical Dosing Weight : 65.45 kg Weight, Pounds : 144 lb Body Surface Area (BSA) : 1.62 m2 Body Mass Index : 28.2 kg/m2 (HI) [place] Body Weight : 45 kg PATTY CURTIS RN - 06/29/2018 10:04 EDT Health Histories Smoking Status : Smoker, current status unknown, Former smoker, quit more than 30 days ago Smokeless Tobacco Status : Never Desires Tobacco Cessation Medication : No Reason for No Tobacco Cessation Medication : Refuses FDA approved medications PATTY CURTIS RN - 06/29/2018 10:04 EDT Social History (As Of: 06/29/2018 10:07:53 EDT) Tobacco: Use in Last 12 Months: Cigarettes. Smoking Status Current every day smoker. Years of Use: 30. Packs/Tins Daily: 1. Used Tobacco, but Quit No. Second Hand Smoke Exposure: No. (Last Updated: 05/16/2013 11:35:58 EDT by FRANKLIN ABRAMS RN) Alcohol: Use in Last 12 Months: No. Comments: 05/16/2013 11:36 - FRANKLIN ABRAMS RN: none (Last Updated: 05/16/2013 11:36:08 EDT by FRANKLIN ABRAMS RN) Substance Abuse: Comments: 05/16/2013 11:36 - FRANKLIN ABRAMS RN: none (Last Updated: 05/16/2013 11:36:16 EDT by FRANKLIN ABRAMS RN) Infectious Disease History Infectious Disease History : Mumps Fever/Chills Last 48 Hours : No Travel To [place] with Travel Advisories : No Travel Outside [place] Within Last 30 Days : No Contact With Traveler to Advisory Region : No Tuberculosis Symptoms : None PATTY CURTIS RN - 06/29/2018 10:04 EDT Anesthesia/Transfusion History Family History of Anesthesia Reaction : Prior transfusion without reaction Transfusion History : Prior anesthesia without reaction Family History of Anesthesia Reaction : None PATTY CURTIS RN - 06/29/2018 10:04 EDT Functional Assessment Living Situation : Home Patient Lives With : Alone Persons Assisting Patient at Home : Significant other(s) Mobility Assistance Prior to Admission : Independent Current Home Treatments : None PATTY CURTIS RN - 06/29/2018 10:04 EDT Psychosocial History Do You Have a History of the Following? : Anxiety, Bipolar Disorder, Depression Currently in Unsafe Situation : No Tried to Harm Yourself in the Past? : No Thoughts of Harming/Killing Yourself : No PATTY CURTIS RN - 06/29/2018 10:04 EDT Advance Directive Patient has Advance Directive *Q : No, patient refuses Advance Directive information PATTY CURTIS RN - 06/29/2018 10:04 EDT Spiritual/Cultural Needs Any Spiritual/Cultural Needs or Requests : No PATTY CURTIS RN - 06/29/2018 10:04 EDT Teaching/Learning Assessment Barriers To Learning : None evident Individuals Taught : Patient PATTY CURTIS RN - 06/29/2018 10:04 EDT General Info Arrived From : Home Mode of Arrival on Unit : Ambulatory Legal Guardian : Significant other Support Person/Patient [employer] F[employer] : Yes Support Person/Pt Rep Name : Jennifer henderson Support Person/Pt Rep Contact Information : [phone] cell Want Family/Rep/Phys Notified of Admit : No Emergency Contact #1 : . Emergency Contact #1 Phone Number : . Emergency Contact #1 Relationship : . Emergency Contact #2 : . Emergency Contact #2 Phone Number : . Emergency Contact #2 Relationship : . Primary Language : Ukrainian Communication Barrier : None PATTY CURTIS RN - 06/29/2018 10:04 EDT Sleep Apnea Risk Assmt Hx of Obstructive Sleep Apnea Diagnosis : No Snore Loudly : Yes Tired, Fatigued, or Sleepy During Day : No Observed Stopping Breathing During Sleep : No Have/Are Being Treated for Hypertension : Yes BMI Greater Than 35 kg/m2 : No Age over 50 Years Old : Yes Neck Circumference Greater Than 40 cm : No Gender Male : No STOP-BANG Sleep Apnea Risk Level Score : 3 PATTY CURTIS RN - 06/29/2018 10:04 EDT Roverto Scale Roverto Sensory Perception : No impairment Roverto Moisture : Rarely moist Roverto Activity : Walks frequently Roverto Mobility : No limitation Roverto Nutrition : Excellent Roverto Friction and Shear : No apparent problem Roverto Score : 23 PATTY CURTIS RN - 06/29/2018 10:04 EDT Oxygen Therapy Oxygen Therapy Mode : Room air PATTY CURTIS RN - 06/29/2018 10:04 EDT Pain Assessment Pain Assessment : Initial assessment Pain Scale Goal : 3 Pain Scale Used : 0-10 Scale PATTY CURTIS RN - 06/29/2018 10:04 EDT Fall Risk Scales ABCs Fall Injury Risk Identification : None YUSUF Hx Falls Immediate/Within 3 Months : No Yusuf Secondary Diagnosis : Yes YUSUF Use of Ambulatory Aid : None YUSUF IV Therapy or IV Access : Yes Yusuf Gait/Transferring : Normal, bedrest, immobile Yusuf Mental Status : Oriented to own ability YUSUF Fall Scale Risk Level : 25-45 Medium Risk [place] Fall Interventions : Adequate lighting, Bed in low position, Call device within reach, Hourly comfort/safety rounds, Non-slip footwear, Room free of clutter/spills, Upper side-rails up, Wheels locked, Wires/Cords secured PATTY CURTIS RN - 06/29/2018 10:04 EDT Valuables and Belongings Valuables and Belongings : Clothing Clothing : Common streetwear Clothing Disposition : With family PATTY CURTIS RN - 06/29/2018 10:04 EDT Pain Scale Intensity : 3 PATTY CURTIS RN - 06/29/2018 10:04 EDT Image 4 - Images currently included in the form version of this document have not been included in the text rendition version of the form. Angy Coma Angy Best Motor Response : Obey commands [place] Best Verbal Response : Oriented [place] Eye Opening Response : Spontaneous Angy Coma Score : 15 PATTY CURTIS RN - 06/29/2018 10:04 EDT documented in this encounter Plan of Treatment Not on file documented as of this encounter Visit Diagnoses Not on filedocumented in this encounter
--- NOTE | 2024-12-28 13:45 | CT_ITS ---
FINAL REPORT TECHNIQUE: Axial images through the pelvis were performed by computed tomography. Reconstructed images were obtained and reviewed. This study was performed with techniques to keep radiation doses as low as reasonably achievable, (ALARA). Individualized dose reduction techniques using automated exposure control or adjustment of mA and/or kV according to the patient's size were employed. CLINICAL HISTORY: fall/pain FINDINGS: No fracture is identified. There is fusion hardware in the lower lumbar spine. There is mild narrowing of the hip joint spaces bilaterally. The femoral heads demonstrate normal smooth contour. IMPRESSION: No fracture or acute osseous abnormality. Reviewed, Interpreted and Dictated by Ryan Urias MD Transcribed by Sandy Batista Authenticated and [facility]
--- NOTE | 2024-12-28 13:45 | CT_ITS ---
FINAL REPORT TECHNIQUE: Axial images were obtained of the lumbar spine by computed tomography. Coronal and sagittal reconstruction process performed. This study was performed with techniques to keep radiation doses as low as reasonably achievable (ALARA). Individualized dose reduction techniques using automated exposure control or adjustment of mA and/or kV according to the patient''s size were employed. CLINICAL HISTORY: fall/pain FINDINGS: No acute fracture is identified. There is posterior fusion hardware bridging L2-L5. There is grade 1 spondylolisthesis of L4 on 5. There is advanced endplate sclerosis and irregularity at the L2-3 level. There is also minimal spondylolisthesis of L2 on 3. T12-L1: No significant disc bulge or protrusion. L1-2: No significant disc bulge or protrusion. L2-3: Posterior laminectomy defect. Moderate endplate hypertrophy. Moderate bilateral neuroforaminal narrowing. L3-4: Mild diffuse disc bulge with mild bilateral neuroforaminal narrowing. L4-5: Moderate diffuse disc bulge. Moderate bilateral neuroforaminal narrowing. L5-S1: Moderate diffuse disc bulge and endplate hypertrophy. Moderate bilateral neuroforaminal narrowing. IMPRESSION: L2-L5 fusions with spondylolisthesis of L2 on 3 and L4 and 5. Bilateral neuroforaminal narrowing as above. No acute fracture identified. Reviewed, Interpreted and Dictated by Ryan Urias MD Transcribed by Sandy Batista Authenticated and . [facility]
[2024-12-28] MEDS: KETOROLAC 15MG/ML VIAL 15 MG IV (14:14)
[2024-12-28] MEDS: ORPHENADRINE CITRATE 60MG/2ML VIAL 60 MG IV (14:14)
[2024-12-28 14:34] LABS: Alanine Aminotransferase 10 U/L (12-78); Albumin Level 3.5 g/dl (3.5-5.0); Albumin/Globulin Ratio 0.8 (1.1-1.8); Alkaline Phosphatase 106 U/L (38-126); Anion Gap 9.6 mEq/L (5-15); Aspartate Amino Transferase 20 U/L (14-36); Bilirubin,Total 0.3 mg/dl (0.2-1.3); Blood Urea Nitrogen 14 mg/dl (7-17); Calcium 9.9 mg/dl (8.4-10.2); Carbon Dioxide 31 mmol/L (22.0-30.0); Chloride 98 mmol/L (98-107); Creatinine Clearance Estimated 61 mL/min (50-200); Creatinine,Serum 0.80 mg/dl (0.52-1.04); Estimated Glomerular Filt Rate 74 ml/min (>60); GFR (African American) 89 ML/MIN (>60); Globulin 4.2 g/dL (1.3-3.2); Glucose 72 mg/dl (74-100); Magnesium 1.5 mg/dl (1.6-2.3); Potassium 3.6 mmoL/L (3.5-5.1); Sodium 135 mmol/L (136-145); Total Protein,Serum 7.7 g/dl (6.3-8.2)
[2024-12-28 14:35] LABS: Hematocrit 38.8 % (37.0-47.0); Hemoglobin 12.4 g/dL (12.2-16.2); Immature Granulocytes % 0.3 %; Mean Corpuscular HGB Conc 32.0 g/dL (31.8-35.4); Mean Corpuscular Hemoglobin 27.1 pg (27.0-31.2); Mean Corpuscular Volume 84.9 fl (81-99); Nucleated Red Blood Cells % 0 %; Platelet Count 328 K/mm3 (142-424); Red Blood Count 4.57 M/mm3 (4.20-5.40); Red Cell Distribution Width-SD 43.0 fL; White Blood Count 8.0 K/mm3 (4.8-10.8)
--- NOTE | 2024-12-28 14:37 | PC.NURSE ---
Pre-void bladder scan 218. Notified
[2024-12-28] MEDS: MAGNESIUM OXIDE 400MG TABLET 400 MG PO (15:17)
[2024-12-28 15:35] LABS: Microscopic, Urine URINE MICROSCOPIC (MICROSCOPIC)
[2024-12-28 15:38] LABS: Hepatitis C Ab Qual. W/ RFX NEGATIVE (Negative)
[2024-12-28 15:57] LABS: Bilirubin,Urine Negative (Negative); Color,Urine YELLOW (Yellow); Glucose,Urine (UA) Negative (Negative); Ketones,Urine Negative (Negative); Leukocyte Esterase,Urine Negative (Negative); PH,Urine 6.0 (5.0-8.5); Protein,Urine Negative (Negative); Specific Gravity, Urine 1.025 (1.005-1.030); Urobilinogen,Urine 0.2 EU/dl (0.2)
[2024-12-28 16:00] LABS: Bacteria,Urine 4+ /lpf; Mucus,Urine 4+ /lpf
[2024-12-28 17:57] LABS: Amphetamine/Metha Screen,Urine Negative ng/ml (<1000); Barbiturates Screen,Urine Negative ng/ml (<200); Benzodiazepines Screen,Urine Positive ng/ml (<200); Methadone Screen,Urine Negative ng/ml (<300); Opiate Screen,Urine Positive ng/ml (<300); Phencyclidine Screen,Urine Negative ng/ml (<25)
== END 2024-12-28 18:10 | disposition home or self-care (01) ==
PROVIDERS: Nurse Practitioner Family; Emergency Provider Student in an Organized Health Care Education/Training Program; PCP Nurse Practitioner Family
DX: M54.50 Low back pain, unspecified (principal); G89.29 Other chronic pain; W18.39XA Other fall on same level, initial encounter
CPT/HCPCS: 51798; 72131; 72192; 80053; 80307; 81001; 83735; 85025; 86803; 87086; 87389; 96374; 96375; 99285; J1885; J2360